=== PATIENT | female | born 1940 | race Caucasian/White ===

== ENCOUNTER → 2017-06-02 | Outpatient (CLI) | payer MEDICARE, OTHER ==
--- NOTE | 2017-06-02 16:00 | WOMENS IMAGING REPORT ---
EXAM DESCRIPTION: BILAT SCREENING MAMMO W/CAD COMPLETED DATE/TIME: 06/02/2017 9:03 am REASON FOR STUDY: SCREENING MAMMO Z12.31 ENCNTR SCREEN MAMMOGRAM FOR MALIGNANT NEOPLASM OF [place] COMPARISON: 2011 to 2015 TECHNIQUE: Standard craniocaudal and mediolateral oblique views of each breast recorded using digita l acquisition. LIMITATIONS: None. FINDINGS: No masses, calcifications or architectural distortion. No areas of suspicion. Read with the assistance of CAD. .[facility] - R2 Cenova Version 1.3 .[facility] - R2 Cenova Version 1.3 .[facility] - R2 Cenova Version 2.4 .[facility] - R2 Cenova Version 2.4 .[facility] - R2 Pile Driver Operator Version 9.2 IMPRESSION: NORMAL MAMMOGRAM. BIRADS 1. BREAST DENSITY: b. There are scattered areas of fibroglandular density. BIRAD: 1 NEGATIVE RECOMMENDATION: ROUTINE SCREENING COMMENT: The patient has been notified of the results by letter per MQSA requirements. Additional no tification policies are in place for contacting patient with suspicious or incomplete findings. Quality ID #[id number]: The [employer] recommends an annual screening mammogram for women aged 40 years or over. This facility utilizes a reminder system to ensure that all patients receive reminder letters, and/or direct phone calls for appointments. This includes reminders for routine scr eening mammograms, diagnostic mammograms, or other Breast Imaging Interventions when appropriate. Th is patient will be placed in the appropriate reminder system. The [employer] (ACR) has developed recommendations for screening MRI of the breast s in certain patient populations, to be used in conjunction with mammography. Breast MRI surveillanc e may be appropriate for women with more than 20% lifetime risk of developing breast cancer as deter mined by genetic testing, significant family history of the disease, or history of mantle radiation f or Hodgkins Disease. ACR Practice Guidelines 2008. TECHNICAL DOCUMENTATION: FINDING NUMBER: (1) ASSESSMENT: (1) JOB ID: [id number] [employer]- All Rights Reserved Reading location - IP/workstation name: [email or web address]
== END ==
LOC: WI 08:29
PROVIDERS: ATTEND Physician Assistant Medical
DX: Z12.31 Encounter for screening mammogram for malignant neoplasm of breast (principal)
CPT/HCPCS: 77067

== ENCOUNTER 2018-02-02 14:43 | Inpatient (IN) | payer MEDICARE ==
--- NOTE | 2018-02-02 15:34 | ER Document Report ---
ED General - General Chief Complaint: Shortness Of Breath Stated Complaint: DIFFICULTY BREATHING Time Seen by Provider: 02/02/18 15:23 Mode of Arrival: Ambulatory Information source: Patient Notes: 77-year-old female with a history of atrial fibrillation and diabetes presents emergency department with complaints of pneumonia that has been present for the last 4 days. Patient states that she was seen at [facility] on Wednesday and diagnosed with double pneumonia. She started on 2 antibiotics which she does not know the names of. She states that she followed up on Wednesday and again to. A repeat chest x-ray was done and it was found that the pneumonia is worsening. Patient was sent to the emergency department for further evaluation and workup. Patient states that today she did feel febrile. She has been having a productive cough with brown sputum. Patient denies any chest pain, difficulty breathing, abdominal pain. Patient does not smoke. She is not on home oxygen. She does use a nebulizer. TRAVEL OUTSIDE OF THE [place] IN LAST 30 DAYS: No - HPI Onset: Last week Onset/Duration: Gradual Quality of pain: No pain Severity: None Pain Level: Denies Associated symptoms: Productive cough, Fever Exacerbated by: Denies Relieved by: Denies Similar symptoms previously: Yes Recently seen / treated by doctor: Yes - Related Data Allergies/Adverse Reactions: levofloxacin [From Levaquin] Allergy (Mild, Verified 02/02/18 14:46) N&V Past Medical History - General Information source: Patient - Social History Smoking Status: Former Smoker Family History: Reviewed & Not Pertinent - Past Medical History Cardiac Medical History: Denies: Hx Heart Attack, Hx Hypertension Pulmonary Medical History: Denies: Hx Asthma Neurological Medical History: Denies: Hx Cerebrovascular Accident, Hx Seizures GI Medical History: Reports: Hx Hiatal Hernia. Denies: Hx Hepatitis, Hx Ulcer Infectious Medical History: Denies: Hx Hepatitis Past Surgical History: Denies: Hx Mastectomy, Hx Open Heart Surgery, Hx Pacemaker - Immunizations Hx Pneumococcal Vaccination: 02/15/07 Review of Systems - Review of Systems Constitutional: Fever EENT: No symptoms reported Cardiovascular: No symptoms reported Respiratory: Cough, Sputum Gastrointestinal: No symptoms reported Genitourinary: No symptoms reported Female Genitourinary: No symptoms reported Musculoskeletal: No symptoms reported Skin: No symptoms reported Hematologic/Lymphatic: No symptoms reported Neurological/Psychological: No symptoms reported -: Yes All other systems reviewed and negative Physical Exam - Vital signs Vitals: Resp Pulse Ox 19 90 L 02/02/18 15:10 02/02/18 15:10 - Notes Notes: PHYSICAL EXAMINATION: GENERAL: Well-appearing, well-nourished and in no acute distress. HEAD: Atraumatic, normocephalic. EYES: Pupils equal round and reactive to light, extraocular movements intact, conjunctiva are normal. ENT: Nares patent, oropharynx clear without exudates. Moist mucous membranes. NECK: Normal range of motion, supple without lymphadenopathy LUNGS: Breath sounds clear to auscultation bilaterally and equal. No wheezes rales or rhonchi. HEART: Irregularly irregular pulse. S1S2 ABDOMEN: Soft, nontender, nondistended abdomen. No guarding, no rebound. No masses appreciated. Female : deferred Musculoskeletal: Normal range of motion, no pitting or edema. No cyanosis. NEUROLOGICAL: Cranial nerves grossly intact. Normal speech, normal gait. Normal sensory, motor exams PSYCH: Normal mood, normal affect. SKIN: Warm, Dry, normal turgor, no rashes or lesions noted. Course - Re-evaluation Re-evalutation: 02/02/18 15:48 EKG: Ventricular rate 92, QRS duration 124, QTc 500, atrial fibrillation, right bundle branch block. 02/02/18 17:49 Labs and imaging obtained. White blood cell count is within normal limits. Chest x-ray shows bilateral pulmonary edema and pneumonia. As the patient has been on 2 antibiotics outpatient I will admit her to the hospitalist for further management. I discussed the plan of care with the patient. She is agreeable with admission. Patient states that she has not seen Dr. Campuzano in the last 3 years. She states that she does not want to see him. She is comfortable with seeing the hospitalist. Dr. Belcher accepts admission of the patient. Patient currently stable. - Vital Signs Vital signs: Temp Pulse Resp BP Pulse Ox 99.1 F 28 H 132/82 H 92 02/02/18 17:09 02/02/18 17:01 02/02/18 17:01 02/02/18 17:01 - Laboratory Result Diagrams: 02/02/18 16:28 02/02/18 16:28 Laboratory results interpreted by me: 12/19/18 12/19/18 16:28 16:28 RDW 16.0 H Plt Count 496 H Seg Neutrophils % 80.1 H Lymphocytes % 11.4 L Sodium 136.4 L Creatinine 0.50 L Glucose 65 L AST 45 H Discharge - Discharge Clinical Impression: Pneumonia Qualifiers: Pneumonia type: due to unspecified organism Laterality: bilateral Lung location: unspecified part of lung Qualified Code(s): J18.9 - Pneumonia, unspecified organism Condition: Stable Disposition: ADMITTED OBSERVATION Admitting Provider: Hospitalist Unit Admitted: Medical Floor Referrals: HEALTH,SCREENING DOC [Primary Care Provider] - Follow up as needed
--- NOTE | 2018-02-02 16:38 | RADIOLOGY REPORT (SQ) ---
EXAM DESCRIPTION: CHEST 2 VIEWS COMPLETED DATE/TIME: 02/02/2018 4:13 pm REASON FOR STUDY: pneumonia COMPARISON: 10/12/2012 EXAM PARAMETERS: NUMBER OF VIEWS: two views TECHNIQUE: Digital Frontal and Lateral radiographic views of the chest acquired. RADIATION DOSE: NA LIMITATIONS: none FINDINGS: LUNGS AND PLEURA: Diffuse patchy abnormal air space density is noted bilaterally with diff erential including pulmonary edema and pneumonia. Probable minimal right effusion. No left effusion . MEDIASTINUM AND HILAR STRUCTURES: No masses or contour abnormalities. HEART AND VASCULAR STRUCTURES: Cardiac silhouette is enlarged and there is mild vascular congestion. BONES: No acute findings. HARDWARE: None in the chest. OTHER: No other significant finding. IMPRESSION: Diffuse patchy abnormal air space density is noted bilaterally with differential includi ng pulmonary edema and pneumonia. TECHNICAL DOCUMENTATION: JOB ID: [id number] [employer]- All Rights Reserved Reading location - IP/workstation name: [email or web address]
[2018-02-02 16:43] LABS: ABSOLUTE EOSINOPHILS # (AUTO) 0.1 10^3/uL (0.0-0.6); ABSOLUTE MONOCYTES (AUTO) 0.6 10^3/uL (0.1-1.4); ABSOLUTE NEUT (AUTO) 7.1 10^3/uL (1.7-8.2); BASOPHILS % (AUTO) 0.3 % (0-2); EOSINOPHILS % (AUTO) 0.9 % (0-6); HEMATOCRIT 37.8 % (36.0-47.0); HEMOGLOBIN 12.7 g/dL (12.0-15.5); LYMPHOCYTES % (AUTO) 11.4 % (13-45); MEAN CORPUSCULAR HEMOGLOBIN 28.2 pg (27.0-33.4); MEAN CORPUSCULAR HGB CONC 33.6 g/dL (32.0-36.0); MEAN CORPUSCULAR VOLUME 84 fl (80-97); MONOCYTES % (AUTO) 7.3 % (3-13); PLATELET COUNT 496 10^3/uL (150-450); SEGMENTED NEUTROPHILS % (AUTO) 80.1 % (42-78); TOTAL CELLS COUNTED % (AUTO) 100 %; WHITE BLOOD COUNT 8.8 10^3/uL (4.0-10.5)
[2018-02-02 16:55] LABS: ALANINE AMINOTRANSFERASE 22 U/L (9-52); ALBUMIN 3.6 g/dL (3.5-5.0); ALKALINE PHOSPHATASE 95 U/L (38-126); ANION GAP 10 (5-19); ASPARTATE AMINO TRANSFERASE 45 U/L (14-36); BILIRUBIN,DIRECT 0.3 mg/dL (0.0-0.4); BILIRUBIN,TOTAL 0.3 mg/dL (0.2-1.3); BLOOD UREA NITROGEN 12 mg/dL (7-20); CALCIUM 8.9 mg/dL (8.4-10.2); CARBON DIOXIDE 25 mmol/L (22-30); CHLORIDE 101 mmol/L (98-107); GLUCOSE 65 mg/dL (75-110); POTASSIUM 4.2 mmol/L (3.6-5.0); SODIUM 136.4 mmol/L (137-145)
[2018-02-02] MEDS ORDERED: CEFTRIAXONE INJ 1000 MG VIAL IV ONE (17:41)
[2018-02-02] MEDS ORDERED: DOXYCYCLINE HYCLATE INJ 100 MG VIAL IV ONE (17:43)
[2018-02-02] MEDS ORDERED: DEXTROSE 50%-WATER 25 GM/50 ML DISP.SYRIN IV PRN ×2 (18:06)
[2018-02-02] MEDS ORDERED: DEXTROSE 40% GEL 15 GM TUBE PO PRN ×2 (18:06)
[2018-02-02] MEDS ORDERED: GLUCAGON,HUMAN RECOMB 1 MG INJ IM PRN (18:06)
--- NOTE | 2018-02-02 18:15 | PDOC H&P ---
History of Present Illness Admission Date/PCP: [facility] Patient complains of: cough, SOB, fever History of Present Illness: CHENTE CHILDS is a 77 year old female with a past medical history of axa-[id number]-rvivoomky diabetes mellitus, paroxysmal atrial fibrillation on Eliquis, GERD and history of dermatomyositis who presented with cough, fever and shortness of breath. Patient says that her grandson had some URTI symptoms weeks ago. She started pike ving some nasal congestion and nonproductive cough more than a week ago. She says that on last week, she developed gradually progressive shortness of breath. Her cough also started getting more productive with dark brownish sputum. She was seen in an outpatient clinic on Wednesday and was diagnosed with pneumonia and was prescribed with Augmentin and doxycycline. She said that she started taking the antibiotics on Wednesday but had persistence of symptoms. She had worsening shortness of breath. She says that earlier today, she had subjective fever with no chills. In the ER, her O2 sat was 90% on room air. She is not on home oxygen. Chest x-ray shows bilateral pneumonia. She denies chest pain, palpitations or dizziness. Past Medical History Cardiac Medical History: Reports: Atrial Fibrillation Denies: Myocardial Infarction, Hypertension Pulmonary Medical History: Denies: Asthma Neurological Medical History: Denies: Seizures Endocrine Medical History: Reports: Diabetes Mellitus Type 2 GI Medical History: Reports: Hiatal Hernia Denies: Hepatitis Hematology: Denies: Anemia, Sickle Cell Disease Past Surgical History Past Surgical History: Reports: Tonsillectomy Denies: Amputation, Mastectomy, Pacemaker Social History Smoking Status: Former Smoker Frequency of Alcohol Use: Rare Hx Recreational Drug Use: No Hx Prescription Drug Abuse: No Family History Family History: Reviewed & Not Pertinent Parental Family History Reviewed: Yes - No premature CAD Children Family History Reviewed: No Sibling(s) Family History Reviewed.: No Medication/Allergy Home Medications: Albuterol Sulfate [Proair HFA Inhalation Aerosol 8.5 gm MDI] 2 puff IH Q4HP PRN 02/02/18 Apixaban [Eliquis 5 mg Tablet] 5 mg PO Q12 02/02/18 Canagliflozin [Invokana] 100 mg PO DAILY 02/02/18 Diltiazem HCl [Diltiazem 24Hr ER] 240 mg PO Q12 02/02/18 Ezetimibe [Zetia 10 mg Tablet] 10 mg PO DAILY 02/02/18 Glimepiride [Amaryl 4 mg Tablet] 2 mg PO BID 02/02/18 Ipratropium/Albuterol Sulfate [Duoneb 3 ml Ampul] 3 ml NEB Q8HP PRN 02/02/18 Metformin HCl [Glucophage] 1,000 mg PO BIDBS 02/02/18 Omeprazole 20 mg PO DAILY 02/02/18 Pioglitazone HCl [Actos] 45 mg PO DAILY 02/02/18 Pravastatin Sodium [Pravachol] 20 mg PO DAILY 02/02/18 Allergies/Adverse Reactions: levofloxacin [From Levaquin] Allergy (Mild, Verified 02/02/18 14:46) N&V Review of Systems All systems: reviewed and no additional remarkable complaints except as stated - As mentioned in HPI Physical Exam Vital Signs: Temp Pulse Resp BP Pulse Ox 99.1 F 21 H 139/71 H 93 02/02/18 17:09 02/02/18 18:01 02/02/18 18:01 02/02/18 18:01 Intake & Output 02/01/18 02/02/18 02/03/18 06:59 06:59 06:59 Weight 151 lb 14.376 oz General appearance: PRESENT: no acute distress, well-developed, well-nourished Head exam: PRESENT: atraumatic, normocephalic Eye exam: PRESENT: conjunctiva pink, EOMI, PERRLA. ABSENT: scleral icterus Ear exam: PRESENT: normal external ear exam Mouth exam: PRESENT: moist, tongue midline Neck exam: ABSENT: carotid bruit, JVD, lymphadenopathy, thyromegaly Respiratory exam: PRESENT: crackles - Significant crackles mid to base bilaterally, rhonchi. ABSENT: wheezes Pulses: PRESENT: normal dorsalis pedis pul GI/Abdominal exam: PRESENT: normal bowel sounds, soft. ABSENT: distended, guarding, mass, organolmegaly, rebound, tenderness Rectal exam: PRESENT: deferred Results Laboratory Results: 02/02/18 16:28 02/02/18 16:28 02/02/18 02/02/18 16:28 16:28 WBC 8.8 RBC 4.50 Hgb 12.7 Hct 37.8 MCV 84 MCH 28.2 MCHC 33.6 RDW 16.0 H Plt Count 496 H Seg Neutrophils % 80.1 H Lymphocytes % 11.4 L Monocytes % 7.3 Eosinophils % 0.9 Basophils % 0.3 Absolute Neutrophils 7.1 Absolute Lymphocytes 1.0 Absolute Monocytes 0.6 Absolute Eosinophils 0.1 Absolute Basophils 0.0 Sodium 136.4 L Potassium 4.2 Chloride 101 Carbon Dioxide 25 Anion Gap 10 BUN 12 Creatinine 0.50 L Est GFR ( Amer) > 60 Est GFR (Non-Af Amer) > 60 Glucose 65 L Calcium 8.9 Total Bilirubin 0.3 AST 45 H ALT 22 Alkaline Phosphatase 95 Total Protein 7.0 Albumin 3.6 02/02/18 16:28 Troponin I < 0.012 Impressions: Chest X-Ray 02/02/18 15:31 IMPRESSION: Diffuse patchy abnormal air space density is noted bilaterally with differential including pulmonary edema and pneumonia. Assessment & Plan - Diagnosis (1) Acute respiratory failure with hypoxemia Is this a current diagnosis for this admission?: Yes Plan: Secondary to pneumonia. Patient saturations improved to 94% on 3 L of nasal cannula. (2) Pneumonia Qualifiers: Pneumonia type: due to unspecified organism Laterality: bilateral Lung location: unspecified part of lung Qualified Code(s): J18.9 - Pneumonia, unspecified organism Is this a current diagnosis for this admission?: Yes Plan: Patient denies recent hospitalization. She does have a recent sick contact. Patient has failed outpatient antibiotics particularly Augmentin and doxycycline. Will broaden IV antibiotic coverage for now. Will order a sputum culture. Will also do flu testing. (3) Paroxysmal atrial fibrillation Is this a current diagnosis for this admission?: Yes Plan: Currently in sinus rhythm. Continue Eliqupadmini and p.o. Janym. - Time Time Spent: 30 to 50 Minutes
--- NOTE | 2018-02-02 18:41 | EKG REPORT ---
SEVERITY:- ABNORMAL ECG - ATRIAL FIBRILLATION, V-RATE 64-109 RIGHT BUNDLE BRANCH BLOCK : Confirmed by: Allan Myers MD 02-Feb-2018 18:40:32
[2018-02-02] MEDS ORDERED: VANCOMYCIN HCL 0 MG in DEXTROSE 5%-WATER 250 ML IV NR (21:30)
[2018-02-02] MEDS ORDERED: HEPARIN SOD (PORCINE) 5,000 UNIT/ML 1 ML SYRINGE SUBCUT SCH (22:00)
[2018-02-02] MEDS ORDERED: AZITHROMYCIN 500 MG in DEXTROSE 5%-WATER 250 ML IV SCH (22:00)
[2018-02-02] MEDS ORDERED: VANCOMYCIN HCL 1,000 MG in DEXTROSE 5%-WATER 250 ML IV SCH (22:00)
[2018-02-02] MEDS: ACETYLCYSTEINE 10% NEB 400 MG/4 ML VIAL NEB SCH (22:57)
[2018-02-02] MEDS: ALBUTEROL SULFATE 0.083% NEB 2.5 MG/3 ML AMPUL NEB SCH (22:57)
[2018-02-02] MEDS ORDERED: AZITHROMYCIN INJ 500 MG VIAL IV PRN (23:06)
[2018-02-02] MEDS ORDERED: VANCOMYCIN HCL INJ 1000 MG VIAL IV PRN (23:08)
[2018-02-02] MEDS: PIPERACILLIN SODIUM/TAZOBACTAM 3.375 GM in NORMAL SALINE 100 ML IV SCH (23:14)
[2018-02-02] MEDS: DILTIAZEM HCL 240 MG CAPSULE.CR PO SCH (23:15)
[2018-02-02 23:58] LABS: A TYPE INFLUENZA AG NEGATIVE (NEGATIVE); B INFLUENZA AG NEGATIVE (NEGATIVE)
[2018-02-03] MEDS ORDERED: AZITHROMYCIN 500 MG in DEXTROSE 5%-WATER 250 ML IV ONE ×2
[2018-02-03] MEDS ORDERED: VANCOMYCIN HCL 1,000 MG in DEXTROSE 5%-WATER 250 ML IV ONE (01:00)
[2018-02-03] MEDS: ALBUTEROL SULFATE 0.083% NEB 2.5 MG/3 ML AMPUL NEB SCH ×4 (01:59→20:50)
[2018-02-03] MEDS: ACETYLCYSTEINE 10% NEB 400 MG/4 ML VIAL NEB SCH ×4 (02:00→20:50)
[2018-02-03] MEDS: PIPERACILLIN SODIUM/TAZOBACTAM 3.375 GM in NORMAL SALINE 100 ML IV SCH ×4 (04:17→21:43)
[2018-02-03] MEDS ORDERED: LANSOPRAZOLE 15 MG TAB.RAP.DR ONE (04:59)
[2018-02-03] MEDS: LANSOPRAZOLE 15 MG TAB.RAP.DR PO SCH (05:00)
[2018-02-03] MEDS: DILTIAZEM HCL 240 MG CAPSULE.CR PO SCH ×2 (09:05→21:44)
[2018-02-03] MEDS: MAGNESIUM OXIDE 400 MG TABLET PO SCH (09:05)
[2018-02-03] MEDS: APIXABAN 5 MG TABLET PO SCH ×2 (09:06→17:34)
[2018-02-03] MEDS: ACETAMINOPHEN 325 MG TABLET PO PRN ×2 (09:36→21:51)
[2018-02-03] MEDS ORDERED: AZITHROMYCIN INJ 500 MG VIAL IV SCH (10:00)
[2018-02-03] MEDS ORDERED: APIXABAN 2.5 MG TABLET PO SCH (10:00)
[2018-02-03] MEDS ORDERED: DILTIAZEM HCL 240 MG PO SCH (10:00)
[2018-02-03] MEDS: VANCOMYCIN HCL 1,000 MG in DEXTROSE 5%-WATER 250 ML IV SCH (17:38)
--- NOTE | 2018-02-03 19:20 | PDOC PROGRESS REPORT ---
Subjective Progress Note for:: 02/03/18 Subjective:: CHENTE CHILDS is a 77 year old female with a past medical history of dbi-ftopwpo-ylzauwegg diabetes mellitus, paroxysmal atrial fibrillation on Eliquis, GERD and history of dermatomyositis who presented with cough, fever and shortness of breath who was admitted with bilateral pneumonia failing two outpatient antibiotics. No acute event overnight. Upon encounter this morning, patient appeared more comfortable. She says that she still feels short of breath but this has improved compared to yesterday. She says she is now starting to cough out more brownish sputum. No chest pain no fever chills. Reason For Visit: ACUTE HYPOXIC RESPIRATORY FAILURE,PNEUMONIA Physical Exam Vital Signs: Temp Pulse Resp BP Pulse Ox 98.1 F 74 14 116/68 92 02/03/18 11:48 02/03/18 13:55 02/03/18 13:50 02/03/18 11:48 02/03/18 13:50 Intake & Output 02/02/18 02/03/18 02/04/18 06:59 06:59 06:59 Intake Total 700 1224 Balance 700 1224 Weight 151 lb 14.376 oz General appearance: PRESENT: no acute distress, well-developed, well-nourished Head exam: PRESENT: atraumatic, normocephalic Eye exam: PRESENT: conjunctiva pink, EOMI, PERRLA. ABSENT: scleral icterus Ear exam: PRESENT: normal external ear exam Mouth exam: PRESENT: moist, tongue midline Neck exam: ABSENT: carotid bruit, JVD, lymphadenopathy, thyromegaly Respiratory exam: PRESENT: crackles - Crackles in the bases improved from yesterday. ABSENT: rales, rhonchi, wheezes Cardiovascular exam: PRESENT: RRR. ABSENT: diastolic murmur, rubs, systolic murmur Pulses: PRESENT: normal dorsalis pedis pul GI/Abdominal exam: PRESENT: normal bowel sounds, soft. ABSENT: distended, guarding, mass, organolmegaly, rebound, tenderness Rectal exam: PRESENT: deferred Neurological exam: PRESENT: alert, awake, oriented to person, oriented to place, oriented to time, oriented to situation, CN II-XII grossly intact. ABSENT: motor sensory deficit Results Laboratory Results: 02/02/18 16:28 02/02/18 16:28 02/02/18 16:28 Troponin I < 0.012 Impressions: Chest X-Ray 02/02/18 15:31 IMPRESSION: Diffuse patchy abnormal air space density is noted bilaterally with differential including pulmonary edema and pneumonia. Assessment & Plan - Diagnosis (1) Acute respiratory failure with hypoxemia Is this a current diagnosis for this admission?: Yes Plan: Saturating on 2 L nasal cannula. Secondary to pneumonia. (2) Pneumonia Qualifiers: Pneumonia type: due to unspecified organism Laterality: bilateral Lung location: unspecified part of lung Qualified Code(s): J18.9 - Pneumonia, u nspecified organism Is this a current diagnosis for this admission?: Yes Plan: Patient denies recent hospitalization. She does have a recent sick contact. Patient has failed outpatient antibiotics particularly Augmentin and doxycycline. Continue broad IV antibiotic coverage for now. Sputum culture pending. Flu testing negative. (3) Paroxysmal atrial fibrillation Is this a current diagnosis for this admission?: Yes Plan: Currently in sinus rhythm. Continue Eliquis and p.o. Cardizem. - Time Time Spent with patient: 15-24 minutes
[2018-02-03] MEDS: AZITHROMYCIN 500 MG in DEXTROSE 5%-WATER 250 ML IV SCH (22:42)
[2018-02-04] MEDS: ALBUTEROL SULFATE 0.083% NEB 2.5 MG/3 ML AMPUL NEB SCH ×4 (01:54→20:30)
[2018-02-04] MEDS: PIPERACILLIN SODIUM/TAZOBACTAM 3.375 GM in NORMAL SALINE 100 ML IV SCH ×4 (03:20→21:14)
[2018-02-04] MEDS: ACETYLCYSTEINE 10% NEB 400 MG/4 ML VIAL NEB SCH ×4 (03:43→20:30)
[2018-02-04] MEDS: LANSOPRAZOLE 15 MG TAB.RAP.DR PO SCH (05:24)
[2018-02-04] MEDS: VANCOMYCIN HCL 1,000 MG in DEXTROSE 5%-WATER 250 ML IV SCH ×2 (05:24→17:22)
[2018-02-04] MEDS: MAGNESIUM OXIDE 400 MG TABLET PO SCH (09:06)
[2018-02-04] MEDS: APIXABAN 5 MG TABLET PO SCH ×2 (09:06→17:23)
[2018-02-04] MEDS: DILTIAZEM HCL 240 MG CAPSULE.CR PO SCH ×2 (09:47→21:09)
--- NOTE | 2018-02-04 16:09 | PDOC PROGRESS REPORT ---
Subjective Progress Note for:: 02/04/18 Subjective:: CHENTE CHILDS is a 77 year old female with a past medical history of mpj-opbsrmh-zpxzpattd diabetes mellitus, paroxysmal atrial fibrillation on Eliquis, GERD and history of dermatomyositis who presented with cough, fever and shortness of breath who was admitted with bilateral pneumonia failing two outpatient antibiotics. No acute event overnight. Upon encounter this morning, patient appeared comfortable. She says that her shortness of breath continued to improve she says she is not at her baseline yet.. She is saturating well on 2 L of nasal cannula. Patient ambulated in the hallway and had shortness of breath after a few steps. No chest pain, no fever chills. Reason For Visit: ACUTE HYPOXIC RESPIRATORY FAILURE,PNEUMONIA Physical Exam Vital Signs: Temp Pulse Resp BP Pulse Ox 98.8 F 85 16 133/72 H 94 02/04/18 11:50 02/04/18 14:01 02/04/18 14:01 02/04/18 11:50 02/04/18 14:01 Intake & Output 02/03/18 02/04/18 02/05/18 06:59 06:59 06:59 Intake Total 700 3106 200 Balance 700 3106 200 Weight 151 lb 14.376 oz 151 lb 10.848 oz General appearance: PRESENT: no acute distress, well-developed, well-nourished Head exam: PRESENT: atraumatic, normocephalic Eye exam: PRESENT: conjunctiva pink, EOMI, PERRLA. ABSENT: scleral icterus Ear exam: PRESENT: normal external ear exam Mouth exam: PRESENT: moist, tongue midline Neck exam: ABSENT: carotid bruit, JVD, lymphadenopathy, thyromegaly Respiratory exam: PRESENT: crackles - Occasional crackles on the bases, significantly improved from yesterday. ABSENT: rales, rhonchi, wheezes Cardiovascular exam: PRESENT: RRR. ABSENT: diastolic murmur, rubs, systolic murmur Pulses: PRESENT: normal dorsalis pedis pul GI/Abdominal exam: PRESENT: normal bowel sounds, soft. ABSENT: distended, guarding, mass, organolmegaly, rebound, tenderness Rectal exam: PRESENT: deferred Neurological exam: PRESENT: alert, awake, oriented to person, oriented to place, oriented to time, oriented to situation, CN II-XII grossly intact. ABSENT: motor sensory deficit Results Laboratory Results: 02/02/18 16:28 02/02/18 16:28 02/02/18 16:28 Troponin I < 0.012 Impressions: Chest X-Ray 02/02/18 15:31 IMPRESSION: Diffuse patchy abnormal air space density is noted bilaterally with differential including pulmonary edema and pneumonia. Assessment & Plan - Diagnosis (1) Acute respiratory failure with hypoxemia Is this a current diagnosis for this admission?: Yes Plan: Improving. Saturating on 2 L nasal cannula. Secondary to pneumonia. (2) Pneumonia Qualifiers: Pneumonia type: due to unspecified organism Laterality: bilateral Lung location: unspecified part of lung Qualified Code(s): J18.9 - Pneumonia, unspecified organism Is this a current diagnosis for this admission?: Yes Plan: Patient denies recent hospitalization. She does have a recent sick contact. Patient has failed outpatient antibiotics particularly Augmentin and doxycycline. Continue broad IV antibiotic coverage for now. Sputum culture pending. Flu testing negative. (3) Paroxysmal atrial fibrillation Is this a current diagnosis for this admission?: Yes Plan: Currently in sinus rhythm. Continue Eliquis and p.o. Cardizem. - Time Time Spent with patient: 15-24 minutes
[2018-02-04] MEDS: INSULIN LISPRO 100 UNIT/ML 3 ML VIAL SUBCUT PRN (17:23)
[2018-02-04] MEDS: ACETAMINOPHEN 325 MG TABLET PO PRN (21:13)
[2018-02-04] MEDS: AZITHROMYCIN 500 MG in DEXTROSE 5%-WATER 250 ML IV SCH (22:06)
[2018-02-05] MEDS: ACETYLCYSTEINE 10% NEB 400 MG/4 ML VIAL NEB SCH ×4 (01:53→19:21)
[2018-02-05] MEDS: ALBUTEROL SULFATE 0.083% NEB 2.5 MG/3 ML AMPUL NEB SCH ×4 (01:53→19:21)
[2018-02-05] MEDS: PIPERACILLIN SODIUM/TAZOBACTAM 3.375 GM in NORMAL SALINE 100 ML IV SCH ×4 (02:32→21:09)
[2018-02-05] MEDS: LANSOPRAZOLE 15 MG TAB.RAP.DR PO SCH (05:26)
[2018-02-05] MEDS: VANCOMYCIN HCL 1,000 MG in DEXTROSE 5%-WATER 250 ML IV SCH ×3 (05:34→22:58)
[2018-02-05 05:47] LABS: VANCOMYCIN,TROUGH 7.2 ug/mL (5.0-20.0)
[2018-02-05] MEDS: ACETAMINOPHEN 325 MG TABLET PO PRN (08:39)
[2018-02-05] MEDS: MAGNESIUM OXIDE 400 MG TABLET PO SCH (09:29)
[2018-02-05] MEDS: APIXABAN 5 MG TABLET PO SCH ×2 (09:29→17:19)
[2018-02-05] MEDS: DILTIAZEM HCL 240 MG CAPSULE.CR PO SCH ×2 (09:29→21:06)
--- NOTE | 2018-02-05 09:43 | RADIOLOGY REPORT (SQ) ---
EXAM DESCRIPTION: CHEST SINGLE VIEW COMPLETED DATE/TIME: 02/05/2018 9:30 am REASON FOR STUDY: Pneumonia, decreased O2 sat COMPARISON: 2012, 02/02/2018 EXAM PARAMETERS: NUMBER OF VIEWS: One view. TECHNIQUE: Single frontal radiographic view of the chest acquired. RADIATION DOSE: NA LIMITATIONS: None. FINDINGS: LUNGS AND PLEURA: Extensive alveolar and interstitial opacities more prominent peripheral. Slightly more opacity at the lung bases and seen previously. MEDIASTINUM AND HILAR STRUCTURES: No masses. Contour normal. HEART AND VASCULAR STRUCTURES: Heart enlarged. Vascular congestion. BONES: No acute findings. HARDWARE: None in the chest. OTHER: No other significant finding. IMPRESSION: Congestive heart failure with possible alveolar pulmonary edema versus basilar pneumonia . Interstitial changes worrisome for underlying pulmonary fibrosis. TECHNICAL DOCUMENTATION: JOB ID: [id number] [employer]- All Rights Reserved Reading location - IP/workstation name: [email or web address]
[2018-02-05] MEDS ORDERED: FUROSEMIDE INJ/PF 20 MG/2 ML SDV IV ONE (17:30)
--- NOTE | 2018-02-05 17:35 | PDOC PROGRESS REPORT ---
Subjective Progress Note for:: 02/05/18 Subjective:: CHENTE CHILDS is a 77 year old female with a past medical history of epv-pgqhnrk-rxwmjnrhy diabetes mellitus, paroxysmal atrial fibrillation on Eliquis, GERD and history of dermatomyositis who presented with cough, fever and shortness of breath who was admitted with bilateral pneumonia failing two outpatient antibiotics. No acute event overnight. Upon encounter this morning, patient appeared comfortable. She says that her shortness of breath continues to improve but does not feel she is at her baseline yet. She is saturating well on 2 L of nasal cannula at rest. Patient ambulated in the hallway again this morning and desaturated to 85%. No chest pain, no fever chills. Reason For Visit: ACUTE HYPOXIC RESPIRATORY FAILURE,PNEUMONIA Physical Exam Vital Signs: Temp Pulse Resp BP Pulse Ox 98.8 F 73 17 124/52 L 91 L 02/05/18 15:38 02/05/18 15:38 02/05/18 15:38 02/05/18 15:38 02/05/18 15:38 Intake & Output 02/04/18 02/05/18 02/06/18 06:59 06:59 06:59 Intake Total 3106 2215 700 Balance 3106 2215 700 Weight 151 lb 10.848 oz 151 lb 10.848 oz General appearance: PRESENT: no acute distress, well-developed, well-nourished Head exam: PRESENT: atraumatic, normocephalic Eye exam: PRESENT: conjunctiva pink, EOMI, PERRLA. ABSENT: scleral icterus Ear exam: PRESENT: normal external ear exam Mouth exam: PRESENT: moist, tongue midline Neck exam: ABSENT: carotid bruit, JVD, lymphadenopathy, thyromegaly Respiratory exam: PRESENT: crackles - on the bases. ABSENT: rales, rhonchi, wheezes Cardiovascular exam: PRESENT: RRR. ABSENT: diastolic murmur, rubs, systolic murmur Pulses: PRESENT: normal dorsalis pedis pul GI/Abdominal exam: PRESENT: normal bowel sounds, soft. ABSENT: distended, guarding, mass, organolmegaly, rebound, tenderness Rectal exam: PRESENT: deferred Neurological exam: PRESENT: alert, awake, oriented to person, oriented to place, oriented to time, oriented to situation, CN II-XII grossly intact. ABSENT: motor sensory deficit Results Laboratory Results: 02/02/18 16:28 02/02/18 16:28 02/02/18 16:28 Troponin I < 0.012 Impressions: Chest X-Ray 02/05/18 00:00 IMPRESSION: Congestive heart failure with possible alveolar pulmonary edema versus basilar pneumonia. Interstitial changes worrisome for underlying pulmonary fibrosis. Assessment & Plan - Diagnosis (1) Acute respiratory failure with hypoxemia Is this a current diagnosis for this admission?: Yes Plan: Improving. Secondary to pneumonia. She is saturating well on 2 L of nasal cannula at rest. Patient ambulated in the hallway again this morning and jovan aturated to 85%. (2) Pneumonia Qualifiers: Pneumonia type: due to unspecified organism Laterality: bilateral Lung location: unspecified part of lung Qualified Code(s): J18.9 - Pneumonia, unspecified organism Is this a current diagnosis for this admission?: Yes Plan: Patient denies recent hospitalization. She does have a recent sick contact. Patient has failed outpatient antibiotics particularly Augmentin and doxy cycline. Continue broad IV antibiotic coverage for now. Flu testing negative. (3) Paroxysmal atrial fibrillation Is this a current diagnosis for this admission?: Yes Plan: Currently in sinus rhythm. Continue Eliquis and p.o. Cardizem. - Time Time Spent with patient: 15-24 minutes
--- NOTE | 2018-02-05 18:11 | RADIOLOGY REPORT (SQ) ---
EXAM DESCRIPTION: CT CHEST WITHOUT COMPLETED DATE/TIME: 02/05/2018 5:56 pm REASON FOR STUDY: pna vs pulm edema, ?pulm fibrosis COMPARISON: Chest radiograph, 02/05/2018, CT chest, 10/13/2012 TECHNIQUE: CT scan performed of the chest without intravenous contrast. Images reviewed with lung, soft tissue and bone windows. Reconstructed coronal and sagittal MPR images reviewed. All images st ored on PACS. All CT scanners at this facility use dose modulation, iterative reconstruction, and/or weight based d osing when appropriate to reduce radiation dose to as low as reasonably achievable (ALARA). [facility]: Dose Right [facility]: CareDose [facility]: Dose Right [facility]: Teradose 4D [facility]: Smart [employer] RADIATION DOSE: CT Rad equipment meets quality standard of care and radiation dose reduction techniq ues were employed. CTDIvol: 10.1 mGy. DLP: 356 mGy-cm. mGy. LIMITATIONS: No technical limitations. FINDINGS: LUNGS AND PLEURA: There is pulmonary fibrosis in a pattern without clear apical to basal g radient, featuring peripheral interstitial and ground-glass pulmonary opacity and mild tubular bronch iectasis. No significant bronchiolectasis or honeycombing. HILAR AND MEDIASTINAL STRUCTURES: No identified masses or abnormal nodes. No obvious aneurysm. HEART AND VASCULAR STRUCTURES: Cardiomegaly with 3 vessel coronary artery calcifications. UPPER ABDOMEN: No significant findings. Limited exam. THYROID AND OTHER SOFT TISSUES: No masses. No adenopathy. BONES: No significant finding. HARDWARE: None in the chest. OTHER: No other significant findings. IMPRESSION: 1. There is pulmonary fibrosis in a pattern without clear apical to basal gradient, fea turing peripheral interstitial and ground-glass pulmonary opacity and mild tubular bronchiectasis. N o significant bronchiolectasis or honeycombing. Findings are in an "inconsistent with UIP" pattern b y ATS pulmonary fibrosis criteria. Primary differential consideration is NSIP. 2. Cardiomegaly and coronary artery disease. TECHNICAL DOCUMENTATION: JOB ID: [id number] Quality ID # [id number]: Final reports with documentation of one or more dose reduction techniques (e.g., Au tomated exposure control, adjustment of the mA and/or kV according to patient size, use of iterative reconstruction technique) 2010 [employer]- All Rights Reserved Reading location - IP/workstation name: [email or web address]
[2018-02-05] MEDS: AZITHROMYCIN 500 MG in DEXTROSE 5%-WATER 250 ML IV SCH (21:47)
[2018-02-06] MEDS: ALBUTEROL SULFATE 0.083% NEB 2.5 MG/3 ML AMPUL NEB SCH ×4 (01:24→20:11)
[2018-02-06] MEDS: ACETYLCYSTEINE 10% NEB 400 MG/4 ML VIAL NEB SCH ×4 (01:24→20:11)
[2018-02-06] MEDS: PIPERACILLIN SODIUM/TAZOBACTAM 3.375 GM in NORMAL SALINE 100 ML IV SCH ×4 (03:01→21:49)
[2018-02-06] MEDS: LANSOPRAZOLE 15 MG TAB.RAP.DR PO SCH (05:14)
[2018-02-06] MEDS: VANCOMYCIN HCL 1,000 MG in DEXTROSE 5%-WATER 250 ML IV SCH ×2 (05:14→13:14)
[2018-02-06] MEDS: ACETAMINOPHEN 325 MG TABLET PO PRN ×3 (05:15→18:29)
[2018-02-06 05:33] LABS: ABSOLUTE BASOPHILS # (AUTO) 0.1 10^3/uL (0.0-0.2); ABSOLUTE EOSINOPHILS # (AUTO) 0.1 10^3/uL (0.0-0.6); ABSOLUTE LYMPHOCYTES (AUTO) 0.8 10^3/uL (0.5-4.7); ABSOLUTE MONOCYTES (AUTO) 0.6 10^3/uL (0.1-1.4); BASOPHILS % (AUTO) 0.7 % (0-2); EOSINOPHILS % (AUTO) 1.5 % (0-6); HEMATOCRIT 37.5 % (36.0-47.0); HEMOGLOBIN 12.7 g/dL (12.0-15.5); LYMPHOCYTES % (AUTO) 9.5 % (13-45); MEAN CORPUSCULAR HEMOGLOBIN 28.1 pg (27.0-33.4); MEAN CORPUSCULAR HGB CONC 33.9 g/dL (32.0-36.0); MEAN CORPUSCULAR VOLUME 83 fl (80-97); MONOCYTES % (AUTO) 7.1 % (3-13); PLATELET COUNT 460 10^3/uL (150-450); RED BLOOD COUNT 4.52 10^6/uL (3.72-5.28); SEGMENTED NEUTROPHILS % (AUTO) 81.2 % (42-78); TOTAL CELLS COUNTED % (AUTO) 100 %; WHITE BLOOD COUNT 8.7 10^3/uL (4.0-10.5)
[2018-02-06 05:59] LABS: ANION GAP 8 (5-19); BLOOD UREA NITROGEN 8 mg/dL (7-20); CALCIUM 8.5 mg/dL (8.4-10.2); CARBON DIOXIDE 30 mmol/L (22-30); CHLORIDE 102 mmol/L (98-107); GLUCOSE 130 mg/dL (75-110); SODIUM 139.6 mmol/L (137-145)
[2018-02-06 06:08] LABS: POTASSIUM 2.9 mmol/L (3.6-5.0)
[2018-02-06] MEDS ORDERED: POTASSIUM CHLORIDE 10 MEQ CAPSULE.ER PO ONE (07:00)
[2018-02-06] MEDS: POTASSIUM CHLORIDE 20 MEQ/50 ML RTU IV SCH ×2 (07:03→09:47)
[2018-02-06] MEDS: APIXABAN 5 MG TABLET PO SCH ×2 (09:43→17:17)
[2018-02-06] MEDS: DILTIAZEM HCL 240 MG CAPSULE.CR PO SCH ×2 (09:43→21:49)
[2018-02-06] MEDS: MAGNESIUM OXIDE 400 MG TABLET PO SCH (09:43)
--- NOTE | 2018-02-06 13:27 | PDOC PROGRESS REPORT ---
Subjective Progress Note for:: 02/06/18 Subjective:: CHENTE CHILDS is a 77 year old female with a past medical history of ace-xtmfeyc-ntxtahymj diabetes mellitus, paroxysmal atrial fibrillation on Eliquis, GERD and history of dermatomyositis who presented with cough, fever and shortness of breath who was admitted with bilateral pneumonia failing two outpatient antibiotics. No acute event overnight. She says that her shortness of breath continues to improve and is about the same from yesterday. She is saturating well on 2 L of nasal cannula at rest. She ambulated in the hallway yesterday morning 02/05/18 and desaturated to 85%. She is not onh ome O2. No chest pain, no fever chills. Reason For Visit: ACUTE HYPOXIC RESPIRATORY FAILURE,PNEUMONIA Physical Exam Vital Signs: Temp Pulse Resp BP Pulse Ox 98.7 F 100 16 131/59 H 94 02/06/18 11:26 02/06/18 11:26 02/06/18 11:26 02/06/18 11:26 02/06/18 11:26 Intake & Output 02/05/18 02/06/18 02/07/18 06:59 06:59 06:59 Intake Total 2215 2480 283 Balance 2215 2480 283 Weight 151 lb 10.848 oz 154 lb 1.65 oz General appearance: PRESENT: no acute distress, well-developed, well-nourished Head exam: PRESENT: atraumatic, normocephalic Eye exam: PRESENT: conjunctiva pink, EOMI, PERRLA. ABSENT: scleral icterus Ear exam: PRESENT: normal external ear exam Mouth exam: PRESENT: moist, tongue midline Neck exam: ABSENT: carotid bruit, JVD, lymphadenopathy, thyromegaly Respiratory exam: PRESENT: rales - rales on the bases. ABSENT: rhonchi, wheezes Cardiovascular exam: PRESENT: RRR. ABSENT: diastolic murmur, rubs, systolic murmur Pulses: PRESENT: normal dorsalis pedis pul GI/Abdominal exam: PRESENT: normal bowel sounds, soft. ABSENT: distended, guarding, mass, organolmegaly, rebound, tenderness Rectal exam: PRESENT: deferred Neurological exam: PRESENT: alert, awake, oriented to person, oriented to place, oriented to time, oriented to situation, CN II-XII grossly intact. ABSENT: motor sensory deficit Results Laboratory Results: 02/06/18 04:45 02/06/18 04:45 02/06/18 02/06/18 02/06/18 04:45 04:45 04:45 WBC 8.7 RBC 4.52 Hgb 12.7 Hct 37.5 MCV 83 MCH 28.1 MCHC 33.9 RDW 16.0 H Plt Count 460 H Seg Neutrophils % 81.2 H Lymphocytes % 9.5 L Monocytes % 7.1 Eosinophils % 1.5 Basophils % 0.7 Absolute Neutrophils 7.0 Absolute Lymphocytes 0.8 Absolute Monocytes 0.6 Absolute Eosinophils 0.1 Absolute Basophils 0.1 Sodium 139.6 Potassium 2.9 L* Chloride 102 Carbon Dioxide 30 Anion Gap 8 BUN 8 Creatinine 0.45 L Est GFR ( Amer) > 60 Est GFR (Non-Af Amer) > 60 Glucose 130 H Calcium 8.5 Magnesium 1.7 02/02/18 23:20 Sputum Gram Stain - Final 02/02/18 23:20 Sputum Sputum Culture - Final C.albicans/C.dubliniensis 02/02/18 16:28 Troponin I < 0.012 Impressions: Chest X-Ray 02/05/18 00:00 IMPRESSION: Congestive heart failure with possible alveolar pulmonary edema versus basilar pneumonia. Interstitial changes worrisome for underlying pulmonary fibrosis. Chest CT 02/05/18 17:30 IMPRESSION: 1. There is pulmonary fibrosis in a pattern without clear apical to basal gradient, featuring peripheral interstitial and ground-glass pulmonary opacity and mild tubular bronchiectasis. No significant bronchiolectasis or honeycombing. Findings are in an "inconsistent with UIP" pattern by ATS pulmonary fibrosis criteria. Primary differential consideration is NSIP. 2. Cardiomegaly and coronary artery disease. Assessment & Plan - Diagnosis (1) Acute respiratory failure with hypoxemia Is this a current diagnosis for this admission?: Yes Plan: Improving. Secondary to pneumonia. She is saturating well on 2 L of nasal cannula at rest. Patient ambulated in the hallway on 02/05 and desaturated to 85%. Will check ambulatory O2 again today. Chest CT ordered and shows pulmonary fibrosis and tubular bronchiectases. Patient and family denies previous diagnoses of both. Will consult pulmonology for further recommendations. (2) Pulmonary fibrosis Is this a current diagnosis for this admission?: Yes Plan: Pulm consult as mentioned in #1. Note patient also has history of ?dermatomyositis. (3) Pneumonia Qualifiers: Pneumonia type: due to unspecified organism Laterality: bilateral Lung location: unspecified part of lung Qualified Code(s): J18.9 - Pneumonia, unspecified organism Is this a current diagnosis for this admission?: Yes Plan: Patient denies recent hospitalization. She does have a recent sick contact. Patient has failed outpatient antibiotics particularly Augmentin and doxycycline. Continue broad IV antibiotic coverage for now. Flu testing negative. (4) Paroxysmal atrial fibrillation Is this a current diagnosis for this admission?: Yes Plan: Currently in sinus rhythm. Continue Eliquis and p.o. Cardizem. - Time Time Spent with patient: 25-34 minutes
[2018-02-06 18:51] LABS: ANION GAP 9 (5-19); BLOOD UREA NITROGEN 14 mg/dL (7-20); CALCIUM 8.5 mg/dL (8.4-10.2); CARBON DIOXIDE 27 mmol/L (22-30); CHLORIDE 102 mmol/L (98-107); GLUCOSE 224 mg/dL (75-110); SODIUM 138.3 mmol/L (137-145)
[2018-02-06 19:01] LABS: POTASSIUM 4.1 mmol/L (3.6-5.0)
[2018-02-06 22:03] LABS: VANCOMYCIN,TROUGH 20.5 ug/mL (5.0-20.0)
[2018-02-06] MEDS: AZITHROMYCIN 500 MG in DEXTROSE 5%-WATER 250 ML IV SCH (22:54)
[2018-02-07] MEDS: VANCOMYCIN HCL 1,000 MG in DEXTROSE 5%-WATER 250 ML IV SCH ×2 (00:42→05:25)
[2018-02-07] MEDS: ACETAMINOPHEN 325 MG TABLET PO PRN ×2 (00:58→13:34)
[2018-02-07] MEDS: ALBUTEROL SULFATE 0.083% NEB 2.5 MG/3 ML AMPUL NEB SCH ×4 (02:35→20:07)
[2018-02-07] MEDS: ACETYLCYSTEINE 10% NEB 400 MG/4 ML VIAL NEB SCH ×4 (02:35→20:07)
[2018-02-07] MEDS: PIPERACILLIN SODIUM/TAZOBACTAM 3.375 GM in NORMAL SALINE 100 ML IV SCH ×4 (03:02→21:26)
[2018-02-07 05:22] LABS: ABSOLUTE EOSINOPHILS # (AUTO) 0.1 10^3/uL (0.0-0.6); ABSOLUTE LYMPHOCYTES (AUTO) 0.7 10^3/uL (0.5-4.7); ABSOLUTE MONOCYTES (AUTO) 0.8 10^3/uL (0.1-1.4); ABSOLUTE NEUT (AUTO) 7.7 10^3/uL (1.7-8.2); BASOPHILS % (AUTO) 0.4 % (0-2); EOSINOPHILS % (AUTO) 0.9 % (0-6); HEMATOCRIT 37.9 % (36.0-47.0); HEMOGLOBIN 12.5 g/dL (12.0-15.5); LYMPHOCYTES % (AUTO) 7.5 % (13-45); MEAN CORPUSCULAR HEMOGLOBIN 27.7 pg (27.0-33.4); MEAN CORPUSCULAR VOLUME 84 fl (80-97); MONOCYTES % (AUTO) 8.3 % (3-13); PLATELET COUNT 463 10^3/uL (150-450); RED BLOOD COUNT 4.52 10^6/uL (3.72-5.28); RED CELL DISTRIBUTION WIDTH 15.8 % (11.5-14.0); SEGMENTED NEUTROPHILS % (AUTO) 82.9 % (42-78); TOTAL CELLS COUNTED % (AUTO) 100 %; WHITE BLOOD COUNT 9.2 10^3/uL (4.0-10.5)
[2018-02-07] MEDS: LANSOPRAZOLE 15 MG TAB.RAP.DR PO SCH (05:25)
[2018-02-07 05:38] LABS: ANION GAP 7 (5-19); BLOOD UREA NITROGEN 14 mg/dL (7-20); CALCIUM 8.8 mg/dL (8.4-10.2); CARBON DIOXIDE 27 mmol/L (22-30); CHLORIDE 106 mmol/L (98-107); GLUCOSE 181 mg/dL (75-110); POTASSIUM 3.9 mmol/L (3.6-5.0); SODIUM 139.8 mmol/L (137-145)
[2018-02-07] MEDS: ASPIRIN 81 MG TABLET, CHEWABLE PO SCH (09:35)
[2018-02-07] MEDS: DILTIAZEM HCL 240 MG CAPSULE.CR PO SCH ×2 (09:35→21:26)
[2018-02-07] MEDS: APIXABAN 5 MG TABLET PO SCH ×2 (09:35→17:48)
[2018-02-07] MEDS: MAGNESIUM OXIDE 400 MG TABLET PO SCH (09:35)
[2018-02-07] MEDS: INSULIN LISPRO 100 UNIT/ML 3 ML VIAL SUBCUT PRN ×2 (12:06→21:33)
--- NOTE | 2018-02-07 12:13 | PDOC PROGRESS REPORT ---
Subjective Progress Note for:: 02/07/18 Subjective:: CHENTE CHILDS is a 77 year old female with a past medical history of zru-zzmsize-uvpprkudj diabetes mellitus, paroxysmal atrial fibrillation on Eliquis, GERD and history of dermatomyositis who presented with cough, fever and shortness of breath who was admitted with bilateral pneumonia failing two outpatient antibiotics. No acute event overnight. She says that her shortness of breath has remain the same for the past 2 days. She is saturating well on 2 L of nasal cannula at rest. She ambulated again yesterday afternoon and desaturated to 86%. She is not on home O2. No chest pain, no fever chills. Reason For Visit: ACUTE HYPOXIC RESPIRATORY FAILURE,PNEUMONIA Physical Exam Vital Signs: Temp Pulse Resp BP Pulse Ox 98.5 F 87 16 117/79 93 02/07/18 11:15 02/07/18 11:15 02/07/18 11:15 02/07/18 11:15 02/07/18 11:15 Intake & Output 02/06/18 02/07/18 02/08/18 06:59 06:59 06:59 Intake Total 2480 2593 100 Balance 2480 2593 100 Weight 154 lb 1.65 oz 155 lb 6.814 oz General appearance: PRESENT: no acute distress, well-developed, well-nourished Head exam: PRESENT: atraumatic, normocephalic Eye exam: PRESENT: conjunctiva pink, EOMI, PERRLA. ABSENT: scleral icterus Ear exam: PRESENT: normal external ear exam Mouth exam: PRESENT: moist, tongue midline Neck exam: ABSENT: carotid bruit, JVD, lymphadenopathy, thyromegaly Respiratory exam: PRESENT: crackles - fine crackles on mid to base bilaterally. ABSENT: rales, rhonchi, wheezes Cardiovascular exam: PRESENT: RRR. ABSENT: diastolic murmur, rubs, systolic murmur Pulses: PRESENT: normal dorsalis pedis pul GI/Abdominal exam: PRESENT: normal bowel sounds, soft. ABSENT: distended, guarding, mass, organolmegaly, rebound, tenderness Rectal exam: PRESENT: deferred Neurological exam: PRESENT: alert, awake, oriented to person, oriented to place, oriented to time, oriented to situation, CN II-XII grossly intact. ABSENT: motor sensory deficit Results Laboratory Results: 02/07/18 05:07 12/24/18 05:07 02/06/18 02/06/18 02/07/18 18:25 21:33 05:07 WBC 9.2 RBC 4.52 Hgb 12.5 Hct 37.9 MCV 84 MCH 27.7 MCHC 33.0 RDW 15.8 H Plt Count 463 H Seg Neutrophils % 82.9 H Lymphocytes % 7.5 L Monocytes % 8.3 Eosinophils % 0.9 Basophils % 0.4 Absolute Neutrophils 7.7 Absolute Lymphocytes 0.7 Absolute Monocytes 0.8 Absolute Eosinophils 0.1 Absolute Basophils 0.0 Sodium 138.3 Potassium 4.1 D Chloride 102 Carbon Dioxide 27 Anion Gap 9 BUN 14 Creatinine 0.96 1.12 Est GFR ( Amer) > 60 57 L Est GFR (Non-Af Amer) 57 L 47 L Glucose 224 H Calcium 8.5 Magnesium 02/07/18 05:07 WBC RBC Hgb Hct MCV MCH MCHC RDW Plt Count Seg Neutrophils % Lymphocytes % Monocytes % Eosinophils % Basophils % Absolute Neutrophils Absolute Lymphocytes Absolute Monocytes Absolute Eosinophils Absolute Basophils Sodium 139.8 Potassium 3.9 Chloride 106 Carbon Dioxide 27 Anion Gap 7 BUN 14 Creatinine 1.19 Est GFR ( Amer) 53 L Est GFR (Non-Af Amer) 44 L Glucose 181 H Calcium 8.8 Magnesium 1.9 02/02/18 16:28 Troponin I < 0.012 Impressions: Chest X-Ray 02/05/18 00:00 IMPRESSION: Congestive heart failure with possible alveolar pulmonary edema versus basilar pneumonia. Interstitial changes worrisome for underlying pulmonary fibrosis. Chest CT 02/05/18 17:30 IMPRESSION: 1. There is pulmonary fibrosis in a pattern without clear apical to basal gradient, featuring peripheral interstitial and ground-glass pulmonary opacity and mild tubular bronchiectasis. No significant bronchiolectasis or honeycombing. Findings are in an "inconsistent with UIP" pattern by ATS pulmonary fibrosis criteria. Primary differential consideration is NSIP. 2. Cardiomegaly and coronary artery disease. Assessment & Plan - Diagnosis (1) Acute respiratory failure with hypoxemia Is this a current diagnosis for this admission?: Yes Plan: Improving. Secondary to pneumonia. She is saturating well on 2 L of nasal cannula at rest. Patient has desaturation to the 80s on ambulation. She will need home O2. Chest CT done on 02/05 and showed pulmonary fibrosis and tubular bronchiectases (new diagnoses). Patient and family denies previous diagnoses of both. Will consult pulmonology for further recommendations. Discussed with Dr. Rahman over phone who will see and follow patient. CPT also ordered. (2) Pulmonary fibrosis Is this a current diagnosis for this admission?: Yes Plan: Pulm consult as mentioned in #1. Note patient also has history of ?dermatomyositis. Echo also ordered. Report pending. (3) Pneumonia Qualifiers: Pneumonia type: due to unspecified organism Laterality: bilateral Lung location: unspecified part of lung Qualified Code(s): J18.9 - Pneumonia, unspecified organism Is this a current diagnosis for this admission?: Yes Plan: Patient denies recent hospitalization. She does have a recent sick contact. Patient has failed outpatient antibiotics particularly Augmentin and doxycycline. Continue broad IV antibiotic coverage for now. Flu testing negative. Discussed with Dr. Rahman over phone who will see and follow patient. CPT also ordered. Continue breathing treatments and mucomyst. (4) Paroxysmal atrial fibrillation Is this a current diagnosis for this admission?: Yes Plan: Currently in sinus rhythm. Continue Eliquis and p.o. Cardizem. - Time Time Spent with patient: 25-34 minutes
--- NOTE | 2018-02-07 13:41 | XCELERA REPORT ---
[address] [address] Transthoracic Echocardiogram Report Name: CHENTE CHILDS Age: 77 yrs Gender: Female : 1940 Patient Status: Inpatient Patient Location: [address] [place] [address] Study Date: 02/06/2018 08:50 AM Height: 63 in Weight: 154 lb BSA: 1.7 m2 Procedure: A complete two-dimensional transthoracic echocardiogram was performed (2D, M-mode, spectral and color flow Doppler). The study was technically difficult with many images being suboptimal in quality. Reason For Study: SOB,exertional dyspnea,new dx of pulm fibrosis Ordering Physician: JASS SHABAZZ Performed By: Ifeanyi Hillman Interpretation Summary Left ventricular systolic function is low normal. There is mild concentric left ventricular hypertrophy. The left ventricle is grossly normal size. Doppler measurements suggest pseudonormalized left ventricular relaxation, which is associated with grade II/IV or mild to moderate diastolic dysfunction Not all wall segments were well visualized. Wall motion cannot be accurately commented on, but no definite regional wall motion abnormalities noted. The right ventricle is mildly dilated. The right ventricular systolic function is borderline reduced. The right atrium is moderately dilated. The left atrium is moderately dilated. There is no mitral valve stenosis. There is a mild to moderate amount of mitral regurgitation There is a trace amount of aortic regurgitation There is no aortic valve stenosis There is a mild to moderate amount of tricuspid regurgitation There is mild pulmonary hypertension by echo Right ventricular systolic pressure is estimated to be elevated at 30-40mmHg. The aortic root is not well visualized but is probably normal size. The inferior vena cava was not well visualized There is no pericardial effusion. MMode/2D Measurements & Calculations RVDd: 3.7 cm LVIDd: 4.6 cm FS: 44.7 % Ao root diam: 3.0 cm IVSd: 1.5 cm LVIDs: 2.5 cm EDV(Teich): 97.5 ml Ao root area: LVPWd: 1.4 cm ESV(Teich): 23.3 ml 6.9 cm2 EF(Teich): 76.0 % LA dimension: 4.6 cm LVOT diam: 1.9 cmLVLd ap4: 7.7 cm SV(MOD-sp4): LVOT area: EDV(MOD-sp4): 90.0 ml 142.0 ml 2.9 cm2 LVLs ap4: 6.0 cm ESV(MOD-sp4): 52.0 ml EF(MOD-sp4): 63.4 % Doppler Measurements & Calculations MV E max barbara: MV P1/2t max barbara: Ao V2 max: LV V1 max P.5 cm/sec 168.0 cm/sec 155.2 cm/sec 3.9 mmHg MV P1/2t: 75.5 msec Ao max PG: LV V1 mean PG: MVA(P1/2t): 2.9 cm2 10.2 mmHg 1.5 mmHg MV dec slope: Ao V2 mean: LV V1 max: 139.3 cm/sec 97.6 cm/sec 651.7 cm/sec2 Ao mean PG: LV V1 mean: 9.2 mmHg 56.2 cm/sec Ao V2 VTI: 41.7 cm LV V1 VTI: 16.3 cm KAMINI(I,D): 1.1 cm2 KAMINI(V,D): 1.8 cm2 MR max barbara: SV(LVOT): 47.2 ml PA V2 max: TR max barbara: 366.8 cm/sec 80.7 cm/sec 285.0 cm/sec MR max PG: PA max PG: TR max P.0 mmHg 2.6 mmHg 32.5 mmHg RVSP(TR): 42.5 mmHg RAP systole: MV P1/2t-pr_phl: 10.0 mmHg 75.5 msec Left Ventricle The left ventricle is grossly normal size. There is mild concentric left ventricular hypertrophy. Left ventricular systolic function is low normal. Doppler measurements suggest pseudonormalized left ventricular relaxation, which is associated with grade II/IV or mild to moderate diastolic dysfunction. Not all wall segments were well visualized. Wall motion cannot be accurately commented on, but no definite regional wall motion abnormalities noted. Right Ventricle The right ventricle is mildly dilated. The right ventricle appears to be hypertrophied. The right ventricular systolic function is borderline reduced. Atria The right atrium is moderately dilated. The left atrium is moderately dilated. Interarterial septum not well visualized and not well dopplered. Cannot comment on ASD/PFO presence. Mitral Valve There is mild mitral leaflet calcification. There is no mitral valve stenosis. There is a mild to moderate amount of mitral regurgitation. Aortic Valve The aortic valve is mildly calcified. There is no aortic valve stenosis. There is a trace amount of aortic regurgitation. Tricuspid Valve The tricuspid valve is not well visualized, but is grossly normal. There is no tricuspid stenosis. There is a mild to moderate amount of tricuspid regurgitation. There is mild pulmonary hypertension by echo. Right ventricular systolic pressure is estimated to be elevated at 30-40mmHg. Pulmonic Valve The pulmonic valve is not well visualized. Great Vessels The aortic root is not well visualized but is probably normal size. The inferior vena cava was not well visualized. Effusions There is no pericardial effusion. : JASS SHABAZZ > Baldo Cohn
[2018-02-07] MEDS: AZITHROMYCIN 500 MG in DEXTROSE 5%-WATER 250 ML IV SCH (22:34)
[2018-02-08] MEDS: ACETYLCYSTEINE 10% NEB 400 MG/4 ML VIAL NEB SCH ×4 (02:42→19:32)
[2018-02-08] MEDS: ALBUTEROL SULFATE 0.083% NEB 2.5 MG/3 ML AMPUL NEB SCH ×4 (02:42→19:32)
[2018-02-08] MEDS: PIPERACILLIN SODIUM/TAZOBACTAM 3.375 GM in NORMAL SALINE 100 ML IV SCH ×4 (02:50→21:12)
[2018-02-08] MEDS: ACETAMINOPHEN 325 MG TABLET PO PRN ×4 (02:50→21:10)
[2018-02-08] MEDS: LANSOPRAZOLE 15 MG TAB.RAP.DR PO SCH (05:01)
[2018-02-08 05:41] LABS: ANION GAP 8 (5-19); BLOOD UREA NITROGEN 16 mg/dL (7-20); CALCIUM 8.5 mg/dL (8.4-10.2); CARBON DIOXIDE 25 mmol/L (22-30); CHLORIDE 105 mmol/L (98-107); GLUCOSE 168 mg/dL (75-110); POTASSIUM 3.8 mmol/L (3.6-5.0); SODIUM 137.9 mmol/L (137-145)
[2018-02-08] MEDS: DILTIAZEM HCL 240 MG CAPSULE.CR PO SCH ×2 (10:44→21:10)
[2018-02-08] MEDS: MAGNESIUM OXIDE 400 MG TABLET PO SCH (10:44)
[2018-02-08] MEDS: APIXABAN 5 MG TABLET PO SCH ×3 (10:44→21:11)
[2018-02-08] MEDS: ASPIRIN 81 MG TABLET, CHEWABLE PO SCH (10:44)
[2018-02-08] MEDS: INSULIN LISPRO 100 UNIT/ML 3 ML VIAL SUBCUT PRN (11:32)
[2018-02-08] MEDS ORDERED: IPRATROPIUM/ALBUTEROL 0.5-2.5 MG/3 ML AMPUL NEB PRN (14:02)
[2018-02-08] MEDS ORDERED: ALBUTEROL SULFATE HFA (90 MCG/PUFF) 200 PUFF/8.5 GM MDI IH PRN (14:02)
--- NOTE | 2018-02-08 14:56 | PDOC PROGRESS REPORT ---
Subjective Progress Note for:: 02/08/18 Subjective:: 77 year old female with a past medical history of hfv-xhtianj-lonbjbvji diabetes mellitus, paroxysmal atrial fibrillation on Eliquis, GERD and history of dermatomyositis who presented with cough, fever and shortness of breath who was admitted with bilateral pneumonia failing two outpatient antibiotics. No acute event overnight. She says that her shortness of breath has remain the same for the past 2 days. She is saturating well on 2 L of nasal cannula at rest. She ambulated again yesterday afternoon and desaturated to 86%. She is not on home O2. No chest pain, no fever chills. 02/08/2018 no acute events overnight. Patient is comfortably in the chair on 2 L oxygen via nasal cannula. Pulse ox is 95-96 on 2 L. Reason For Visit: ACUTE HYPOXIC RESPIRATORY FAILURE,PNEUMONIA Physical Exam Vital Signs: Temp Pulse Resp BP Pulse Ox 98.6 F 82 16 142/96 H 93 02/08/18 11:01 02/08/18 14:00 02/08/18 13:39 02/08/18 11:01 02/08/18 13:39 Intake & Output 02/07/18 02/08/18 02/09/18 06:59 06:59 06:59 Intake Total 2593 1824 100 Balance 2593 1824 100 Weight 70.5 kg 70.5 kg General appearance: PRESENT: no acute distress Head exam: PRESENT: atraumatic Eye exam: PRESENT: PERRLA Mouth exam: PRESENT: moist Neck exam: ABSENT: carotid bruit, JVD, lymphadenopathy, thyromegaly Respiratory exam: PRESENT: decreased breath sounds Cardiovascular exam: PRESENT: RRR. ABSENT: diastolic murmur, rubs, systolic murmur GI/Abdominal exam: PRESENT: normal bowel sounds, soft. ABSENT: distended, guarding, mass, organolmegaly, rebound, tenderness Neurological exam: PRESENT: alert, awake, oriented to person, oriented to place, oriented to time, oriented to situation, CN II-XII grossly intact. ABSENT: motor sensory deficit Psychiatric exam: PRESENT: appropriate affect, normal mood. ABSENT: homicidal ideation, suicidal ideation Results Laboratory Results: 02/07/18 05:07 02/08/18 04:06 02/08/18 04:06 Sodium 137.9 Potassium 3.8 Chloride 105 Carbon Dioxide 25 Anion Gap 8 BUN 16 Creatinine 1.55 H Est GFR ( Amer) 39 L Est GFR (Non-Af Amer) 33 L Glucose 168 H Calcium 8.5 02/02/18 17:30 Blood Blood Culture - Final NO GROWTH IN 5 DAYS 02/02/18 16:28 Blood Blood Culture - Final NO GROWTH IN 5 DAYS 02/02/18 16:28 Troponin I < 0.012 Impressions: Chest X-Ray 02/05/18 00:00 IMPRESSION: Congestive heart failure with possible alveolar pulmonary edema versus basilar pneumonia. Interstitial changes worrisome for underlying pulmonary fibrosis. Chest CT 02/05/18 17:30 IMPRESSION: 1. There is pulmonary fibrosis in a pattern without clear apical to basal gradient, featuring peripheral interstitial and ground-glass pulmonary opacity and mild tubular bronchiectasis. No significant bronchiolectasis or honeycombing. Findings are in an "inconsistent with UIP" pattern by ATS pulmonary fibrosis criteria. Primary differential consideration is NSIP. 2. Cardiomegaly and coronary artery disease. Assessment & Plan - Diagnosis (1) Acute respiratory failure with hypoxemia Is this a current diagnosis for this admission?: Yes Plan: Improving. Secondary to pneumonia. She is saturating well on 2 L of nasal cannula at rest. Patient has desaturation to the 80s on ambulation. She will need home O2. Chest CT done on 02/05 and showed pulmonary fibrosis and tubular bronchiectases (new diagnoses). Patient and family denies previous diagnoses of both. Will consult pulmonology for further recommendations. Discussed with Dr. Rahman over phone who will see and follow patient. CPT also ordered. 02/08/2018-patient is admitted with acute respiratory failure with hypoxia improving pulse ox is 96% on 2 L. A consult was requested because CT scan shows pulmonary fibrosis and tubular bronchiectasis. (2) Pulmonary fibrosis Is this a current diagnosis for this admission?: Yes Plan: Pulm consult as mentioned in #1. Note patient also has history of ?dermatomyos itis. Echo also ordered. Report pending. 02/08/2018. CT scan shows pulmonary fibrosis and patient also history of dermatomyositis. Echocardiogram shows mild left ventricular systolic dysfunction. Stage II-IV mild to moderate diastolic dysfunction. (3) Pneumonia Qualifiers: Pneumonia type: due to unspecified organism Laterality: bilateral Lung location: unspecified part of lung Qualified Code(s): J18.9 - Pneumonia, unspecified organism Is this a current diagnosis for this admission?: Yes Plan: Patient denies recent hospitalization. She does have a recent sick contact. Patient has failed outpatient antibiotics particularly Augmentin and doxycycline. Continue broad IV antibiotic coverage for now. Flu testing negative. Discussed with Dr. Rahman over phone who will see and follow patient. CPT also ordered. Continue breathing treatments and mucomyst. 02/08/2018-she failed outpatient antibiotics particularly Augmentin doxycycline. Now she is on azithromycin and Zosyn. Vancomycin was discontinued. Cultures are negative so far. - Time Time Spent with patient: 15-24 minutes Smoking Cessation Education: 3 to 10 minutes Medications reviewed and adjusted accordingly: Yes Anticipated discharge: Home
[2018-02-08] MEDS: GLIMEPIRIDE 4 MG TABLET PO SCH (16:03)
[2018-02-08] MEDS ORDERED: (PENDING PHARMACY ID) (Diltiazem Hcl [Diltiazem 24hr Er] 240 MG) PO SCH (22:00)
[2018-02-08] MEDS: AZITHROMYCIN 500 MG in DEXTROSE 5%-WATER 250 ML IV SCH (22:06)
[2018-02-09] MEDS: ALBUTEROL SULFATE 0.083% NEB 2.5 MG/3 ML AMPUL NEB SCH ×4 (01:39→19:46)
[2018-02-09] MEDS: ACETYLCYSTEINE 10% NEB 400 MG/4 ML VIAL NEB SCH ×4 (01:39→19:46)
[2018-02-09] MEDS: PIPERACILLIN SODIUM/TAZOBACTAM 3.375 GM in NORMAL SALINE 100 ML IV SCH ×3 (03:07→15:48)
[2018-02-09] MEDS: LANSOPRAZOLE 15 MG TAB.RAP.DR PO SCH (05:07)
[2018-02-09 06:01] LABS: ABSOLUTE EOSINOPHILS # (AUTO) 0.1 10^3/uL (0.0-0.6); ABSOLUTE LYMPHOCYTES (AUTO) 0.6 10^3/uL (0.5-4.7); ABSOLUTE MONOCYTES (AUTO) 0.6 10^3/uL (0.1-1.4); ABSOLUTE NEUT (AUTO) 7.9 10^3/uL (1.7-8.2); BASOPHILS % (AUTO) 0.4 % (0-2); EOSINOPHILS % (AUTO) 0.8 % (0-6); HEMATOCRIT 37.2 % (36.0-47.0); HEMOGLOBIN 12.2 g/dL (12.0-15.5); MEAN CORPUSCULAR HEMOGLOBIN 27.7 pg (27.0-33.4); MEAN CORPUSCULAR HGB CONC 32.9 g/dL (32.0-36.0); MEAN CORPUSCULAR VOLUME 84 fl (80-97); MONOCYTES % (AUTO) 6.6 % (3-13); PLATELET COUNT 447 10^3/uL (150-450); RED BLOOD COUNT 4.43 10^6/uL (3.72-5.28); RED CELL DISTRIBUTION WIDTH 15.8 % (11.5-14.0); SEGMENTED NEUTROPHILS % (AUTO) 86.2 % (42-78); TOTAL CELLS COUNTED % (AUTO) 100 %; WHITE BLOOD COUNT 9.2 10^3/uL (4.0-10.5)
[2018-02-09 06:32] LABS: ALANINE AMINOTRANSFERASE 17 U/L (9-52); ALBUMIN 3.1 g/dL (3.5-5.0); ALKALINE PHOSPHATASE 90 U/L (38-126); ANION GAP 10 (5-19); ASPARTATE AMINO TRANSFERASE 38 U/L (14-36); BILIRUBIN,DIRECT 0.3 mg/dL (0.0-0.4); BILIRUBIN,TOTAL 0.6 mg/dL (0.2-1.3); BLOOD UREA NITROGEN 16 mg/dL (7-20); CALCIUM 8.8 mg/dL (8.4-10.2); CARBON DIOXIDE 28 mmol/L (22-30); CHLORIDE 104 mmol/L (98-107); GLUCOSE 87 mg/dL (75-110); SODIUM 142.2 mmol/L (137-145); TOTAL PROTEIN 6.7 g/dL (6.3-8.2)
[2018-02-09] MEDS: ACETAMINOPHEN 325 MG TABLET PO PRN ×3 (06:35→23:26)
[2018-02-09] MEDS: GLIMEPIRIDE 4 MG TABLET PO SCH ×2 (07:25→17:39)
[2018-02-09] MEDS: EZETIMIBE 10 MG TABLET PO SCH (09:45)
[2018-02-09] MEDS: APIXABAN 5 MG TABLET PO SCH ×3 (09:45→21:11)
[2018-02-09] MEDS: ASPIRIN 81 MG TABLET, CHEWABLE PO SCH (09:45)
[2018-02-09] MEDS: MAGNESIUM OXIDE 400 MG TABLET PO SCH (09:45)
[2018-02-09] MEDS: DILTIAZEM HCL 240 MG CAPSULE.CR PO SCH ×2 (09:45→21:11)
[2018-02-09] MEDS ORDERED: (PENDING PHARMACY ID) (Pioglitazone Hcl [Actos] 45 MG) PO SCH (10:00)
[2018-02-09] MEDS ORDERED: (PENDING PHARMACY ID) (Canagliflozin [Invokana] 100 MG) PO SCH (10:00)
[2018-02-09] MEDS ORDERED: PIOGLITAZONE HCL 30 MG TABLET PO SCH (10:00)
[2018-02-09] MEDS: INSULIN LISPRO 100 UNIT/ML 3 ML VIAL SUBCUT PRN (12:45)
--- NOTE | 2018-02-09 13:22 | PDOC PROGRESS REPORT ---
Subjective Progress Note for:: 02/09/18 Subjective:: 77 year old female with a past medical history of dpd-yuracml-bdlckelqa diabetes mellitus, paroxysmal atrial fibrillation on Eliquis, GERD and history of dermatomyositis who presented with cough, fever and shortness of breath who was admitted with bilateral pneumonia failing two outpatient antibiotics. No acute event overnight. She says that her shortness of breath has remain the same for the past 2 days. She is saturating well on 2 L of nasal cannula at rest. She ambulated again yesterday afternoon and desaturated to 86%. She is not on home O2. No chest pain, no fever chills. 02/08/2018 no acute events overnight. Patient is comfortably in the chair on 2 L oxygen via nasal cannula. Pulse ox is 95-96 on 2 L. 02/09/2018-no acute events in the last 24 hours. Patient is comfortably in the chair on 2 L oxygen. Pulse ox is 95-96% on [address] scan shows that she has pulmonary fibrosis. Waiting for the pulmonary evaluation. She is also on antibiotic therapy for bilateral pneumonia. Reason For Visit: ACUTE HYPOXIC RESPIRATORY FAILURE,PNEUMONIA Physical Exam Vital Signs: Temp Pulse Resp BP Pulse Ox 99.0 F 68 22 H 122/56 L 91 L 02/09/18 11:11 02/09/18 11:11 02/09/18 11:11 02/09/18 11:11 02/09/18 11:11 Intake & Output 02/08/18 02/09/18 02/10/18 06:59 06:59 06:59 Intake Total 1824 2833 100 Balance 1824 2833 100 Weight 70.5 kg 71.3 kg General appearance: PRESENT: no acute distress Head exam: PRESENT: atraumatic Eye exam: PRESENT: PERRLA Mouth exam: PRESENT: moist Neck exam: ABSENT: carotid bruit, JVD, lymphadenopathy, thyromegaly Respiratory exam: PRESENT: decreased breath sounds, wheezes Cardiovascular exam: PRESENT: tachycardia GI/Abdominal exam: PRESENT: normal bowel sounds, soft. ABSENT: distended, guarding, mass, organolmegaly, rebound, tenderness Neurological exam: PRESENT: alert, awake, oriented to person, oriented to place, oriented to time, oriented to situation, CN II-XII grossly intact. ABSENT: motor sensory deficit Psychiatric exam: PRESENT: appropriate affect, normal mood. ABSENT: homicidal ideation, suicidal ideation Results Laboratory Results: 02/09/18 05:40 02/09/18 05:40 02/09/18 02/09/18 05:40 05:40 WBC 9.2 RBC 4.43 Hgb 12.2 Hct 37.2 MCV 84 MCH 27.7 MCHC 32.9 RDW 15.8 H Plt Count 447 Seg Neutrophils % 86.2 H Lymphocytes % 6.0 L Monocytes % 6.6 Eosinophils % 0.8 Basophils % 0.4 Absolute Neutrophils 7.9 Absolute Lymphocytes 0.6 Absolute Monocytes 0.6 Absolute Eosinophils 0.1 Absolute Basophils 0.0 Sodium 142.2 Potassium 4.0 Chloride 104 Carbon Dioxide 28 Anion Gap 10 BUN 16 Creatinine 1.58 H Est GFR ( Amer) 38 L Est GFR (Non-Af Amer) 32 L Glucose 87 Calcium 8.8 Magnesium 1.9 Total Bilirubin 0.6 AST 38 H ALT 17 Alkaline Phosphatase 90 Total Protein 6.7 Albumin 3.1 L 02/02/18 16:28 Troponin I < 0.012 Impressions: Chest X-Ray 02/05/18 00:00 IMPRESSION: Congestive heart failure with possible alveolar pulmonary edema versus basilar pneumonia. Interstitial changes worrisome for underlying pulmonary fibrosis. Chest CT 02/05/18 17:30 IMPRESSION: 1. There is pulmonary fibrosis in a pattern without clear apical to basal gradient, featuring peripheral interstitial and ground-glass pulmonary opacity and mild tubular bronchiectasis. No significant bronchiolectasis or honeycombing. Findings are in an "inconsistent with UIP" pattern by ATS pulmonary fibrosis criteria. Primary differential consideration is NSIP. 2. Cardiomegaly and coronary artery disease. Assessment & Plan - Diagnosis (1) Acute respiratory failure with hypoxemia Is this a current diagnosis for this admission?: Yes Plan: Improving. Secondary to pneumonia. She is saturating well on 2 L of nasal cannula at rest. Patient has desaturation to the 80s on ambulation. She will need home O2. Chest CT done on 02/05 and showed pulmonary fibrosis and tubular bronchiectases (new diagnoses). Patient and family denies previous diagnoses of both. Will consult pulmonology for further recommendations. Discussed with Dr. Rahman over phone who will see and follow patient. CPT also ordered. 02/08/2018-patient is admitted with acute respiratory failure with hypoxia improving pulse ox is 96% on 2 L. pulmonary consult was requested because CT scan shows pulmonary fibrosis and tubular bronchiectasis. 02/09/2018-acute respiratory failure is high with hypoxia is resolving pulse ox on 2 L is 96%. The plan is to continue to use the BiPAP as needed basis and continued antibiotic therapy for at least another day. (2) Pulmonary fibrosis Is this a current diagnosis for this admission?: Yes Plan: Pulm consult as mentioned in #1. Note patient also has history of ?dermatomyositis. Echo also ordered. Report pending. 02/08/2018. CT scan shows pulmonary fibrosis and patient also history of dermatomyositis. Echocardiogram shows mild left ventricular systolic dysfunction. Stage II-IV mild to moderate diastolic dysfunction. 02/08/2018 patient has recently diagnosed pulmonary fibrosis on CT scan of the chest. Echocardiogram was done on the part of the study. Echocardiogram shows mild left ventricular systolic dysfunction on stage II-IV mild to moderate diastolic dysfunction. (3) Pneumonia Qualifiers: Pneumonia type: due to unspecified organism Laterality: bilateral Lung location: unspecified part of lung Qualified Code(s): J18.9 - Pneumonia, unspecified organism Is this a current diagnosis for this admission?: Yes Plan: Patient denies recent hospitalization. She does have a recent sick contact. Patient has failed outpatient antibiotics particularly Augmentin and doxycycline. Continue broad IV antibiotic coverage for now. Flu testing negative. Discussed with Dr. Rahman over phone who will see and follow patient. CPT also ordered. Continue breathing treatments and mucomyst. 02/08/2018-she failed outpatient antibiotics particularly Augmentin doxycycline. Now she is on azithromycin and Zosyn. Vancomycin was discontinued. Cultures are negative so far. 02/09/2018-patient was treated for community-acquired pneumonia as an outpatient with Augmentin and doxycycline she failed to respond to the therapy here she is getting azithromycin and Zosyn the cultures are negative so far. - Time Time Spent with patient: 15-24 minutes Medications reviewed and adjusted accordingly: Yes Anticipated discharge: Home
[2018-02-09] MEDS: PIOGLITAZONE HCL 30 MG TABLET PO SCH (21:10)
[2018-02-09] MEDS: AZITHROMYCIN 500 MG in DEXTROSE 5%-WATER 250 ML IV SCH (21:12)
[2018-02-10] MEDS: ALBUTEROL SULFATE 0.083% NEB 2.5 MG/3 ML AMPUL NEB SCH ×4 (01:45→19:45)
[2018-02-10] MEDS: ACETYLCYSTEINE 10% NEB 400 MG/4 ML VIAL NEB SCH ×4 (01:45→19:45)
[2018-02-10 04:23] LABS: ABSOLUTE BASOPHILS # (AUTO) 0.1 10^3/uL (0.0-0.2); ABSOLUTE EOSINOPHILS # (AUTO) 0.1 10^3/uL (0.0-0.6); ABSOLUTE LYMPHOCYTES (AUTO) 0.7 10^3/uL (0.5-4.7); ABSOLUTE MONOCYTES (AUTO) 0.7 10^3/uL (0.1-1.4); ABSOLUTE NEUT (AUTO) 7.7 10^3/uL (1.7-8.2); BASOPHILS % (AUTO) 0.7 % (0-2); HEMATOCRIT 35.6 % (36.0-47.0); HEMOGLOBIN 11.6 g/dL (12.0-15.5); LYMPHOCYTES % (AUTO) 7.9 % (13-45); MEAN CORPUSCULAR HEMOGLOBIN 27.1 pg (27.0-33.4); MEAN CORPUSCULAR HGB CONC 32.7 g/dL (32.0-36.0); MEAN CORPUSCULAR VOLUME 83 fl (80-97); MONOCYTES % (AUTO) 7.1 % (3-13); PLATELET COUNT 389 10^3/uL (150-450); RED BLOOD COUNT 4.29 10^6/uL (3.72-5.28); RED CELL DISTRIBUTION WIDTH 15.7 % (11.5-14.0); SEGMENTED NEUTROPHILS % (AUTO) 83.3 % (42-78); TOTAL CELLS COUNTED % (AUTO) 100 %; WHITE BLOOD COUNT 9.2 10^3/uL (4.0-10.5)
[2018-02-10 04:43] LABS: ALANINE AMINOTRANSFERASE 17 U/L (9-52); ALKALINE PHOSPHATASE 91 U/L (38-126); ANION GAP 10 (5-19); ASPARTATE AMINO TRANSFERASE 38 U/L (14-36); BILIRUBIN,DIRECT 0.3 mg/dL (0.0-0.4); BILIRUBIN,TOTAL 0.5 mg/dL (0.2-1.3); BLOOD UREA NITROGEN 17 mg/dL (7-20); CALCIUM 8.5 mg/dL (8.4-10.2); CARBON DIOXIDE 26 mmol/L (22-30); CHLORIDE 103 mmol/L (98-107); GLUCOSE 94 mg/dL (75-110); POTASSIUM 4.1 mmol/L (3.6-5.0); SODIUM 138.5 mmol/L (137-145); TOTAL PROTEIN 6.5 g/dL (6.3-8.2)
[2018-02-10] MEDS: LANSOPRAZOLE 15 MG TAB.RAP.DR PO SCH (05:12)
[2018-02-10] MEDS: ACETAMINOPHEN 325 MG TABLET PO PRN ×4 (08:17→23:25)
[2018-02-10] MEDS: ASPIRIN 81 MG TABLET, CHEWABLE PO SCH (10:04)
[2018-02-10] MEDS: MAGNESIUM OXIDE 400 MG TABLET PO SCH (10:06)
[2018-02-10] MEDS: DILTIAZEM HCL 240 MG CAPSULE.CR PO SCH ×2 (10:06→21:50)
[2018-02-10] MEDS: EZETIMIBE 10 MG TABLET PO SCH (10:07)
[2018-02-10] MEDS: APIXABAN 5 MG TABLET PO SCH ×2 (10:07→21:50)
[2018-02-10] MEDS: GLIMEPIRIDE 4 MG TABLET PO SCH ×2 (10:08→17:25)
[2018-02-10] MEDS: INSULIN LISPRO 100 UNIT/ML 3 ML VIAL SUBCUT PRN (12:41)
--- NOTE | 2018-02-10 12:56 | PDOC PROGRESS REPORT ---
Subjective Progress Note for:: 02/10/18 Subjective:: 77 year old female with a past medical history of ubz-ostqfoh-kvlrdpvbe diabetes mellitus, paroxysmal atrial fibrillation on Eliquis, GERD and history of dermatomyositis who presented with cough, fever and shortness of breath who was admitted with bilateral pneumonia failing two outpatient antibiotics. No acute event overnight. She says that her shortness of breath has remain the same for the past 2 days. She is saturating well on 2 L of nasal cannula at rest. She ambulated again yesterday afternoon and desaturated to 86%. She is not on home O2. No chest pain, no fever chills. 02/08/2018 no acute events overnight. Patient is comfortably in the chair on 2 L oxygen via nasal cannula. Pulse ox is 95-96 on 2 L. 02/09/2018-no acute events in the last 24 hours. Patient is comfortably in the chair on 2 L oxygen. Pulse ox is 95-96% on [address] scan shows that she has pulmonary fibrosis. Waiting for the pulmonary evaluation. She is also on antibiotic therapy for bilateral pneumonia. 02/10/2018-patient is tachycardic today heart rate is 107 be rechecked heart rate again it was 94. Also has a low-grade fever of 99.7. Is on azithromycin 500 mg p.o. daily. She denies any complaints. Reason For Visit: ACUTE HYPOXIC RESPIRATORY FAILURE,PNEUMONIA Physical Exam Vital Signs: Temp Pulse Resp BP Pulse Ox 98.8 F 94 22 H 142/64 H 91 L 02/10/18 12:00 02/10/18 12:00 02/10/18 12:00 02/10/18 12:00 02/10/18 12:00 Intake & Output 02/09/18 02/10/18 02/11/18 06:59 06:59 06:59 Intake Total 2833 2923 Balance 2833 2923 Weight 71.3 kg 71.7 kg General appearance: PRESENT: no acute distress Head exam: PRESENT: atraumatic Eye exam: PRESENT: PERRLA Mouth exam: PRESENT: moist Neck exam: ABSENT: carotid bruit, JVD, lymphadenopathy, thyromegaly Respiratory exam: PRESENT: decreased breath sounds Cardiovascular exam: PRESENT: tachycardia GI/Abdominal exam: PRESENT: normal bowel sounds, soft. ABSENT: distended, gu arding, mass, organolmegaly, rebound, tenderness Neurological exam: PRESENT: alert, awake, oriented to person, oriented to place, oriented to time, oriented to situation, CN II-XII grossly intact. ABSENT: motor sensory deficit Psychiatric exam: PRESENT: appropriate affect, normal mood. ABSENT: homicidal ideation, suicidal ideation Results Laboratory Results: 02/10/18 03:53 02/10/18 03:53 02/10/18 02/10/18 03:53 03:53 WBC 9.2 RBC 4.29 Hgb 11.6 L Hct 35.6 L MCV 83 MCH 27.1 MCHC 32.7 RDW 15.7 H Plt Count 389 Seg Neutrophils % 83.3 H Lymphocytes % 7.9 L Monocytes % 7.1 Eosinophils % 1.0 Basophils % 0.7 Absolute Neutrophils 7.7 Absolute Lymphocytes 0.7 Absolute Monocytes 0.7 Absolute Eosinophils 0.1 Absolute Basophils 0.1 Sodium 138.5 Potassium 4.1 Chloride 103 Carbon Dioxide 26 Anion Gap 10 BUN 17 Creatinine 1.45 H Est GFR ( Amer) 42 L Est GFR (Non-Af Amer) 35 L Glucose 94 Calcium 8.5 Magnesium 1.9 Total Bilirubin 0.5 AST 38 H ALT 17 Alkaline Phosphatase 91 Total Protein 6.5 Albumin 3.0 L 02/02/18 23:20 Sputum Gram Stain - Final 02/02/18 23:20 Sputum Sputum Culture - Final C.albicans/C.dubliniensis Normal Katherine 02/02/18 16:28 Troponin I < 0.012 Impressions: Chest X-Ray 02/05/18 00:00 IMPRESSION: Congestive heart failure with possible alveolar pulmonary edema versus basilar pneumonia. Interstitial changes worrisome for underlying pulmonary fibrosis. Chest CT 02/05/18 17:30 IMPRESSION: 1. There is pulmonary fibrosis in a pattern without clear apical to basal gradient, featuring peripheral interstitial and ground-glass pulmonary opacity and mild tubular bronchiectasis. No significant bronchiolectasis or honeycombing. Findings are in an "inconsistent with UIP" pattern by ATS pulmonary fibrosis criteria. Primary differential consideration is NSIP. 2. Cardiomegaly and coronary artery disease. Assessment & Plan - Diagnosis (1) Acute respiratory failure with hypoxemia Is this a current diagnosis for this admission?: Yes Plan: Improving. Secondary to pneumonia. She is saturating well on 2 L of nasal cannula at rest. Patient has desaturation to the 80s on ambulation. She will need home O2. Chest CT done on 02/05 and showed pulmonary fibrosis and tubular bronchiectases (new diagnoses). Patient and family denies previous diagnoses of both. Will consult pulmonology for further recommendations. Discussed with Dr. Rahman over phone who will see and follow patient. CPT also ordered. 02/08/2018-patient is admitted with acute respiratory failure with hypoxia improving pulse ox is 96% on 2 L. pulmonary consult was requested because CT scan shows pulmonary fibrosis and tubular bronchiectasis. 02/09/2018-acute respiratory failure is high with hypoxia is resolving pulse ox on 2 L is 96%. The plan is to continue to use the BiPAP as needed basis and continued antibiotic therapy for at least another day. 02/10/2018-patient's pulse ox is 94% on 2 L. Using BiPAP as needed basis. Patient is on azithromycin as mentioned above I am going to continue azithromycin for a few days and added Rocephin 1 g IV daily. I placed Order for chest x-ray, Because she has had a low-grade fever of 99.7 and she is tachycardic. (2) Pulmonary fibrosis Is this a current diagnosis for this admission?: Yes Plan: Pulm consult as mentioned in #1. Note patient also has history of ?dermatomyositis. Echo also ordered. Report pending. 02/08/2018. CT scan shows pulmonary fibrosis and patient also history of dermatomyositis. Echocardiogram shows mild left ventricular systolic dysfunction. Stage II-IV mild to moderate diastolic dysfunction. 02/09/2018 patient has recently diagnosed pulmonary fibrosis on CT scan of the chest. Echocardiogram was done on the part of the study. Echocardiogram shows mild left ventricular systolic dysfunction on stage II-IV mild to moderate diastolic dysfunction. 02/10/2018-CT chest shows pulmonary fibrosis. Echocardiogram shows mild left ventricular systolic dysfunction with stage IV/stage II mild to moderate diastolic dysfunction. Waiting for the pulmonary input. (3) Pneumonia Qualifiers: Pneumonia type: due to unspecified organism Laterality: bilateral Lung location: unspecified part of lung Qualified Code(s): J18.9 - Pneumonia, unspecified organism Is this a current diagnosis for this admission?: Yes Plan: Patient denies recent hospitalization. She does have a recent sick contact. Patient has failed outpatient antibiotics particularly Augmentin and doxycycline. Continue broad IV antibiotic coverage for now. Flu testing negative. Discussed with Dr. Rahman over phone who will see and follow patient. CPT also ordered. Continue breathing treatments and mucomyst. 02/08/2018-she failed outpatient antibiotics particularly Augmentin doxycycline. Now she is on azithromycin and Zosyn. Vancomycin was discontinued. Cultures are negative so far. 02/09/2018-patient was treated for community-acquired pneumonia as an outpatient with Augmentin and doxycycline she failed to respond to the therapy here she is getting azithromycin the cultures are negative so far. 02/10/2018 patient was treated for community-acquired pneumonia as an outpatient and she was admitted after failed therapy. Cultures are negative so far. Sp utum culture shows Taisha albicans. I am going to put her on her Diflucan p.o. medication. - Time Time Spent with patient: 15-24 minutes Medications reviewed and adjusted accordingly: Yes
--- NOTE | 2018-02-10 15:31 | RADIOLOGY REPORT (SQ) ---
EXAM DESCRIPTION: CHEST 2 VIEWS COMPLETED DATE/TIME: 02/10/2018 3:14 pm REASON FOR STUDY: fever COMPARISON: 02/05/2018 EXAM PARAMETERS: NUMBER OF VIEWS: two views TECHNIQUE: Digital Frontal and Lateral radiographic views of the chest acquired. RADIATION DOSE: NA LIMITATIONS: none FINDINGS: LUNGS AND PLEURA: Diffuse parenchymal opacities throughout the lungs slightly worse than p revious. MEDIASTINUM AND HILAR STRUCTURES: No masses or contour abnormalities. HEART AND VASCULAR STRUCTURES: Heart enlarged. Vascular congestion. BONES: No acute findings. HARDWARE: None in the chest. OTHER: No other significant finding. IMPRESSION: Congestive heart failure with pulmonary edema plus-minus pneumonia. TECHNICAL DOCUMENTATION: JOB ID: [id number] [employer]- All Rights Reserved Reading location - IP/workstation name: [email or web address]
[2018-02-10] MEDS: FUROSEMIDE 20 MG TABLET PO SCH (17:25)
[2018-02-10] MEDS: CEFTRIAXONE SODIUM 1,000 MG in DEXTROSE 5%-WATER 50 ML IV SCH (17:25)
[2018-02-10] MEDS: FLUCONAZOLE 100 MG TABLET PO SCH (17:58)
[2018-02-10] MEDS: PIOGLITAZONE HCL 30 MG TABLET PO SCH (21:52)
[2018-02-10] MEDS: AZITHROMYCIN 500 MG in DEXTROSE 5%-WATER 250 ML IV SCH (21:54)
[2018-02-11] MEDS: ACETYLCYSTEINE 10% NEB 400 MG/4 ML VIAL NEB SCH ×4 (01:51→20:36)
[2018-02-11] MEDS: ALBUTEROL SULFATE 0.083% NEB 2.5 MG/3 ML AMPUL NEB SCH ×4 (01:51→20:36)
[2018-02-11] MEDS: LANSOPRAZOLE 15 MG TAB.RAP.DR PO SCH (05:29)
[2018-02-11 06:06] LABS: ABSOLUTE EOSINOPHILS # (AUTO) 0.1 10^3/uL (0.0-0.6); ABSOLUTE LYMPHOCYTES (AUTO) 0.7 10^3/uL (0.5-4.7); ABSOLUTE MONOCYTES (AUTO) 0.5 10^3/uL (0.1-1.4); ABSOLUTE NEUT (AUTO) 7.8 10^3/uL (1.7-8.2); BASOPHILS % (AUTO) 0.5 % (0-2); EOSINOPHILS % (AUTO) 1.2 % (0-6); HEMATOCRIT 35.3 % (36.0-47.0); HEMOGLOBIN 11.6 g/dL (12.0-15.5); LYMPHOCYTES % (AUTO) 7.4 % (13-45); MEAN CORPUSCULAR HEMOGLOBIN 27.4 pg (27.0-33.4); MEAN CORPUSCULAR VOLUME 83 fl (80-97); MONOCYTES % (AUTO) 5.9 % (3-13); PLATELET COUNT 470 10^3/uL (150-450); RED BLOOD COUNT 4.25 10^6/uL (3.72-5.28); RED CELL DISTRIBUTION WIDTH 15.8 % (11.5-14.0); TOTAL CELLS COUNTED % (AUTO) 100 %; WHITE BLOOD COUNT 9.2 10^3/uL (4.0-10.5)
[2018-02-11 06:41] LABS: ERYTHROCYTE SEDIMENTATION RATE 67 mm/hr (0-30)
[2018-02-11] MEDS: ACETAMINOPHEN 325 MG TABLET PO PRN ×3 (06:57→21:44)
[2018-02-11 06:58] LABS: ALANINE AMINOTRANSFERASE 12 U/L (9-52); ALBUMIN 2.8 g/dL (3.5-5.0); ALKALINE PHOSPHATASE 96 U/L (38-126); ANION GAP 8 (5-19); ASPARTATE AMINO TRANSFERASE 38 U/L (14-36); BILIRUBIN,DIRECT 0.3 mg/dL (0.0-0.4); BILIRUBIN,TOTAL 0.4 mg/dL (0.2-1.3); BLOOD UREA NITROGEN 17 mg/dL (7-20); C-REACTIVE PROTEIN 68.3 mg/L (<10.0); CALCIUM 8.4 mg/dL (8.4-10.2); CARBON DIOXIDE 28 mmol/L (22-30); CHLORIDE 102 mmol/L (98-107); GLUCOSE 75 mg/dL (75-110); POTASSIUM 3.9 mmol/L (3.6-5.0); SODIUM 137.8 mmol/L (137-145); TOTAL PROTEIN 6.4 g/dL (6.3-8.2)
[2018-02-11] MEDS: GLIMEPIRIDE 4 MG TABLET PO SCH ×2 (08:09→16:01)
--- NOTE | 2018-02-11 08:42 | CONSULTATION REPORT E ---
Consultation Report NAME: CHENTE CHILDS : 1940 AGE: 77Y DATE: 02/10/2018 ROOM: 527 A TO: TOMY ARELLANO M.D. FROM: JASS SHABAZZ M.D. Requesting Physician HISTORY OF PRESENT ILLNESS: The patient is a 77-year-old female who came in with increased shortness of breath, admitted and treated for upper respiratory infection, presented with nasal congestion and nonproductive cough. There was no documented fever since the admission and no documented leukocytosis since admission. The patient claimed that she was coughing brownish sputum occasionally. 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 Basically in the chart she has atrial fibrillation and on Eliquis. No nausea, vomiting, or chest pain. No abdominal pain. The rapid influenza A and B were negative on this admission. PAST MEDICAL HISTORY: History of atrial fibrillation. Denies bronchial asthma. No history of seizures. Has history of diabetes mellitus type 2 and hiatal hernia. PAST SURGICAL HISTORY: Tonsillectomy. Denies any pacemaker or mastectomy or amputation. SOCIAL HISTORY: Smokes about 1 to 2 packs per day for about 25 years and quit more than 20 years ago. Denies any alcohol abuse or recreational drugs use. FAMILY HISTORY: Not remarkable. MEDICATIONS: Home medications include albuterol inhaler, Eliquis, Invokana, Cardizem, Zetia, Amaryl, DuoNeb nebulizer treatment, metformin, omeprazole, Actos, and Pravachol. ALLERGIES: LEVAQUIN. REVIEW OF SYSTEMS: CONSTITUTIONAL: No fever or chills. EYES: No jaundice or pallor. EARS, NOSE, AND THROAT: Positive nasal congestion present this admission. No sore throat. No headache. RESPIRATORY: Complains of increasing shortness of breath over the last 3 to 4 months. Denies any hemoptysis or purulent production. No chest pain. CARDIAC: No history of angina. Has history of atrial fibrillation and on Eliquis. GASTROINTESTINAL: No nausea, vomiting, or diarrhea. GENITOURINARY: No dysuria or hematuria. EXTREMITIES: No bipedal edema. PHYSICAL EXAMINATION: GENERAL: The patient is awake, alert, coherent, oriented x3. VITAL SIGNS: Temperature is 98.9 with a T-max of 98.9, and there is no fever spike since admission. Pulse rate is 82, blood pressure is now 137/81, and respirations are 22. O2 saturation is 94% on 3 L nasal cannula. EYES: No jaundice or pallor. EARS, NOSE, AND THROAT: No ear drainage noted. No nasal discharge. CHEST/LUNGS: No wheezing, no rhonchi, no coarse crackles. CARDIOVASCULAR: S1, S2 distinct. Normal rate, regular rhythm. ABDOMEN: Flabby. Positive bowel sounds. Soft, nondistended, nontender. EXTREMITIES: No joint swelling. No cellulitis. DIAGNOSTICS: CBC done today showed a white count of 9.2, the hemoglobin is 11.6, hematocrit is 35.6, and platelet count is 389; no bandemia noted. Chemistry was not done today. Last chemistry from 02/02/2018 showed sodium is 136, potassium is 4.2, chloride 101, CO2 is 25, BUN is 12, creatinine is 0.5, glucose 65, SGOT is 45, SGPT is 22, alkaline phosphatase 95, total protein 7, albumin is 3.6. Chest CT scan done on 02/05/2018 showed opacities bilaterally peripherally with no obvious evidence of bronchiectasis or honeycombing with findings suggestive of nonspecific interstitial pneumonitis. Pulmonary edema could not be completely excluded from this chest CT scan finding on 02/05/2018. ASSESSMENT: 1. Interstitial lung disease plus/minus pulmonary congestion/pulmonary edema. 2. History of dermatomyositis. No known labs establishing the dermatomyositis diagnosis. 3. History of atrial fibrillation, managed and followed by Cardiology. 4. Bronchial asthma possible. 5. History of smoking. PLAN/RECOMMENDATIONS: 1. We will perform spirometry pre and post bronchodilator tomorrow morning. 2. We will send CBC, chemistry, ESR, CRP, and NT-BNP. We will send for rheumatoid factor determination, antinuclear antibody determination, and other connective tissue workup. 3. Pulmonary Clinic followup in 2 weeks following hospital discharge if discharged tomorrow. 4. Recommend to optimize CHF therapy. DICTATING PHYSICIAN: TOMY ARELLANO MD,DESI,MPH [id number] PHY#: [id number] ID: [id number] JOB#: [id number] ACCT: [id number] cc:TOMY ARELLANO M.D. > [facility]
[2018-02-11] MEDS: APIXABAN 5 MG TABLET PO SCH ×2 (09:43→21:44)
[2018-02-11] MEDS: DILTIAZEM HCL 240 MG CAPSULE.CR PO SCH ×2 (09:44→21:44)
[2018-02-11] MEDS: FUROSEMIDE 20 MG TABLET PO SCH (09:44)
[2018-02-11] MEDS: MAGNESIUM OXIDE 400 MG TABLET PO SCH (09:44)
[2018-02-11] MEDS: ASPIRIN 81 MG TABLET, CHEWABLE PO SCH (09:44)
[2018-02-11] MEDS: EZETIMIBE 10 MG TABLET PO SCH (09:44)
[2018-02-11] MEDS ORDERED: CEFTRIAXONE 1 GM/D5W RTU 1 GM/50 ML RTUPB IV SCH (10:00)
[2018-02-11] MEDS ORDERED: AZITHROMYCIN INJ 500 MG VIAL IV SCH (10:00)
[2018-02-11] MEDS ORDERED: ALBUTEROL SULFATE 0.042% NEB (1.25 MG/3 ML) AMPUL NEB ONE (10:15)
[2018-02-11] MEDS: INSULIN LISPRO 100 UNIT/ML 3 ML VIAL SUBCUT PRN (11:52)
--- NOTE | 2018-02-11 14:56 | PDOC PROGRESS REPORT ---
Subjective Progress Note for:: 02/11/18 Subjective:: 77 year old female with a past medical history of bzi-orvsyyi-yozmejcee diabetes mellitus, paroxysmal atrial fibrillation on Eliquis, GERD and history of dermatomyositis who presented with cough, fever and shortness of breath who was admitted with bilateral pneumonia failing two outpatient antibiotics. No acute event overnight. She says that her shortness of breath has remain the same for the past 2 days. She is saturating well on 2 L of nasal cannula at rest. She ambulated again yesterday afternoon and desaturated to 86%. She is not on home O2. No chest pain, no fever chills. 02/08/2018 no acute events overnight. Patient is comfortably in the chair on 2 L oxygen via nasal cannula. Pulse ox is 95-96 on 2 L. 02/09/2018-no acute events in the last 24 hours. Patient is comfortably in the chair on 2 L oxygen. Pulse ox is 95-96% on [address] scan shows that she has pulmonary fibrosis. Waiting for the pulmonary evaluation. She is also on antibiotic therapy for bilateral pneumonia. 02/10/2018-patient is tachycardic today heart rate is 107 be rechecked heart rate again it was 94. Also has a low-grade fever of 99.7. Is on azithromycin 500 mg p.o. daily. She denies any complaints. 02/11/2018-patient is afebrile temperature is 98.6 today but patient still tachycardic and shortness of breath. Reason For Visit: ACUTE HYPOXIC RESPIRATORY FAILURE,PNEUMONIA Physical Exam Vital Signs: Temp Pulse Resp BP Pulse Ox 98.6 F 90 20 123/63 91 L 02/11/18 11:21 02/11/18 13:59 02/11/18 13:59 02/11/18 11:21 02/11/18 13:59 Intake & Output 02/10/18 02/11/18 02/12/18 06:59 06:59 06:59 Intake Total 2923 1590 Balance 2923 1590 Weight 71.7 kg 71 kg General appearance: PRESENT: mild distress Head exam: PRESENT: atraumatic Eye exam: PRESENT: PERRLA Mouth exam: PRESENT: moist Neck exam: PRESENT: JVD Respiratory exam: PRESENT: crackles, decreased breath sounds, wheezes Cardiovascular exam: PRESENT: tachycardia GI/Abdominal exam: PRESENT: normal bowel sounds, soft. ABSENT: distended, guarding, mass, organolmegaly, rebound, tenderness Neurological exam: PRESENT: alert, awake, oriented to person, oriented to place, oriented to time, oriented to situation, CN II-XII grossly intact. ABSENT: motor sensory deficit Psychiatric exam: PRESENT: appropriate affect, normal mood. ABSENT: homicidal ideation, suicidal ideation Results Laboratory Results: 02/11/18 05:10 02/11/18 05:10 02/11/18 02/11/18 05:10 05:10 WBC 9.2 RBC 4.25 Hgb 11.6 L Hct 35.3 L MCV 83 MCH 27.4 MCHC 33.0 RDW 15.8 H Plt Count 470 H Seg Neutrophils % 85.0 H Lymphocytes % 7.4 L Monocytes % 5.9 Eosinophils % 1.2 Basophils % 0.5 Absolute Neutrophils 7.8 Absolute Lymphocytes 0.7 Absolute Monocytes 0.5 Absolute Eosinophils 0.1 Absolute Basophils 0.0 Sodium 137.8 Potassium 3.9 Chloride 102 Carbon Dioxide 28 Anion Gap 8 BUN 17 Creatinine 1.24 Est GFR ( Amer) 51 L Est GFR (Non-Af Amer) 42 L Glucose 75 Calcium 8.4 Magnesium 1.8 Total Bilirubin 0.4 AST 38 H ALT 12 Alkaline Phosphatase 96 C-Reactive Protein 68.3 H Total Protein 6.4 Albumin 2.8 L 02/02/18 02/11/18 16:28 05:10 Troponin I < 0.012 NT-Pro-B Natriuret Pep 3470 H Impressions: Chest CT 02/05/18 17:30 IMPRESSION: 1. There is pulmonary fibrosis in a pattern without clear apical to basal gradient, featuring peripheral interstitial and ground-glass pulmonary opacity and mild tubular bronchiectasis. No significant bronchiolectasis or honeycombing. Findings are in an "inconsistent with UIP" pattern by ATS pulmonary fibrosis criteria. Primary differential consideration is NSIP. 2. Cardiomegaly and coronary artery disease. Chest X-Ray 02/10/18 00:00 IMPRESSION: Congestive heart failure with pulmonary edema plus-minus pneumonia. Assessment & Plan - Diagnosis (1) Acute respiratory failure with hypoxemia Is this a current diagnosis for this admission?: Yes Plan: Improving. Secondary to pneumonia. She is saturating well on 2 L of nasal cannula at rest. Patient has desaturation to the 80s on ambulation. She will need home O2. Chest CT done on 02/05 and showed pulmonary fibrosis and tubular bronchiectases (new diagnoses). Patient and family denies previous diagnoses of both. Will consult pulmonology for further recommendations. Discussed with Dr. Rahman over phone who will see and follow patient. CPT also ordered. 02/08/2018-patient is admitted with acute respiratory failure with hypoxia improving pulse ox is 96% on 2 L. pulmonary consult was requested because CT scan shows pulmonary fibrosis and tubular bronchiectasis. 02/09/2018-acute respiratory failure is high with hypoxia is resolving pulse ox on 2 L is 96%. The plan is to continue to use the BiPAP as needed basis and continued antibiotic therapy for at least another day. 02/10/2018-patient's pulse ox is 94% on 2 L. Using BiPAP as needed basis. Patient is on azithromycin as mentioned above I am going to continue azithromycin for a few days and added Rocephin 1 g IV daily. I placed Order for chest x-ray, Because she has had a low-grade fever of 99.7 and she is tachycardic. 02/11/2018-patient's pulse ox is 90% on 4 L oxygen. Using BiPAP on as needed basis. Patient is on IV Rocephin 1 g daily Zithromax 500 mg IV daily she is also on Diflucan for Taisha. (2) Pulmonary fibrosis Is this a current diagnosis for this admission?: Yes Plan: Pulm consult as mentioned in #1. Note patient also has history of ?dermatomyositis. Echo also ordered. Report pending. 02/08/2018. CT scan shows pulmonary fibrosis and patient also history of dermatomyositis. Echocardiogram shows mild left ventricular systolic dysfunction. Stage II-IV mild to moderate diastolic dysfunction. 02/09/2018 patient has recently diagnosed pulmonary fibrosis on CT scan of the chest. Echocardiogram was done on the part of the study. Echocardiogram shows mild left ventricular systolic dysfunction on stage II-IV mild to moderate diastolic dysfunction. 02/10/2018-CT chest shows pulmonary fibrosis. Echocardiogram shows mild left ventricular systolic dysfunction with stage IV/stage II mild to moderate diastolic dysfunction. Waiting for the pulmonary input. The neurologist is planning to arrange for spirometry pre-and postbronchodilator therapy tomorrow. (3) Pneumonia Qualifiers: Pneumonia type: due to unspecified organism Laterality: bilateral Lung location: unspecified part of lung Qualified Code(s): J18.9 - Pneumonia, unspecified organism Is this a current diagnosis for this admission?: Yes Plan: Patient denies recent hospitalization. She does have a recent sick contact. Patient has failed outpatient antibiotics particularly Augmentin and doxycycline. Continue broad IV antibiotic coverage for now. Flu testing negative. Discussed with Dr. Rahman over phone who will see and follow patient. CPT also ordered. Continue breathing treatments and mucomyst. 02/08/2018-she failed outpatient antibiotics particularly Augmentin doxycycline. Now she is on azithromycin and Zosyn. Vancomycin was discontinued. Cultures are negative so far. 02/09/2018-patient was treated for community-acquired pneumonia as an outpatient with Augmentin and doxycycline she failed to respond to the therapy here she is getting azithromycin the cultures are negative so far. 02/10/2018 patient was treated for community-acquired pneumonia as an outpatient and she was admitted after failed therapy. Cultures are negative so far. Sputum culture shows Taisha albicans. I am going to put her on her Diflucan p.o. medication. 02/11/2018-patient is on IV Rocephin 1 g daily Zithromax 500 mg IV daily and she started on Diflucan yesterday. (4) CHF (congestive heart failure) Qualifiers: Heart failure chronicity: chronic Is this a current diagnosis for this admission?: Yes Plan: 02/11/2018-recent echocardiogram shows low normal left ventricular ejection fraction. Grade 2/grade 4 mild to moderatediastolic dysfunction. Chest x-ray done on 02/10/2018 shows pulmonary edema. Patient is on Lasix 20 mg p.o. twice daily I increased it to 40 twice a day. - Time Time Spent with patient: 15-24 minutes Medications reviewed and adjusted accordingly: Yes Anticipated discharge: Home
[2018-02-11] MEDS ORDERED: FUROSEMIDE INJ/PF 40 MG/4 ML SDV ONE (15:54)
[2018-02-11] MEDS ORDERED: FUROSEMIDE INJ/PF 40 MG/4 ML SDV IV ONE (16:00)
--- NOTE | 2018-02-11 16:05 | Progress Note ---
Provider Note Provider Note: ID Consult Note Asked to review patient's chart by Pharmacy. Pt not seen or examined. Reviewed patient's chart including imaging reports, CT scan images, provider reports, labs, VS. Pt is a 77 year old woman with PMH/PSH including GERD, dermatomyositis, AF and DM who presented to ED on 02/02/18 with c/o productive cough, subjective fever, and SOB. She reported having some URI sx (nasal congestion, dry cough) >1 week prior to admission. Her cough then became productive. She was seen as an outpatient, diagnosed with pneumonia, and prescribed Augmentin and doxycycline, which she started taking about 4-5 days [employer], but she had persistent sx. On presentation she had tachypnea and hypoxia requiring supplemental O2 3L via NC, no fever, irregularly irregular HR in the ED, and on admission crackles from base to midlung ross b/l with some rhonchi, no wheezes. WBC wnl. CXR was read as showing diffusely patchy abnormal air space density b/l with ddx of pulmonary edema vs pneumonia. BCx negative. Sputum cx on 02/02 grew normal dee and C albicans. Rapid influenza test was negative. WBC count was normal. CT chest was performed on 02/05/18 that was read as showing pulmonary fibrosis. TTE on 02/06 was read as showing mild concentric LVH and mild-moderate diastolic dysfunction. She has been empirically treated for bacterial pneumonia with broad spectrum antibiotic therapy aimed at atypicals as well as common causes of community acquired pneumonia and also more resistant nosocomial pathogens. Antimicrobials: azithromycin 500 mg from 02/03-present 02/11 Rocephin 1 dose 02/02, 02/10-present 02/11 Doxycycline 1 dose 02/02 Zosyn 02/02-02/09 vancomycin 02/03-02/07 Fluconazole 100 mg daily 02/10 to present 02/11 Pt has remained afebrile with normal WBC count but hypoxic, still requiring supplemental oxygen. Impression/Recommendations Pt has completed empiric course of broad spectrum antimicrobial therapy for community acquired pneumonia / hospital acquired pneumonia, including activity against more resistant GNRs and MRSA until sputum culture was finalized, which only reflected normal respiratory dee and Taisha albicans/dublinensis. The CT scan of the patient's lungs did not reveal an a pattern of involvement typical for bacterial pneumonia. Pt also has normal WBC count, no fever, and no bacteremia. There is not likely to be any additional benefit derived from continuing fluconazole, Rocephin and azithromycin. Taisha in sputum culture in this patient is a contaminant/colonizer that does not require Diflucan. Taisha is frequently isolated from the respiratory tract and usually reflects airway colonization. Taisha is quite rare as a cause of pneumonia, usually as a result of hematogenous dissemination in the setting of profoundly immunosuppressed states. Recommend discontinuing azithromycin, Rocephin and Diflucan. Cecilio Pop MD [facility] Infectious Diseases pager [phone]
[2018-02-11] MEDS ORDERED: FUROSEMIDE 40 MG TABLET PO SCH (18:00)
[2018-02-11] MEDS: FLUCONAZOLE 100 MG TABLET PO SCH (18:35)
[2018-02-11] MEDS: CEFTRIAXONE SODIUM 1,000 MG in DEXTROSE 5%-WATER 50 ML IV SCH (18:35)
[2018-02-11] MEDS: GLYCERIN/WITCH HAZEL LEAF 1 EACH MED..PAD TP PRN (21:43)
[2018-02-11] MEDS: AZITHROMYCIN 500 MG in DEXTROSE 5%-WATER 250 ML IV SCH (21:45)
[2018-02-11] MEDS: PIOGLITAZONE HCL 30 MG TABLET PO SCH (21:46)
[2018-02-11] MEDS: FUROSEMIDE 40 MG TABLET PO SCH (21:47)
[2018-02-11] MEDS: FLUTICASONE/SALMETEROL DISKUS 250-50 MCG/DOSE IH SCH (21:54)
[2018-02-12] MEDS: ACETYLCYSTEINE 10% NEB 400 MG/4 ML VIAL NEB SCH ×4 (02:24→19:30)
[2018-02-12] MEDS: ALBUTEROL SULFATE 0.083% NEB 2.5 MG/3 ML AMPUL NEB SCH ×4 (02:24→19:30)
[2018-02-12] MEDS: ACETAMINOPHEN 325 MG TABLET PO PRN ×3 (05:27→20:03)
[2018-02-12] MEDS: LANSOPRAZOLE 15 MG TAB.RAP.DR PO SCH (05:28)
[2018-02-12] MEDS: GLIMEPIRIDE 4 MG TABLET PO SCH ×2 (08:05→17:20)
[2018-02-12] MEDS: MAGNESIUM OXIDE 400 MG TABLET PO SCH (10:24)
[2018-02-12] MEDS: FUROSEMIDE 40 MG TABLET PO SCH ×2 (10:25→17:19)
[2018-02-12] MEDS: APIXABAN 5 MG TABLET PO SCH ×2 (10:25→21:12)
[2018-02-12] MEDS: DILTIAZEM HCL 240 MG CAPSULE.CR PO SCH ×2 (10:25→21:12)
[2018-02-12] MEDS: EZETIMIBE 10 MG TABLET PO SCH (10:25)
[2018-02-12] MEDS: ASPIRIN 81 MG TABLET, CHEWABLE PO SCH (10:25)
[2018-02-12] MEDS: FLUTICASONE/SALMETEROL DISKUS 250-50 MCG/DOSE IH SCH ×2 (10:26→21:12)
[2018-02-12] MEDS: GLYCERIN/WITCH HAZEL LEAF 1 EACH MED..PAD TP PRN (11:06)
--- NOTE | 2018-02-12 13:40 | PDOC PROGRESS REPORT ---
Subjective Progress Note for:: 02/12/18 Subjective:: 77 year old female with a past medical history of mqy-luwtpfq-mxbopiwas diabetes mellitus, paroxysmal atrial fibrillation on Eliquis, GERD and history of dermatomyositis who presented with cough, fever and shortness of breath who was admitted with bilateral pneumonia failing two outpatient antibiotics. No acute event overnight. She says that her shortness of breath has remain the same for the past 2 days. She is saturating well on 2 L of nasal cannula at rest. She ambulated again yesterday afternoon and desaturated to 86%. She is not on home O2. No chest pain, no fever chills. 02/08/2018 no acute events overnight. Patient is comfortably in the chair on 2 L oxygen via nasal cannula. Pulse ox is 95-96 on 2 L. 02/09/2018-no acute events in the last 24 hours. Patient is comfortably in the chair on 2 L oxygen. Pulse ox is 95-96% on [address] scan shows that she has pulmonary fibrosis. Waiting for the pulmonary evaluation. She is also on antibiotic therapy for bilateral pneumonia. 02/10/2018-patient is tachycardic today heart rate is 107 be rechecked heart rate again it was 94. Also has a low-grade fever of 99.7. Is on azithromycin 500 mg p.o. daily. She denies any complaints. 02/11/2018-patient is afebrile temperature is 98.6 today but patient still tachycardic and shortness of breath. 02/12/2018-no acute events in the last 24 hours. Patient's T-max is 99.2. The recommendations from the infectious disease specialist Dr. Pop is to stop the antibiotics. I am going to implement her recommendations. Patient denies any complaints. Reason For Visit: ACUTE HYPOXIC RESPIRATORY FAILURE,PNEUMONIA Physical Exam Vital Signs: Temp Pulse Resp BP Pulse Ox 99.2 F 85 24 H 117/69 90 L 02/12/18 11:53 02/12/18 11:53 02/12/18 11:53 02/12/18 11:53 02/12/18 11:53 Intake & Output 02/11/18 02/12/18 02/13/18 06:59 06:59 06:59 Intake Total 1590 1650 Balance 1590 1650 Weight 71 kg 70.9 kg General appearance: PRESENT: no acute distress Eye exam: PRESENT: PERRLA Mouth exam: PRESENT: moist Neck exam: ABSENT: carotid bruit, JVD, lymphadenopathy, thyromegaly Respiratory exam: PRESENT: crackles, decreased breath sounds Cardiovascular exam: PRESENT: tachycardia GI/Abdominal exam: PRESENT: normal bowel sounds, soft. ABSENT: distended, guarding, mass, organolmegaly, rebound, tenderness Neurological exam: PRESENT: alert, awake, oriented to person, oriented to place, oriented to time, oriented to situation, CN II-XII grossly intact. ABSENT: motor sensory deficit Psychiatric exam: PRESENT: appropriate affect, normal mood. ABSENT: homicidal ideation, suicidal ideation Results Laboratory Results: 02/11/18 05:10 02/11/18 05:10 02/02/18 02/11/18 16:28 05:10 Troponin I < 0.012 NT-Pro-B Natriuret Pep 3470 H Impressions: Chest CT 02/05/18 17:30 IMPRESSION: 1. There is pulmonary fibrosis in a pattern without clear apical to basal gradient, featuring peripheral interstitial and ground-glass pulmonary opacity and mild tubular bronchiectasis. No significant bronchiolectasis or honeycombing. Findings are in an "inconsistent with UIP" pattern by ATS pulmonary fibrosis criteria. Primary differential consideration is NSIP. 2. Cardiomegaly and coronary artery disease. Chest X-Ray 02/10/18 00:00 IMPRESSION: Congestive heart failure with pulmonary edema plus-minus pneumonia. Assessment & Plan - Diagnosis (1) Acute respiratory failure with hypoxemia Is this a current diagnosis for this admission?: Yes Plan: Improving. Secondary to pneumonia. She is saturating well on 2 L of nasal cannula at rest. Patient has desaturation to the 80s on ambulation. She will need home O2. Chest CT done on 02/05 and showed pulmonary fibrosis and tubular bronchiectases (new diagnoses). Patient and family denies previous diagnoses of both. Will consult pulmonology for further recommendations. Discussed with Dr. Rahman over phone who will see and follow patient. CPT also ordered. 02/08/2018-patient is admitted with acute respiratory failure with hypoxia improving pulse ox is 96% on 2 L. pulmonary consult was requested because CT scan shows pulmonary fibrosis and tubular bronchiectasis. 02/09/2018-acute respiratory failure is high with hypoxia is resolving pulse ox on 2 L is 96%. The plan is to continue to use the BiPAP as needed basis and continued antibiotic therapy for at least another day. 02/10/2018-patient's pulse ox is 94% on 2 L. Using BiPAP as needed basis. Patient is on azithromycin as mentioned above I am going to continue azithromycin for a few days and added Rocephin 1 g IV daily. I placed Order for chest x-ray, Because she has had a low-grade fever of 99.7 and she is tachycardic. 02/11/2018-patient's pulse ox is 90% on 4 L oxygen. Using BiPAP on as needed basis. Patient is on IV Rocephin 1 g daily Zithromax 500 mg IV daily she is also on Diflucan for Taisha. 02/12/2018-pulse ox on 6 L is 90%. Patient is using BiPAP on a as needed basis. We are stopping the antibiotics as per the recommendations by ID. We will continue the nebulizations. (2) Pulmonary fibrosis Is this a current diagnosis for this admission?: Yes Plan: Pulm consult as mentioned in #1. Note patient also has history of ?dermatomyositis. Echo also ordered. Report pending. 02/08/2018. CT scan shows pulmonary fibrosis and patient also history of derm atomyositis. Echocardiogram shows mild left ventricular systolic dysfunction. Stage II-IV mild to moderate diastolic dysfunction. 02/09/2018 patient has recently diagnosed pulmonary fibrosis on CT scan of the chest. Echocardiogram was done on the part of the study. Echocardiogram shows mild left ventricular systolic dysfunction on stage II-IV mild to moderate diastolic dysfunction. 02/10/2018-CT chest shows pulmonary fibrosis. Echocardiogram shows mild left ventricular systolic dysfunction with stage IV/stage II mild to moderate diastolic dysfunction. Waiting for the pulmonary input. The neurologist is planning to arrange for spirometry pre-and postbronchodilator therapy tomorrow. 02/12/2018-seen by the needle punch operator Dr. Rogers he is going to see the patient as an outpatient. (3) Pneumonia Qualifiers: Pneumonia type: due to unspecified organism Laterality: bilateral Lung location: unspecified part of lung Qualified Code(s): J18.9 - Pneumonia, unspecified organism Is this a current diagnosis for this admission?: Yes Plan: Patient denies recent hospitalization. She does have a recent sick contact. Patient has failed outpatient antibiotics particularly Augmentin and doxycycline. Continue broad IV antibiotic coverage for now. Flu testing negative. Discussed with Dr. Rahman over phone who will see and follow patient. CPT also ordered. Continue breathing treatments and mucomyst. 02/08/2018-she failed outpatient antibiotics particularly Augmentin doxycycline. Now she is on azithromycin and Zosyn. Vancomycin was discontinued. Cultures are negative so far. 02/09/2018-patient was treated for community-acquired pneumonia as an outpatient with Augmentin and doxycycline she failed to respond to the therapy here she is getting azithromycin the cultures are negative so far. 02/10/2018 patient was treated for community-acquired pneumonia as an outpatient and she was admitted after failed therapy. Cultures are negative so far. Sputum culture shows Taisha albicans. I am going to put her on her Diflucan p.o. medication. 02/11/2018-patient is on IV Rocephin 1 g daily Zithromax 500 mg IV daily and she started on Diflucan yesterday. 02/12/2018-patient was treated with community-acquired pneumonia she was received multiple antibiotics in the last few weeks. As per the ID recommendations I am going to discontinue the antibiotics and also Diflucan. (4) CHF (congestive heart failure) Qualifiers: Heart failure chronicity: chronic Is this a current diagnosis for this admission?: Yes Plan: 02/11/2018-recent echocardiogram shows low normal left ventricular ejection fraction. Grade 2/grade 4 mild to moderatediastolic dysfunction. Chest x-ray done on 02/10/2018 shows pulmonary edema. Patient is on Lasix 20 mg p.o. twice daily I increased it to 40 twice a day. 02/12/2018-patient's chest x-ray shows pulmonary edema started on Lasix 20 twice daily and which was increased to 40 mg p.o. twice daily. On examination of the chest still crackles at the both lung bases. BNP is 3470. As per the echocardiogram left ventricular ejection fraction is normal patient had a grade 2/grade 4 mild to moderate diastolic dysfunction. - Time Time Spent with patient: 15-24 minutes Medications reviewed and adjusted accordingly: Yes Anticipated discharge: Home
--- NOTE | 2018-02-12 16:43 | PROGRESS NOTE E ---
Progress Note NAME: CHENTE CHILDS : 1940 AGE: 77Y DATE: 02/12/2018 ROOM: 527 SUBJECTIVE: The patient is a 77-year-old female who came in with severe respiratory distress and pulmonary infiltrates bilaterally and diffusely. Currently treated for pulmonary edema and interstitial lung disease, COPD/bronchial asthma. Patient currently feeling better. Received several doses of Lasix 40 mg b.i.d. for the last 2-3 days. Coughed up yellow-green, blood thin sputum last night. No fever, no nausea or vomiting. No chest pain. Started on Spiriva inhaler yesterday and tolerated it well. OBJECTIVE: GENERAL: The patient is awake, alert, oriented x3. VITAL SIGNS: Temperature 99.1 with a T-max 98.9 with a heart rate of 87, blood pressure 118/77, respiratory of 19, saturations 92% on 6 liters nasal cannula oxygen. HEENT: Eyes: No conjunctival pallor. Ears/nose/throat: No ear drainage or nasal discharge. CHEST/LUNGS: No wheezing. No rhonchi noted. Fine rales bibasilarly. CARDIAC: S1, S2 distant. Regular rate. Regular rhythm. ABDOMEN: Flabby. Positive bowel sounds. Soft, nondistended, nontender. EXTREMITIES: No joint swelling or cellulitis. No edema. LABORATORY: No new CBC or chemistry done today. Sputum culture was sent out yesterday. ASSESSMENT: 1. INTERSTITIAL LUNG DISEASE, POSSIBLE PULMONARY EDEMA. 2. COPD/BRONCHIAL ASTHMA. CURRENTLY STABLE. NOT IN ACUTE EXACERBATION. 3. ACUTE RESPIRATORY FAILURE. PLAN: 1. Optimize CHF therapy. 2. Continue advair 250 mcg diskhaler one puff BID daily. 3. Titrate oxygen therapy to keep saturation 91-94%. May send patient home on home oxygen therapy after home oxygen therapy evaluation by respiratory therapy at rest and during exercise. 4. Recommend pulmonary followup in 2-3 weeks upon hospital discharge. DICTATING PHYSICIAN: TOMY ARELLANO MD,DESI,MPH 3M [id number] PHY#: [id number] ID: [id number] JOB#: [id number] ACCT: [id number] cc: > MTDD
[2018-02-12] MEDS: PIOGLITAZONE HCL 30 MG TABLET PO SCH (21:08)
[2018-02-13] MEDS: ALBUTEROL SULFATE 0.083% NEB 2.5 MG/3 ML AMPUL NEB SCH ×4 (02:13→19:47)
[2018-02-13] MEDS: ACETYLCYSTEINE 10% NEB 400 MG/4 ML VIAL NEB SCH ×2 (02:14→08:19)
[2018-02-13] MEDS: LANSOPRAZOLE 15 MG TAB.RAP.DR PO SCH (05:25)
[2018-02-13] MEDS: ACETAMINOPHEN 325 MG TABLET PO PRN ×2 (05:45→20:31)
[2018-02-13 06:11] LABS: ANTINUCLEAR ANTIBODIES Negative (Negative)
[2018-02-13] MEDS: DILTIAZEM HCL 240 MG CAPSULE.CR PO SCH ×2 (09:07→21:59)
[2018-02-13] MEDS: FUROSEMIDE 40 MG TABLET PO SCH ×2 (09:07→18:15)
[2018-02-13] MEDS: EZETIMIBE 10 MG TABLET PO SCH (09:07)
[2018-02-13] MEDS: ASPIRIN 81 MG TABLET, CHEWABLE PO SCH (09:07)
[2018-02-13] MEDS: MAGNESIUM OXIDE 400 MG TABLET PO SCH (09:07)
[2018-02-13] MEDS: APIXABAN 5 MG TABLET PO SCH ×2 (09:08→21:58)
[2018-02-13] MEDS: GLIMEPIRIDE 4 MG TABLET PO SCH ×2 (09:08→16:42)
[2018-02-13] MEDS: FLUTICASONE/SALMETEROL DISKUS 250-50 MCG/DOSE IH SCH ×2 (09:08→23:41)
[2018-02-13] MEDS ORDERED: ACETYLCYSTEINE 20% SOLN 800 MG/4 ML VIAL.NEB NEB SCH (10:00)
--- NOTE | 2018-02-13 13:47 | PDOC PROGRESS REPORT ---
Subjective Progress Note for:: 02/13/18 Subjective:: 77 year old female with a past medical history of iyb-dvnlrsp-iiynisowt diabetes mellitus, paroxysmal atrial fibrillation on Eliquis, GERD and history of dermatomyositis who presented with cough, fever and shortness of breath who was admitted with bilateral pneumonia failing two outpatient antibiotics. No acute event overnight. She says that her shortness of breath has remain the same for the past 2 days. She is saturating well on 2 L of nasal cannula at rest. She ambulated again yesterday afternoon and desaturated to 86%. She is not on home O2. No chest pain, no fever chills. 02/08/2018 no acute events overnight. Patient is comfortably in the chair on 2 L oxygen via nasal cannula. Pulse ox is 95-96 on 2 L. 02/09/2018-no acute events in the last 24 hours. Patient is comfortably in the chair on 2 L oxygen. Pulse ox is 95-96% on [address] scan shows that she has pulmonary fibrosis. Waiting for the pulmonary evaluation. She is also on antibiotic therapy for bilateral pneumonia. 02/10/2018-patient is tachycardic today heart rate is 107 be rechecked heart rate again it was 94. Also has a low-grade fever of 99.7. Is on azithromycin 500 mg p.o. daily. She denies any complaints. 02/11/2018-patient is afebrile temperature is 98.6 today but patient still tachycardic and shortness of breath. 02/12/2018-no acute events in the last 24 hours. Patient's T-max is 99.2. The recommendations from the infectious disease specialist Dr. Pop is to stop the antibiotics. I am going to implement her recommendations. Patient denies any complaints. 02/13/2018-patient's pulse ox's are 88% on 6 L nasal cannula. She was placed on BiPAP. With 8 L of oxygen on nonrebreather patient is saturating around 91%. Patient condition is little bit concerning to me on examination chest bilateral entry was decreased crackles and crepitations are present it may be secondary to pulmonary fibrosis versus pulmonary congestion secondary to congestive heart failure I discussed the care with the patient and his daughter and explained to them I need to transfer the patient to [facility] for closer watch and I discussed about her CODE STATUS at this present patient want everything to be done that means she is a full code. We are going to get in touch with the pulmonology Dr. Marks again for further recommendations. I am going to request for a stat ABG. Reason For Visit: ACUTE HYPOXIC RESPIRATORY FAILURE,PNEUMONIA Physical Exam Vital Signs: Temp Pulse Resp BP Pulse Ox 98.4 F 82 20 123/53 L 96 02/13/18 12:00 02/13/18 12:00 02/13/18 12:00 02/13/18 12:00 02/13/18 12:00 Intake & Output 02/12/18 02/13/18 02/14/18 06:59 06:59 06:59 Intake Total 1650 1650 Balance 1650 1650 Weight 70.9 kg 71.2 kg General appearance: PRESENT: other - Patient is in ybpw-ul-elakruzm distress Head exam: PRESENT: atraumatic Eye exam: PRESENT: PERRLA Mouth exam: PRESENT: moist Neck exam: PRESENT: JVD. ABSENT: carotid bruit, lymphadenopathy, thyromegaly Respiratory exam: PRESENT: crackles, decreased breath sounds, rhonchi, wheezes Cardiovascular exam: PRESENT: systolic murmur, tachycardia GI/Abdominal exam: PRESENT: normal bowel sounds, soft. ABSENT: distended, guarding, mass, organolmegaly, rebound, tenderness Neurological exam: PRESENT: alert, awake, oriented to person, oriented to place, oriented to time, oriented to situation, CN II-XII grossly intact. ABSENT: motor sensory deficit Psychiatric exam: PRESENT: anxious Results Laboratory Results: 02/02/18 02/11/18 16:28 05:10 Troponin I < 0.012 NT-Pro-B Natriuret Pep 3470 H Impressions: Chest CT 02/05/18 17:30 IMPRESSION: 1. There is pulmonary fibrosis in a pattern without clear apical to basal gradient, featuring peripheral interstitial and ground-glass pulmonary opacity and mild tubular bronchiectasis. No significant bronchiolectasis or honeycombing. Findings are in an "inconsistent with UIP" pattern by ATS pulmonary fibrosis criteria. Primary differential consideration is NSIP. 2. Cardiomegaly and coronary artery disease. Chest X-Ray 02/10/18 00:00 IMPRESSION: Congestive heart failure with pulmonary edema plus-minus pneumonia. Assessment & Plan - Diagnosis (1) Acute respiratory failure with hypoxemia Is this a current diagnosis for this admission?: Yes Plan: Improving. Secondary to pneumonia. She is saturating well on 2 L of nasal cannula at rest. Patient has desaturation to the 80s on ambulation. She will need home O2. Chest CT done on 02/05 and showed pulmonary fibrosis and tubular bronchiectases (new diagnoses). Patient and family denies previous diagnoses of both. Will consult pulmonology for further recommendations. Discussed with Dr. Rahman over phone who will see and follow patient. CPT also ordered. 02/08/2018-patient is admitted with acute respiratory failure with hypoxia improving pulse ox is 96% on 2 L. pulmonary consult was requested because CT scan shows pulmonary fibrosis and tubular bronchiectasis. 02/09/2018-acute respiratory failure is high with hypoxia is resolving pulse ox on 2 L is 96%. The plan is to continue to use the BiPAP as needed basis and continued antibiotic therapy for at least another day. 02/10/2018-patient's pulse ox is 94% on 2 L. Using BiPAP as needed basis. Patient is on azithromycin as mentioned above I am going to continue azithromycin for a few days and added Rocephin 1 g IV daily. I placed Order for chest x-ray, Because she has had a low-grade fever of 99.7 and she is tachycardic. 02/11/2018-patient's pulse ox is 90% on 4 L oxygen. Using BiPAP on as needed basis. Patient is on IV Rocephin 1 g daily Zithromax 500 mg IV daily she is also on Diflucan for Taisha. 02/12/2018-pulse ox on 6 L is 90%. Patient is using BiPAP on a as needed basis. We are stopping the antibiotics as per the recommendations by ID. We will continue the nebulizations. 02/13/2018-patient's on 8 L of oxygen via nonrebreather pulse ox is 91%. Patient is not improving from pulmonary point of view. I am going to transfer her to [facility] for further management. I am going to get a further recommendations from the blood or blood bank technician Dr. Amato. Meantime going to do the ABG, and continue the scheduled nebulizations and put her on 6 L of nasal cannula. (2) Pulmonary fibrosis Is this a current diagnosis for this admission?: Yes Plan: Pulm consult as mentioned in #1. Note patient also has history of ?dermatomyositis. Echo also ordered. Report pending. 02/08/2018. CT scan shows pulmonary fibrosis and patient also history of dermatomyositis. Echocardiogram shows mild left ventricular systolic dysfunction. Stage II-IV mild to moderate diastolic dysfunction. 02/09/2018 patient has recently diagnosed pulmonary fibrosis on CT scan of the chest. Echocardiogram was done on the part of the study. Echocardiogram shows mild left ventricular systolic dysfunction on stage II-IV mild to moderate diastolic dysfunction. 02/10/2018-CT chest shows pulmonary fibrosis. Echocardiogram shows mild left ventricular systolic dysfunction with stage IV/stage II mild to moderate diastolic dysfunction. Waiting for the pulmonary input. The neurologist is planning to arrange for spirometry pre-and postbronchodilator therapy tomorrow. 02/12/2018-seen by the blood or blood bank technician Dr. Rogers he is going to see the patient as an outpatient. 02/13/2018-CT scan shows pulmonary fibrosis associated with left ventricular systolic dysfunction, stage II/stage IV mild to moderate diastolic dysfunction. To put her on IV Solu-Medrol 40 mg every 8 hours. (3) Pneumonia Qualifiers: Pneumonia type: due to unspecified organism Laterality: bilateral Lung location: unspecified part of lung Qualified Code(s): J18.9 - Pneumonia, unspecified organism Is this a current diagnosis for this admission?: Yes Plan: Patient denies recent hospitalization. She does have a recent sick contact. Patient has failed outpatient antibiotics particularly Augmentin and doxycycline. Continue broad IV antibiotic coverage for now. Flu testing negative. Discussed with Dr. Rahman over phone who will see and follow patient. CPT also ordered. Continue breathing treatments and mucomyst. 02/08/2018-she failed outpatient antibiotics particularly Augmentin doxycycline. Now she is on azithromycin and Zosyn. Vancomycin was discontinued. Cultures are negative so far. 02/09/2018-patient was treated for community-acquired pneumonia as an outpatient with Augmentin and doxycycline she failed to respond to the therapy here she is getting azithromycin the cultures are negative so far. 02/10/2018 patient was treated for community-acquired pneumonia as an outpatient and she was admitted after failed therapy. Cultures are negative so far. Sputum culture shows Taisha albicans. I am going to put her on her Diflucan p.o. medication. 02/11/2018-patient is on IV Rocephin 1 g daily Zithromax 500 mg IV daily and she started on Diflucan yesterday. 02/12/2018-patient was treated with community-acquired pneumonia she was receive d multiple antibiotics in the last few weeks. As per the ID recommendations I am going to discontinue the antibiotics and also Diflucan. 02/13/2018-patient was treated recently with multiple antibiotics for community- acquired pneumonia. As per the ID recommended ID recommendations we stopped antibiotics and also Diflucan. (4) CHF (congestive heart failure) Qualifiers: Heart failure chronicity: chronic Is this a current diagnosis for this admission?: Yes Plan: 02/11/2018-recent echocardiogram shows low normal left ventricular ejection fraction. Grade 2/grade 4 mild to moderatediastolic dysfunction. Chest x-ray done on 02/10/2018 shows pulmonary edema. Patient is on Lasix 20 mg p.o. twice daily I increased it to 40 twice a day. 02/12/2018-patient's chest x-ray shows pulmonary edema started on Lasix 20 twice daily and which was increased to 40 mg p.o. twice daily. On examination of the chest still crackles at the both lung bases. BNP is 3470. As per the echocardiogram left ventricular ejection fraction is normal patient had a grade 2/grade 4 mild to moderate diastolic dysfunction. All 32,018-patient is on Lasix 40 mg p.o. twice daily because of the respiratory distress I give extra dose of 40 mg of Lasix now and echocardiogram shows mild to moderate diastolic dysfunction. To repeat the chest x-ray today.
[2018-02-13 13:52] LABS: ABSOLUTE EOSINOPHILS # (AUTO) 0.1 10^3/uL (0.0-0.6); ABSOLUTE LYMPHOCYTES (AUTO) 0.5 10^3/uL (0.5-4.7); ABSOLUTE MONOCYTES (AUTO) 0.5 10^3/uL (0.1-1.4); BASOPHILS % (AUTO) 0.4 % (0-2); EOSINOPHILS % (AUTO) 1.3 % (0-6); HEMATOCRIT 34.6 % (36.0-47.0); HEMOGLOBIN 11.8 g/dL (12.0-15.5); LYMPHOCYTES % (AUTO) 5.1 % (13-45); MEAN CORPUSCULAR HGB CONC 34.1 g/dL (32.0-36.0); MEAN CORPUSCULAR VOLUME 82 fl (80-97); PLATELET COUNT 528 10^3/uL (150-450); RED BLOOD COUNT 4.22 10^6/uL (3.72-5.28); RED CELL DISTRIBUTION WIDTH 15.8 % (11.5-14.0); SEGMENTED NEUTROPHILS % (AUTO) 88.2 % (42-78); TOTAL CELLS COUNTED % (AUTO) 100 %; WHITE BLOOD COUNT 10.2 10^3/uL (4.0-10.5)
[2018-02-13 13:58] LABS: ALANINE AMINOTRANSFERASE 17 U/L (9-52); ALBUMIN 3.3 g/dL (3.5-5.0); ALKALINE PHOSPHATASE 109 U/L (38-126); ANION GAP 11 (5-19); ASPARTATE AMINO TRANSFERASE 49 U/L (14-36); BILIRUBIN,DIRECT 0.3 mg/dL (0.0-0.4); BILIRUBIN,TOTAL 0.4 mg/dL (0.2-1.3); BLOOD UREA NITROGEN 22 mg/dL (7-20); CALCIUM 8.6 mg/dL (8.4-10.2); CARBON DIOXIDE 32 mmol/L (22-30); CHLORIDE 93 mmol/L (98-107); GLUCOSE 98 mg/dL (75-110); SODIUM 135.9 mmol/L (137-145); TOTAL PROTEIN 7.1 g/dL (6.3-8.2)
[2018-02-13] MEDS ORDERED: FUROSEMIDE INJ/PF 20 MG/2 ML SDV IV ONE (14:30)
[2018-02-13 14:40] LABS: ARTERIAL BLOOD H2CO3 1.15 mmol/L (1.05-1.35); ARTERIAL BLOOD HCO3 29.4 mmol/L (20-24); ARTERIAL BLOOD O2 SATURATION 91.4 % (94-98); ARTERIAL BLOOD PCO2 38.1 mmHg (35-45); ARTERIAL BLOOD PH 7.51 (7.35-7.45); ARTERIAL BLOOD PO2 55.2 mmHg (80-100); ARTERIAL BLOOD TOTAL CO2 30.6 mmol/L (21-25)
[2018-02-13 14:44] LABS: ARTERIAL BLOOD FIO2 6L
--- NOTE | 2018-02-13 15:09 | RADIOLOGY REPORT (SQ) ---
EXAM DESCRIPTION: CT CHEST WITHOUT COMPLETED DATE/TIME: 02/13/2018 2:45 pm REASON FOR STUDY: shortness of breath COMPARISON: 02/07/2018. TECHNIQUE: CT scan performed of the chest without intravenous contrast. Images reviewed with lung, soft tissue and bone windows. Reconstructed coronal and sagittal MPR images reviewed. All images st ored on PACS. All CT scanners at this facility use dose modulation, iterative reconstruction, and/or weight based d osing when appropriate to reduce radiation dose to as low as reasonably achievable (ALARA). [facility]: Dose Right [facility]: CareDose [facility]: Dose Right [facility]: Teradose 4D [facility]: Mirifice RADIATION DOSE: CT Rad equipment meets quality standard of care and radiation dose reduction techniq ues were employed. CTDIvol: 9.0 mGy. DLP: 329 mGy-cm. mGy. LIMITATIONS: No technical limitations. FINDINGS: LUNGS AND PLEURA: Similar largely peripheral subpleural opacities without honeycombing. N o significant pleural effusion, however there are slightly more pronounced ground-glass opacities whe n compared to the prior from 1 week ago. HILAR AND MEDIASTINAL STRUCTURES: Mild chronic adenopathy. HEART AND VASCULAR STRUCTURES: Pronounced cardiomegaly. No pericardial effusion. No aortic aneurysm . UPPER ABDOMEN: No significant findings. Limited exam. THYROID AND OTHER SOFT TISSUES: No masses. No adenopathy. BONES: No significant finding. HARDWARE: None in the chest. OTHER: No other significant findings. IMPRESSION: 1. Slight progression in ground-glass densities when compared to prior. Superimposed o n pre-existing interstitial changes which otherwise looks similar compared to study from a week ago. This may represent mild progressive congestive failure. Of note, no significant pleural fluid howev er. TECHNICAL DOCUMENTATION: JOB ID: [id number] Quality ID # [id number]: Final reports with documentation of one or more dose reduction techniques (e.g., Au tomated exposure control, adjustment of the mA and/or kV according to patient size, use of iterative reconstruction technique) 2010 [employer]- All Rights Reserved Reading location - IP/workstation name: [email or web address]
[2018-02-13] MEDS: METHYLPREDNISOLONE INJ 40 MG/1 ML SDV IV SCH ×2 (16:42→23:50)
--- NOTE | 2018-02-13 20:08 | PROGRESS NOTE E ---
Progress Note NAME: CHENTE CHILDS : 1940 AGE: 77Y DATE: 02/13/2018 ROOM: 314 SUBJECTIVE: The patient is a 77-year-old female who came in with increased shortness of breath, treated for pneumonia, congestive heart failure, and bronchial asthma and possible interstitial lung disease. The patient has been diuresed for the last 2 to 3 days aggressively. This morning, the patient gets very short of breath with desaturations into the 80s. The patient was started on high flow nasal cannula and transferred to the ICU. Apparently doing well. The patient says she is breathing a lot better, using the high flow nasal cannula. The patient denies any fever, chills, increasing cough. No appreciable sputum production. Occasionally has had some hemoptysis. The patient has been on Eliquis over the last 8 years for exacerbation. OBJECTIVE: GENERAL: Awake, alert, oriented. Not in acute respiratory distress. VITAL SIGNS: Afebrile. Temperature 98.4, heart rate 82-108. Blood pressure 153/53, respirations 20, O2 saturation 96% on high flow nasal cannula. HEENT: Eyes: No jaundice or pallor. ENT: No ear drainage or nasal discharge. NECK: Supple. No neck tenderness. CHEST: No mass. No wheezing, no rhonchi. No coarse crackles. Fine rales bibasilar. CARDIAC: S1 distinct. Regular rate. No murmur. ABDOMEN: Flabby. Positive bowel sounds. Soft, nontender. EXTREMITIES: No swelling, no edema. No joint swelling. LABORATORY: CBC done today showed white count 10.2, hemoglobin 11.8, hematocrit 34.6, platelets 128. Chemistry done today shows sodium 135, potassium 4, chloride 93, CO2 of 32, BUN 72, creatinine 1.34, glucose 98, calcium 8.6. SGOT 49, SGPT 17. Alkaline phosphatase 109. NT-BNP is 2390, down from [address] two [address] scan done today showed absence of pulmonary embolism, but increased ground-glass opacities from both lungs, worse than 2 days ago. ASSESSMENT: 1. INTERSTITIAL LUNG DISEASE possible. Pulmonary edema cannot be excluded. Atypical infection or atypical mycobacteria infection also cannot be completely excluded. 2. BRONCHIAL ASTHMA. Currently stable. Not in acute bronchospasm. Pneumonia possible, cannot be completely excluded. PLAN: 1. Will plan to do a flexible bronchoscopy in the next few days. We need to take off Eliquis and aspirin for at least 3 to 4 days prior to flexible bronchoscopy. We may need to do some bronchial washings, bronchoalveolar lavage, and possible transbronchial lung biopsy to determine etiology of the increasing pulmonary infiltrates bilaterally. 2. Need Cardiology consult to clear the patient for flexible bronchoscopy and possible lung biopsy. Chest CT scan finding may be pulmonary edema rather interstital lung disease. Will hold off on blood thinners for the lung biopsy. DICTATING PHYSICIAN: TOMY ARELLANO MD,DESI,MPH [id number] PHY#: [id number] ID: [id number] JOB#: [id number] ACCT: [id number] cc: > MTDD
--- NOTE | 2018-02-13 20:29 | RADIOLOGY REPORT (SQ) ---
EXAM DESCRIPTION: CHEST SINGLE VIEW COMPLETED DATE/TIME: 02/13/2018 8:06 pm REASON FOR STUDY: worsening dyspnea COMPARISON: 02/10/2018 NUMBER OF VIEWS: One view. TECHNIQUE: Single frontal radiographic image of the chest acquired. LIMITATIONS: None. FINDINGS: LUNGS AND PLEURA: Diffuse interstitial pattern with unchanged ground-glass attenuation. N o large effusions. MEDIASTINUM AND HEART: Stable heart size and mediastinal structures. BONY STRUCTURES: No acute findings. HARDWARE: None. OTHER: No other significant finding. IMPRESSION: Pulmonary fibrosis. Superimposed pulmonary edema. No significant change TECHNICAL DOCUMENTATION: JOB ID: [id number] Reading location - IP/workstation name: [email or web address]
[2018-02-13] MEDS: PIOGLITAZONE HCL 30 MG TABLET PO SCH (21:58)
[2018-02-13] MEDS: INSULIN LISPRO 100 UNIT/ML 3 ML VIAL SUBCUT PRN (22:22)
[2018-02-13] MEDS ORDERED: FLUTICASONE/SALMETEROL DISKUS 250-50 MCG/DOSE IH ONE (23:32)
[2018-02-14] MEDS: ALBUTEROL SULFATE 0.083% NEB 2.5 MG/3 ML AMPUL NEB SCH ×4 (02:11→20:15)
[2018-02-14] MEDS: LANSOPRAZOLE 15 MG TAB.RAP.DR PO SCH (05:49)
--- NOTE | 2018-02-14 07:44 | PROGRESS NOTE E ---
Progress Note NAME: CHENTE CHILDS : 1940 AGE: 77Y DATE: 02/11/2018 ROOM: 314 SUBJECTIVE: The patient is a 77-year-old female who came in for increased shortness of breath, worsening for the last few months. Treated for pneumonia and pulmonary edema, and interstitial lung disease. Chest x-ray done yesterday showed worsening diffuse bilateral pulmonary infiltrates. CT scan done on 02/05/2018 showed hazy opacities in both lungs, suggestive for possible interstitial lung disease of nonspecific interstitial pneumonitis type versus pulmonary edema. There is no bronchiectasis or honeycombing signs to suggest pulmonary fibrosis. NT-BNP done yesterday showed elevated levels of 3470. Spirometry done today showed moderate to severe ventilatory lung defect. Bronchial asthma cannot be completely excluded. There was no significant bronchodilator response. Tonight, the patient was coughing severely. The patient was showing sputum to be purulent yellow-green phlegm and blood-tinged. Denies any fever, nausea, vomiting, and diarrhea. No chest pain. No acutely worsening dyspnea. Claims that her breathing is a little bit better. Her Lasix was increased this morning to 40 mg twice a day. The patient was seen by Infectious Disease, who recommended discontinuation of IV antibiotics. However, the increased purulent sputum production is concerning for an infectious process. Will send a sputum culture tonight for bacteria, fungus, and AFB. We recommend continuing the medications until the new sputum cultures come in. OBJECTIVE: GENERAL: The patient is awake, alert, oriented x3. Not in apparent respiratory distress. VITAL SIGNS: Afebrile. Temperature 98.6, T-max 99.7. Heart rate 60, blood pressure 137/65, respirations 16, saturations 90% on 4 liters nasal cannula. HEENT: Eyes: No conjunctival pallor. Ears/nose/throat: No ear drainage or nasal discharge. CHEST/LUNGS: Fine rales bilaterally. CARDIAC: S1, S2 distant. Regular rate. ABDOMEN: Flabby. Positive bowel sounds. Soft, nondistended, nontender. EXTREMITIES: No joint swelling or cellulitis. ASSESSMENT: 1. INTERSTITIAL LUNG DISEASE, POSSIBLY CONCOMITANT PNEUMONIA PLUS PULMONARY EDEMA CANNOT BE COMPLETELY EXCLUDED. 2. BRONCHIAL ASTHMA. EMPIRICALLY TREATED WITH ADVAIR. 3. HISTORY OF ATRIAL FIBRILLATION AND CONGESTIVE HEART FAILURE. PLAN: 1. Will send sputum culture tonight. 2. Continue antibiotics. 3. Culture for bacteria, fungus, and AFB. 4. Will start the patient on Advair 250 inhaler 1 puff twice daily. 5. Recommend to optimize CHF therapy. DICTATING PHYSICIAN: TOMY ARELLANO MD,DESI,MPH [id number] [id number] PHY#: [id number] ID: [id number] JOB#: [id number] ACCT: [id number] cc: > MTDD
[2018-02-14] MEDS: GLIMEPIRIDE 4 MG TABLET PO SCH ×2 (07:54→17:08)
[2018-02-14] MEDS: METHYLPREDNISOLONE INJ 40 MG/1 ML SDV IV SCH ×3 (07:54→23:19)
[2018-02-14] MEDS: INSULIN LISPRO 100 UNIT/ML 3 ML VIAL SUBCUT PRN ×4 (07:55→22:15)
--- NOTE | 2018-02-14 09:13 | PDOC PROGRESS REPORT ---
Subjective Progress Note for:: 02/14/18 Subjective:: 77 year old female with a past medical history of kir-ajbnysu-ixrfgtgqu diabetes mellitus, paroxysmal atrial fibrillation on Eliquis, GERD and history of dermatomyositis who presented with cough, fever and shortness of breath who was admitted with bilateral pneumonia failing two outpatient antibiotics. No acute event overnight. She says that her shortness of breath has remain the same for the past 2 days. She is saturating well on 2 L of nasal cannula at rest. She ambulated again yesterday afternoon and desaturated to 86%. She is not on home O2. No chest pain, no fever chills. 02/08/2018 no acute events overnight. Patient is comfortably in the chair on 2 L oxygen via nasal cannula. Pulse ox is 95-96 on 2 L. 02/09/2018-no acute events in the last 24 hours. Patient is comfortably in the chair on 2 L oxygen. Pulse ox is 95-96% on [address] scan shows that she has pulmonary fibrosis. Waiting for the pulmonary evaluation. She is also on antibiotic therapy for bilateral pneumonia. 02/10/2018-patient is tachycardic today heart rate is 107 be rechecked heart rate again it was 94. Also has a low-grade fever of 99.7. Is on azithromycin 500 mg p.o. daily. She denies any complaints. 02/11/2018-patient is afebrile temperature is 98.6 today but patient still tachycardic and shortness of breath. 02/12/2018-no acute events in the last 24 hours. Patient's T-max is 99.2. The recommendations from the infectious disease specialist Dr. Pop is to stop the antibiotics. I am going to implement her recommendations. Patient denies any complaints. 02/13/2018-patient's pulse ox's are 88% on 6 L nasal cannula. She was placed on BiPAP. With 8 L of oxygen on nonrebreather patient is saturating around 91%. Patient condition is little bit concerning to me on examination chest bilateral entry was decreased crackles and crepitations are present it may be secondary to pulmonary fibrosis versus pulmonary congestion secondary to congestive heart failure I discussed the care with the patient and his daughter and explained to them I need to transfer the patient to [facility] for closer watch and I discussed about her CODE STATUS at this present patient want everything to be done that means she is a full code. We are going to get in touch with the pulmonology Dr. Marks again for further recommendations. I am going to request for a stat ABG. 02/14/2018-no acute events in the last 24 hours. Patient was transferred to [facility] for close monitoring. Patient was seen by Dr. ho. Patient is on high flow oxygen because the pulse ox is around 88% on 6 L. Patient is afebrile. Not on any antibiotics. Reason For Visit: ACUTE RESPIRATORY FAILURE Physical Exam Vital Signs: Temp Pulse Resp BP Pulse Ox 98.5 F 95 20 137/72 H 93 02/14/18 08:00 02/14/18 08:19 02/14/18 08:19 02/14/18 08:00 02/14/18 08:19 Intake & Output 02/13/18 02/14/18 02/15/18 06:59 06:59 06:59 Intake Total 1650 699 Output Total 1750 Balance 1650 -1051 Weight 71.2 kg 71 kg General appearance: PRESENT: mild distress Head exam: PRESENT: atraumatic Eye exam: PRESENT: PERRLA Mouth exam: PRESENT: moist Neck exam: ABSENT: carotid bruit, JVD, lymphadenopathy, thyromegaly Respiratory exam: PRESENT: crackles, decreased breath sounds Cardiovascular exam: PRESENT: tachycardia GI/Abdominal exam: PRESENT: normal bowel sounds, soft. ABSENT: distended, guarding, mass, organolmegaly, rebound, tenderness Neurological exam: PRESENT: alert, awake, oriented to person, oriented to place, oriented to time, oriented to situation, CN II-XII grossly intact. ABSENT: motor sensory deficit Psychiatric exam: PRESENT: appropriate affect, normal mood. ABSENT: homicidal ideation, suicidal ideation Results Laboratory Results: 02/13/18 13:19 02/13/18 13:19 02/13/18 02/13/18 02/13/18 13:19 13:19 14:32 WBC 10.2 RBC 4.22 Hgb 11.8 L Hct 34.6 L MCV 82 MCH 28.0 MCHC 34.1 RDW 15.8 H Plt Count 528 H Seg Neutrophils % 88.2 H Lymphocytes % 5.1 L Monocytes % 5.0 Eosinophils % 1.3 Basophils % 0.4 Absolute Neutrophils 9.0 H Absolute Lymphocytes 0.5 Absolute Monocytes 0.5 Absolute Eosinophils 0.1 Absolute Basophils 0.0 Carbonic Acid 1.15 HCO3/H2CO3 Ratio 25:1 ABG pH 7.51 H ABG pCO2 38.1 ABG pO2 55.2 L ABG HCO3 29.4 H ABG O2 Saturation 91.4 L ABG Base Excess 6.0 FiO2 6L Sodium 135.9 L Potassium 4.0 Chloride 93 L Carbon Dioxide 32 H Anion Gap 11 BUN 22 H Creatinine 1.34 H Est GFR ( Amer) 47 L Est GFR (Non-Af Amer) 38 L Glucose 98 Calcium 8.6 Magnesium 1.7 Total Bilirubin 0.4 AST 49 H ALT 17 Alkaline Phosphatase 109 Total Protein 7.1 Albumin 3.3 L 02/11/18 21:30 Sputum Gram Stain - Final 02/11/18 21:30 Sputum Sputum Culture - Final NORMAL MADYSON 02/02/18 02/11/18 02/13/18 16:28 05:10 13:19 Troponin I < 0.012 NT-Pro-B Natriuret Pep 3470 H 2390 H Impressions: Chest CT 02/13/18 00:00 IMPRESSION: 1. Slight progression in ground-glass densities when compared to prior. Superimposed on pre-existing interstitial changes which otherwise looks similar compared to study from a week ago. This may represent mild progressive congestive failure. Of note, no significant pleural fluid however. Chest X-Ray 02/13/18 20:00 IMPRESSION: Pulmonary fibrosis. Superimposed pulmonary edema. No significant change Assessment & Plan - Diagnosis (1) Acute respiratory failure with hypoxemia Is this a current diagnosis for this admission?: Yes Plan: Improving. Secondary to pneumonia. She is saturating well on 2 L of nasal cannula at rest. Patient has desaturation to the 80s on ambulation. She will need home O2. Chest CT done on 02/05 and showed pulmonary fibrosis and tubular bronchiectases (new diagnoses). Patient and family denies previous diagnoses of both. Will consult pulmonology for further recommendations. Discussed with Dr. Rahman over phone who will see and follow patient. CPT also ordered. 02/08/2018-patient is admitted with acute respiratory failure with hypoxia improving pulse ox is 96% on 2 L. pulmonary consult was requested because CT scan shows pulmonary fibrosis and tubular bronchiectasis. 02/09/2018-acute respiratory failure is high with hypoxia is resolving pulse ox on 2 L is 96%. The plan is to continue to use the BiPAP as needed basis and continued antibiotic therapy for at least another day. 02/10/2018-patient's pulse ox is 94% on 2 L. Using BiPAP as needed basis. Patient is on azithromycin as mentioned above I am going to continue azithromycin for a few days and added Rocephin 1 g IV daily. I placed Order for chest x-ray, Because she has had a low-grade fever of 99.7 and she is tachycardic. 02/11/2018-patient's pulse ox is 90% on 4 L oxygen. Using BiPAP on as needed basis. Patient is on IV Rocephin 1 g daily Zithromax 500 mg IV daily she is also on Diflucan for Taisha. 02/12/2018-pulse ox on 6 L is 90%. Patient is using BiPAP on a as needed basis. We are stopping the antibiotics as per the recommendations by ID. We will continue the nebulizations. 02/13/2018-patient's on 8 L of oxygen via nonrebreather pulse ox is 91%. Patient is not improving from pulmonary point of view. I am going to transfer her to [facility] for further management. I am going to get a further recommendations from the cavity pump operator Dr. Amato. Meantime going to do the ABG, and continue the scheduled nebulizations and put her on 6 L of nasal cannula. 02/14/2018-pulse ox on high flow oxygen at 75% he is around 94% today. Patient is comfortably in the chair reading the newspaper. Denies any complaints. We will plan to do the repeat ABG today. A stat ABG shows pH is 7.5 probably patient is hyperventilating. With the PCO2 of 38 and PO2 58. IV Solu-Medrol 40 mg every 8 hours and she is getting nebulizer treatments. CT scan of the chest on admission shows pulmonary fibrosis. Patient is a not a condition to be discharged home. (2) Pulmonary fibrosis Is this a current diagnosis for this admission?: Yes Plan: Pulm consult as mentioned in #1. Note patient also has history of ?dermatomyositis. Echo also ordered. Report pending. 02/08/2018. CT scan shows pulmonary fibrosis and patient also history of dermatomyositis. Echocardiogram shows mild left ventricular systolic dysfunction. Stage II-IV mild to moderate diastolic dysfunction. 02/09/2018 patient has recently diagnosed pulmonary fibrosis on CT scan of the chest. Echocardiogram was done on the part of the study. Echocardiogram shows mild left ventricular systolic dysfunction on stage II-IV mild to moderate diastolic dysfunction. 02/10/2018-CT chest shows pulmonary fibrosis. Echocardiogram shows mild left ventricular systolic dysfunction with stage IV/stage II mild to moderate diastolic dysfunction. Waiting for the pulmonary input. The neurologist is planning to arrange for spirometry pre-and postbronchodilator therapy tomorrow. 02/12/2018-seen by the cavity pump operator Dr. Ho he is going to see the patient as an outpatient. 02/13/2018-CT scan shows pulmonary fibrosis associated with left ventricular systolic dysfunction, stage II/stage IV mild to moderate diastolic dysfunction. To put her on IV Solu-Medrol 40 mg every 8 hours. 02/14/2018-patient CT scan shows pulmonary fibrosis I discussed the CODE STATUS with the patient she want everything to be done. She is a full code. (3) Pneumonia Qualifiers: Pneumonia type: due to unspecified organism Laterality: bilateral Lung location: unspecified part of lung Qualified Code(s): J18.9 - Pneumonia, unspecified organism Is this a current diagnosis for this admission?: Yes Plan: Patient denies recent hospitalization. She does have a recent sick contact. Patient has failed outpatient antibiotics particularly Augmentin and doxycycline. Continue broad IV antibiotic coverage for now. Flu testing negative. Discussed with Dr. Rahman over phone who will see and follow patient. CPT also ordered. Continue breathing treatments and mucomyst. 02/08/2018-she failed outpatient antibiotics particularly Augmentin doxycycline. Now she is on azithromycin and Zosyn. Vancomycin was discontinued. Cultures are negative so far. 02/09/2018-patient was treated for community-acquired pneumonia as an outpatient with Augmentin and doxycycline she failed to respond to the therapy here she is getting azithromycin the cultures are negative so far. 02/10/2018 patient was treated for community-acquired pneumonia as an outpatient and she was admitted after failed therapy. Cultures are negative so far. Sputum culture shows Taisha albicans. I am going to put her on her Diflucan p.o. medication. 02/11/2018-patient is on IV Rocephin 1 g daily Zithromax 500 mg IV daily and she started on Diflucan yesterday. 02/12/2018-patient was treated with community-acquired pneumonia she was recei elen multiple antibiotics in the last few weeks. As per the ID recommendations I am going to discontinue the antibiotics and also Diflucan. 02/13/2018-patient was treated recently with multiple antibiotics for community- acquired pneumonia. As per the ID recommended ID recommendations we stopped antibiotics and also Diflucan. 02/14/2018-patient is off the antibiotics as per ID recommendations. Sputum cultures blood cultures are negative. (4) CHF (congestive heart failure) Qualifiers: Heart failure chronicity: chronic Is this a current diagnosis for this admission?: Yes Plan: 02/11/2018-recent echocardiogram shows low normal left ventricular ejection fraction. Grade 2/grade 4 mild to moderatediastolic dysfunction. Chest x-ray done on 02/10/2018 shows pulmonary edema. Patient is on Lasix 20 mg p.o. twice daily I increased it to 40 twice a day. 02/12/2018-patient's chest x-ray shows pulmonary edema started on Lasix 20 twice daily and which was increased to 40 mg p.o. twice daily. On examination of the chest still crackles at the both lung bases. BNP is 3470. As per the echo cardiogram left ventricular ejection fraction is normal patient had a grade 2/grade 4 mild to moderate diastolic dysfunction. -patient is on Lasix 40 mg p.o. twice daily because of the re spiratory distress I give extra dose of 40 mg of Lasix now and echocardiogram shows mild to moderate diastolic dysfunction. To repeat the chest x-ray today. 02/14/2018 patient is on Lasix 40 IV twice daily. Patient is not in fluid overload. Echocardiogram was done shows EF is normal with moderate diastolic dysfunction. Chest x-ray shows pulmonary fibrosis with superimposed edema. Latest BNP is 2390. - Time Time Spent with patient: 15-24 minutes Smoking Cessation Education: over 10 minutes Medications reviewed and adjusted accordingly: Yes
[2018-02-14] MEDS: FLUTICASONE/SALMETEROL DISKUS 250-50 MCG/DOSE IH SCH ×2 (09:44→22:11)
[2018-02-14] MEDS: DILTIAZEM HCL 240 MG CAPSULE.CR PO SCH ×2 (09:46→22:10)
[2018-02-14] MEDS: FUROSEMIDE 40 MG TABLET PO SCH ×2 (09:46→17:08)
[2018-02-14] MEDS: EZETIMIBE 10 MG TABLET PO SCH (09:46)
[2018-02-14] MEDS: ASPIRIN 81 MG TABLET, CHEWABLE PO SCH (09:46)
[2018-02-14] MEDS: APIXABAN 5 MG TABLET PO SCH ×2 (09:47→21:13)
[2018-02-14 09:49] LABS: ARTERIAL BLOOD BASE EXCESS 6.4 mmol/L; ARTERIAL BLOOD H2CO3 1.22 mmol/L (1.05-1.35); ARTERIAL BLOOD HCO3 30.2 mmol/L (20-24); ARTERIAL BLOOD O2 SATURATION 91.4 % (94-98); ARTERIAL BLOOD PCO2 40.4 mmHg (35-45); ARTERIAL BLOOD PH 7.49 (7.35-7.45); ARTERIAL BLOOD TOTAL CO2 31.5 mmol/L (21-25)
[2018-02-14 09:50] LABS: ARTERIAL BLOOD FIO2 75%
[2018-02-14] MEDS: MAGNESIUM OXIDE 400 MG TABLET PO SCH (09:52)
[2018-02-14 10:18] LABS: ALANINE AMINOTRANSFERASE 7 U/L (9-52); ALBUMIN 3.5 g/dL (3.5-5.0); ALKALINE PHOSPHATASE 115 U/L (38-126); ANION GAP 17 (5-19); ASPARTATE AMINO TRANSFERASE 53 U/L (14-36); BILIRUBIN,DIRECT 0.3 mg/dL (0.0-0.4); BILIRUBIN,TOTAL 0.5 mg/dL (0.2-1.3); BLOOD UREA NITROGEN 26 mg/dL (7-20); CALCIUM 8.7 mg/dL (8.4-10.2); CARBON DIOXIDE 30 mmol/L (22-30); CHLORIDE 89 mmol/L (98-107); GLUCOSE 289 mg/dL (75-110); POTASSIUM 3.6 mmol/L (3.6-5.0); SODIUM 136.3 mmol/L (137-145); TOTAL PROTEIN 7.6 g/dL (6.3-8.2)
[2018-02-14 10:44] LABS: HEMATOCRIT 36.3 % (36.0-47.0); MEAN CORPUSCULAR HEMOGLOBIN 27.1 pg (27.0-33.4); MEAN CORPUSCULAR HGB CONC 33.1 g/dL (32.0-36.0); MEAN CORPUSCULAR VOLUME 82 fl (80-97); PLATELET COUNT 656 10^3/uL (150-450); RED BLOOD COUNT 4.43 10^6/uL (3.72-5.28); RED CELL DISTRIBUTION WIDTH 15.8 % (11.5-14.0)
[2018-02-14 11:12] LABS: ABSOLUTE LYMPHOCYTES# (MANUAL) 0.6 10^3/uL (0.5-4.7); ABSOLUTE MONOCYTES # (MANUAL) 0.2 10^3/uL (0.1-1.4); ABSOLUTE NEUTROPHILS# (MANUAL) 8.2 10^3/uL (1.7-8.2); ANISOCYTOSIS SLIGHT; BASOPHILS % (MANUAL) 0 % (0-2); EOSINOPHILS % (MANUAL) 0 % (0-6); HYPOCHROMASIA SLIGHT; LYMPHOCYTES % (MANUAL) 6 % (13-45); MONOCYTES % (MANUAL) 2 % (3-13); PLATELET COMMENT INCREASED; POLYCHROMASIA SLIGHT; SEGMENTED NEUTROPHILS % (MAN) 91 % (42-78); TOTAL CELLS COUNTED 100; TOXIC GRANULATION SLIGHT
--- NOTE | 2018-02-14 13:55 | PULMONARY FUNCTION TEST ---
PULMONARY FUNCTION TEST PATIENT NAME: CHENTE CHILDS MR#: [id number] ROOM#: 314 DATE OF STUDY: 02/11/2018 AGE/RACE/GENDER: 77 F REFERRING MD: Tomy Arellano MD Procedure: Spirometry Pre-bronchodilator and post-bronchodilator REPORT: The pre-bronchodilator spirometry showed no obstructive airway defect with FEV 1/FVC ratio of 93.4% and FEV 1 of 53% and FVC of 42% post bronchodilator. IMPRESSION: This FVC/FEV 1 findings are suggestive of restrictive lung disease and ventilatory impairment. Cannot completely rule out bronchial asthma despite absence of significant bronchodilator response, and a normal FEV1/ FVC ratio.. INTERPRETING PHYSICIAN: TOMY ARELLANO MD,DESI,MPH /: [id number] TT: [id number] ID: [id number] /: [id number] TD: [id number] JOB: [id number] cc:TOMY ARELLANO M.D. JASS SAIMA SHABAZZ M.D. > MTDD
[2018-02-14] MEDS: ACETAMINOPHEN 325 MG TABLET PO PRN (22:10)
[2018-02-14] MEDS: PIOGLITAZONE HCL 30 MG TABLET PO SCH (22:10)
[2018-02-14 23:43] LABS: INTERNATIONAL RATION (INR) 1.22
[2018-02-14 23:44] LABS: PARTIAL THROMBOPLASTIN TIME 32.9 SEC (23.5-35.8)
[2018-02-14] MEDS: HEPARIN SOD (PORCINE) 1,000 UNIT/ML 10 ML VIAL IV PRN (23:51)
--- NOTE | 2018-02-14 23:56 | PROGRESS NOTE E ---
Progress Note NAME: CHENTE CHILDS : 1940 AGE: 77Y DATE: 02/14/2018 ROOM: 314 SUBJECTIVE: The patient is a 77-year-old female who came in with increasing shortness of breath, pulmonary edema, bronchial asthma, possible interstitial lung disease, and atrial fibrillation. Pulmonary infiltrates appear to be worsening over the last few days despite diuresis. The patient is feeling a lot better while on high flow nasal cannula therapy. Currently denies any fever, chills, or increased cough. Denies any chest pain. No sputum production or hemoptysis. OBJECTIVE: GENERAL: The patient is awake, alert, oriented. Afebrile. Currently not in apparent severe respiratory distress. Sitting comfortably in the bedside chair. VITAL SIGNS: Temperature 98.5, T-max 99.1. Heart rate 89, blood pressure 132/72, respiratory rate 22, saturation 90%. 75 FiO2 on high flow nasal cannula. HEENT: Eyes: No jaundice or pallor. ENT: No ear drainage, no nasal discharge. CHEST AND LUNGS: No wheezing, no rhonchi, coarse crackles. CARDIOVASCULAR: S1, S2 distinct. No murmur. ABDOMEN: Flabby. Positive bowel sounds. Soft, nondistended, nontender. EXTREMITIES: No joint swelling, no cellulitis. No bipedal edema. ASSESSMENT: 1. INTERSTITIAL LUNG DISEASE. Pulmonary edema cannot be completely excluded. Uncertain if the bilateral pulmonary infiltrates are truly interstitial lung disease. Inadequately treated CHF can present the same chest CT scan finding. Discussed patient's condition with chamfering machine operator - Dr Thomason (02/15/2018) to help evaluate and manage CHF and cardiac decompensation. 2. HISTORY OF CONGESTIVE HEART FAILURE AND ATRIAL FIBRILLATION. Currently on Eliquis. PLAN: 1. Cardiology consult to optimize CHF therapy and to evaluate the patient's cardiac decompenation, and to clear the patient for flexible bronchoscopy. Will hold Eliquis for 3-4 days prior to flexible bronchoscopy. 2. Continue Advair and Solu-Medrol. Will schedule the patient tentatively for flexible bronchoscopy on Wednesday. DICTATING PHYSICIAN: TOMY ARELLANO MD,DESI,MPH [id number] PHY#: [id number] ID: [id number] JOB#: [id number] ACCT: [id number] cc: > MTDD
[2018-02-14] MEDS: HEPARIN SODIUM,PORCINE/D5W 25,000 UNIT/250 ML RTUINJ IV PRN (23:57)
[2018-02-15] MEDS: ALBUTEROL SULFATE 0.083% NEB 2.5 MG/3 ML AMPUL NEB SCH ×5 (02:08→20:37)
[2018-02-15] MEDS: LANSOPRAZOLE 15 MG TAB.RAP.DR PO SCH (06:14)
[2018-02-15] MEDS: ACETAMINOPHEN 325 MG TABLET PO PRN ×2 (06:23→21:05)
[2018-02-15] MEDS: HEPARIN SOD (PORCINE) 1,000 UNIT/ML 10 ML VIAL IV PRN ×2 (07:38→15:40)
[2018-02-15] MEDS: INSULIN LISPRO 100 UNIT/ML 3 ML VIAL SUBCUT PRN ×4 (08:55→21:49)
[2018-02-15] MEDS: GLIMEPIRIDE 4 MG TABLET PO SCH ×2 (08:55→17:11)
[2018-02-15] MEDS: METHYLPREDNISOLONE INJ 40 MG/1 ML SDV IV SCH ×4 (08:55→23:17)
[2018-02-15] MEDS: MAGNESIUM OXIDE 400 MG TABLET PO SCH (11:32)
[2018-02-15] MEDS: ASPIRIN 81 MG TABLET, CHEWABLE PO SCH (11:32)
[2018-02-15] MEDS: DILTIAZEM HCL 240 MG CAPSULE.CR PO SCH ×2 (11:32→21:01)
[2018-02-15] MEDS: FUROSEMIDE 40 MG TABLET PO SCH ×2 (11:32→17:11)
[2018-02-15] MEDS: EZETIMIBE 10 MG TABLET PO SCH (11:33)
[2018-02-15] MEDS: FLUTICASONE/SALMETEROL DISKUS 250-50 MCG/DOSE IH SCH ×2 (11:34→21:01)
--- NOTE | 2018-02-15 14:00 | PDOC PROGRESS REPORT ---
Subjective Progress Note for:: 02/15/18 Subjective:: CHENTE CHILDS is a 77 year old female with a past medical history of [id number]-[id number] diabetes mellitus, paroxysmal atrial fibrillation on Eliquis, GERD and history of dermatomyositis who presented with cough, fever and shortness of breath who was admitted with bilateral pneumonia failing two outpatient antibiotics. Chest CT showed pulmonary fibrosis and bronchiectases (both of which are new diagnoses). She was saturating well on nasal cannula at rest but sats go down to 80s upon ambulation. 02/13/18: Patient had desaturation to the 80s even at rest hence was switched to high flow O2. Patient has also been evaluated by pulmonology and is planning to do bronchoscopy in 2-3 days. Her Eliquis has been switched to heparin drip on 02/14 for the anticipated procedure. No acute event overnight. Patient is saturating well and is comfortable in high flow. She says she has minimally productive cough. No fever or chills. Reason For Visit: ACUTE RESPIRATORY FAILURE Physical Exam Vital Signs: Temp Pulse Resp BP Pulse Ox 97.4 F 79 18 117/67 85 L 02/15/18 03:57 02/15/18 07:54 02/15/18 11:03 02/15/18 03:57 02/15/18 11:03 Intake & Output 02/14/18 02/15/18 02/16/18 06:59 06:59 06:59 Intake Total 699 720 62 Output Total 1750 1101 Balance -1051 -381 62 Weight 156 lb 8.451 oz 154 lb 5.177 oz General appearance: PRESENT: no acute distress, well-developed, well-nourished Head exam: PRESENT: atraumatic, normocephalic Eye exam: PRESENT: conjunctiva pink, EOMI, PERRLA. ABSENT: scleral icterus Ear exam: PRESENT: normal external ear exam Mouth exam: PRESENT: moist, tongue midline Neck exam: ABSENT: carotid bruit, JVD, lymphadenopathy, thyromegaly Respiratory exam: PRESENT: crackles - fine crackles bilaterallt, rales, rhonchi. ABSENT: wheezes Cardiovascular exam: PRESENT: RRR. ABSENT: diastolic murmur, rubs, systolic murmur Pulses: PRESENT: normal dorsalis pedis pul GI/Abdominal exam: PRESENT: normal bowel sounds, soft. ABSENT: distended, guarding, mass, organolmegaly, rebound, tenderness Rectal exam: PRESENT: deferred Neurological exam: PRESENT: alert, awake, oriented to person, oriented to place, oriented to time, oriented to situation, CN II-XII grossly intact. ABSENT: motor sensory deficit Results Laboratory Results: 02/14/18 09:33 02/14/18 09:33 02/02/18 02/11/18 02/13/18 16:28 05:10 13:19 Troponin I < 0.012 NT-Pro-B Natriuret Pep 3470 H 2390 H Impressions: Chest CT 02/13/18 00:00 IMPRESSION: 1. Slight progression in ground-glass densities when compared to prior. Superimposed on pre-existing interstitial changes which otherwise looks similar compared to study from a week ago. This may represent mild progressive congestive failure. Of note, no significant pleural fluid however. Chest X-Ray 02/13/18 20:00 IMPRESSION: Pulmonary fibrosis. Superimposed pulmonary edema. No significant change Assessment & Plan - Diagnosis (1) Acute respiratory failure with hypoxemia Is this a current diagnosis for this admission?: Yes Plan: Secondary to pneumonia on top of newly diagnosed pulmonayr fibrosis. Chest CT done on 02/05 and showed pulmonary fibrosis and tubular bronchiectases (new diagnoses). Patient and family denies previous diagnoses of both. Currently on high flow oxygen. Plan for bronchoscopy by Dr. Rogers. (2) Pulmonary fibrosis Is this a current diagnosis for this admission?: Yes Plan: Pulmonology following as mentioned in #1. Note patient also has history of ?dermatomyositis. (3) Pneumonia Qualifiers: Pneumonia type: due to unspecified organism Laterality: bilateral Lung location: unspecified part of lung Qualified Code(s): J18.9 - Pneumonia, unspecified organism Is this a current diagnosis for this admission?: Yes Plan: Patient denies recent hospitalization. She does have a recent sick contact. Patient has failed outpatient antibiotics particularly Augmentin and doxycycline. Continue broad IV antibiotic coverage for now. Flu testing negative. Noted antibiotics were discontinued by preceding hospitalist on 02/12/18 per ID recommendations. Continue breathing treatments and mucomyst. (4) Paroxysmal atrial fibrillation Is this a current diagnosis for this admission?: Yes Plan: Currently in sinus rhythm. Eliquis switched to heparin drip per pulmonology for anticipated bronch. Continue PO Cardizem. - Time Time Spent with patient: 25-34 minutes
[2018-02-15 17:12] LABS: CREATINE KINASE MB 1.33 ng/mL (<4.55)
[2018-02-15] MEDS: TIOTROPIUM BROMIDE DPI 5 CAP/KIT (18 MCG/CAP) IH SCH (19:56)
--- NOTE | 2018-02-15 20:22 | PROGRESS NOTE E ---
Progress Note NAME: CHENTE CHILDS : 1940 AGE: 77Y DATE: 02/15/2018 ROOM: 314 SUBJECTIVE: The patient is a 77-year-old female who came in for increased shortness of breath, acute pulmonary edema, congestive heart failure. Chest CT scan showing bilateral pulmonary infiltrates. Claimed that she is feeling a lot better for the last 2 days on high flow nasal cannula and 75% FiO2. Complained about coughing some yellow-green phlegm, occasionally clear. Denies any hemoptysis. No chest pain. No leg swelling. Started on Lasix 40 mg daily and Advair 250 twice a day. Denies any nausea, vomiting, diarrhea. OBJECTIVE: GENERAL: The patient is awake, alert, coherent, oriented x3, afebrile, not in apparent severe respiratory distress. VITAL SIGNS: Temperature of 97.4, heart rate 78, blood pressure is 117/67, respiratory is 20, saturation is 91% on a high flow nasal cannula. LABORATORY DATA: CBC done today showed a white count of 9, hemoglobin is 12, hematocrit is 36.3, platelet count is 656. ABG done yesterday at 9 showed pH of 7.49, pCO2 of 40, pO2 is 56, and oxygen saturation is 91% on 75% FiO2. Chemistry showed sodium is 138, potassium 4.1, chloride is 102, carbon dioxide is 27, BUN is 14, creatinine is 0.96, glucose 234, and calcium is 8.5. The patient's rheumatoid factor is negative. Antinuclear antibody is also negative. ESR was 67, which is elevated. NT-BNP on 02/13, was 2319 down from 3470. ASSESSMENT: 1. PULMONARY INFILTRATE POSSIBLY INTERSTITIAL LUNG DISEASE. PULMONARY EDEMA CAN PRESENT THE SAME THING ON CHEST CT SCAN. Especially if not adequately treated. Planning to schedule the patient for a flexible bronchoscopy and transbronchial lung biopsy and bronchoalveolar lavage on Wednesday after 3 or 4 days off Eliquis. Discussed the patient's condition with structural architect, Dr. Wilcox who is on-call to optimize CHF therapy. The patient may have underlying cardiac ischemia causing decompensation. I am cautious about performing transbronchial lung biopsy and exposing the patient to risk for pulmonary hemorrhage following lung biopsy if chest CT scan finding is more of a pulmonary edema. Need cardiology evaluation and opinion. The patient may not need a transbronchial lung biopsy if the patient is not adequately treated for CHF. The patient may require a cardiac cath or stress test to rule out underlying cardiac abnormality. I do not think the patient has dermatomyositis. There was no documentation of previous test or skin biopsy. CK before and troponin I were negative. The patient has unclear history of arthritis. Currently there is no arthritic finding, rheumatoid factors were negative and PHU was also negative. I do not think the patient has chronic interstitial disorder, sending a few more tests for evaluation today. The transbronchial lung biopsy may not be helpful if the patient has interstitial lung disease or UIP or nonspecific interstitial pneumonitis. To make that diagnosis the patient requires surgical lung biopsy with a thoracic surgeon. We will continue evaluate the patient in the next few days and determine need for a transbronchial lung biopsy. 2. History of atrial fibrillation. 3. Bronchial asthma cannot be completely excluded, currently empirically treated for bronchial asthma. The patient appeared to be tolerating the Advair DiskHaler. PLAN: We will wean the patient off of High Flow Nasal Cannula (HFNC) and see how she does. If the patient desaturates or complaining of increasing shortness of breath then we will put the patient back on high flow nasal cannula. DICTATING PHYSICIAN: TOMY ARELLANO MD,DESI,MPH [id number] [id number] PHY#: [id number] ID: [id number] JOB#: [id number] ACCT: [id number] cc: > MTDD
--- NOTE | 2018-02-15 20:37 | RADIOLOGY REPORT (SQ) ---
EXAM DESCRIPTION: CHEST SINGLE VIEW COMPLETED DATE/TIME: 02/15/2018 8:27 pm REASON FOR STUDY: pulmonary edema; ILD COMPARISON: 02/13/2018. EXAM PARAMETERS: NUMBER OF VIEWS: One view. TECHNIQUE: Single frontal radiographic view of the chest acquired. RADIATION DOSE: NA LIMITATIONS: None. FINDINGS: LUNGS AND PLEURA: Extensive pulmonary fibrosis. MEDIASTINUM AND HILAR STRUCTURES: No masses. Contour normal. HEART AND VASCULAR STRUCTURES: Cardiomegaly. BONES: No acute findings. HARDWARE: None in the chest. OTHER: No other significant finding. IMPRESSION: CARDIOMEGALY. EXTENSIVE CHRONIC PULMONARY FIBROSIS. THERE IS PROBABLY A COMPONENT OF C ONGESTIVE HEART FAILURE WELL. NO CHANGE FROM THE PRIOR STUDY. TECHNICAL DOCUMENTATION: JOB ID: [id number] [employer]- All Rights Reserved Reading location - IP/workstation name: MARCIAL
[2018-02-16] MEDS: HEPARIN SODIUM,PORCINE/D5W 25,000 UNIT/250 ML RTUINJ IV PRN (00:31)
[2018-02-16] MEDS: ALBUTEROL SULFATE 0.083% NEB 2.5 MG/3 ML AMPUL NEB SCH ×4 (02:25→20:03)
[2018-02-16 05:41] LABS: HEMATOCRIT 33.4 % (36.0-47.0); HEMOGLOBIN 10.9 g/dL (12.0-15.5); MEAN CORPUSCULAR HEMOGLOBIN 26.9 pg (27.0-33.4); MEAN CORPUSCULAR HGB CONC 32.7 g/dL (32.0-36.0); MEAN CORPUSCULAR VOLUME 82 fl (80-97); PLATELET COUNT 709 10^3/uL (150-450); RED BLOOD COUNT 4.05 10^6/uL (3.72-5.28); RED CELL DISTRIBUTION WIDTH 15.8 % (11.5-14.0)
[2018-02-16 05:44] LABS: WHITE BLOOD COUNT 19.6 10^3/uL (4.0-10.5)
[2018-02-16 05:54] LABS: ANION GAP 10 (5-19); BLOOD UREA NITROGEN 45 mg/dL (7-20); CALCIUM 8.6 mg/dL (8.4-10.2); CARBON DIOXIDE 33 mmol/L (22-30); CHLORIDE 95 mmol/L (98-107); GLUCOSE 272 mg/dL (75-110); POTASSIUM 3.4 mmol/L (3.6-5.0); SODIUM 138.4 mmol/L (137-145)
[2018-02-16 06:02] LABS: ABSOLUTE LYMPHOCYTES# (MANUAL) 0.8 10^3/uL (0.5-4.7); ABSOLUTE MONOCYTES # (MANUAL) 2.4 10^3/uL (0.1-1.4); ABSOLUTE NEUTROPHILS# (MANUAL) 16.5 10^3/uL (1.7-8.2); BASOPHILS % (MANUAL) 0 % (0-2); EOSINOPHILS % (MANUAL) 0 % (0-6); LYMPHOCYTES % (MANUAL) 4 % (13-45); MONOCYTES % (MANUAL) 12 % (3-13); SEGMENTED NEUTROPHILS % (MAN) 84 % (42-78); TOTAL CELLS COUNTED 100
[2018-02-16 06:03] LABS: ANISOCYTOSIS 1+; PLATELET COMMENT INCREASED; TOXIC VACUOLATION PRESENT
[2018-02-16] MEDS: LANSOPRAZOLE 15 MG TAB.RAP.DR PO SCH (06:05)
[2018-02-16] MEDS ORDERED: POTASSIUM CHLORIDE 10 MEQ CAPSULE.ER PO ONE (07:34)
[2018-02-16] MEDS: METHYLPREDNISOLONE INJ 40 MG/1 ML SDV IV SCH ×2 (07:42→17:07)
[2018-02-16] MEDS: INSULIN LISPRO 100 UNIT/ML 3 ML VIAL SUBCUT PRN ×4 (07:43→22:15)
[2018-02-16] MEDS: GLIMEPIRIDE 4 MG TABLET PO SCH ×2 (07:43→17:08)
[2018-02-16] MEDS: FLUTICASONE/SALMETEROL DISKUS 250-50 MCG/DOSE IH SCH ×2 (09:06→22:17)
[2018-02-16] MEDS: TIOTROPIUM BROMIDE DPI 5 CAP/KIT (18 MCG/CAP) IH SCH (09:07)
[2018-02-16] MEDS: DILTIAZEM HCL 240 MG CAPSULE.CR PO SCH ×2 (09:07→22:16)
[2018-02-16] MEDS: FUROSEMIDE 40 MG TABLET PO SCH ×2 (09:07→17:07)
[2018-02-16] MEDS: ASPIRIN 81 MG TABLET, CHEWABLE PO SCH (09:07)
[2018-02-16] MEDS: MAGNESIUM OXIDE 400 MG TABLET PO SCH (09:08)
[2018-02-16] MEDS: EZETIMIBE 10 MG TABLET PO SCH (09:09)
[2018-02-16] MEDS: HEPARIN SOD (PORCINE) 1,000 UNIT/ML 10 ML VIAL IV PRN (14:06)
--- NOTE | 2018-02-16 14:29 | PDOC PROGRESS REPORT ---
Subjective Progress Note for:: 02/16/18 Subjective:: CHENTE CHILDS is a 77 year old female with a past medical history of mnc-elrsgsx-rcxzscszh diabetes mellitus, paroxysmal atrial fibrillation on Eliquis, GERD and history of dermatomyositis who presented with cough, fever and shortness of breath who was admitted with bilateral pneumonia failing two outpatient antibiotics. Chest CT showed pulmonary fibrosis and bronchiectases (both of which are new diagnoses). She was saturating well on nasal cannula at rest but sats go down to 80s upon ambulation. 02/13/18: Patient had desaturation to the 80s even at rest hence was switched to high flow O2. Patient has also been evaluated by pulmonology and is planning to do bronchoscopy in 2-3 days. Her Eliquis has been switched to heparin drip on 02/14 for the anticipated procedure. No acute event overnight. Patient is saturating well and is comfortable on high flow at rest. She does have exertional dyspnea. No fever or chills. Reason For Visit: ACUTE RESPIRATORY FAILURE Physical Exam Vital Signs: Temp Pulse Resp BP Pulse Ox 98.5 F 78 16 129/62 H 88 L 02/16/18 08:13 02/16/18 08:13 02/16/18 12:28 02/16/18 08:13 02/16/18 12:28 Pulse Oximeter Continuous Start: 02/15/18 15:57 Freq: RTQ4 Status: Active Protocol: Document 02/16/18 12:28 [facility] (Rec: 02/16/18 12:29 [facility] [id number]) Pulse Oximetry Assessment Oxygen Saturation (92-100) 88 Oxygen Flow Rate (L/min) 30 Oxygen Delivery Method Nasal Cannula Fraction of Inspired Oxygen (FIO2) 80 Equipment Usage Equipment in Use Continuous SpO2 Machine # 1 Intake & Output 02/15/18 02/16/18 02/17/18 06:59 06:59 06:59 Intake Total 720 730 67 Output Total 1101 900 Balance -381 -170 67 Weight 154 lb 5.177 oz 153 lb 0.013 oz General appearance: PRESENT: no acute distress, well-developed, well-nourished Head exam: PRESENT: atraumatic, normocephalic Eye exam: PRESENT: conjunctiva pink, EOMI, PERRLA. ABSENT: scleral icterus Ear exam: PRESENT: normal external ear exam Mouth exam: PRESENT: moist, tongue midline Neck exam: ABSENT: carotid bruit, JVD, lymphadenopathy, thyromegaly Respiratory exam: PRESENT: rales. ABSENT: rhonchi Cardiovascular exam: PRESENT: RRR. ABSENT: diastolic murmur, rubs, systolic murmur Pulses: PRESENT: normal dorsalis pedis pul GI/Abdominal exam: PRESENT: normal bowel sounds, soft. ABSENT: distended, guarding, mass, organolmegaly, rebound, tenderness Rectal exam: PRESENT: deferred Neurological exam: PRESENT: alert, awake, oriented to person, oriented to place, oriented to time, oriented to situation, CN II-XII grossly intact. ABSENT: motor sensory deficit Results Laboratory Results: 02/16/18 04:23 02/16/18 04:23 02/16/18 02/16/18 04:23 04:23 WBC 19.6 H D RBC 4.05 Hgb 10.9 L Hct 33.4 L MCV 82 MCH 26.9 L MCHC 32.7 RDW 15.8 H Plt Count 709 H Seg Neutrophils % Not Reportable Lymphocytes % Not Reportable Monocytes % Not Reportable Eosinophils % Not Reportable Basophils % Not Reportable Absolute Neutrophils Not Reportable Absolute Lymphocytes Not Reportable Absolute Monocytes Not Reportable Absolute Eosinophils Not Reportable Absolute Basophils Not Reportable Sodium 138.4 Potassium 3.4 L Chloride 95 L Carbon Dioxide 33 H Anion Gap 10 BUN 45 H Creatinine 1.25 Est GFR ( Amer) 50 L Est GFR (Non-Af Amer) 42 L Glucose 272 H Calcium 8.6 02/02/18 02/11/18 02/13/18 16:28 05:10 13:19 Creatine Kinase CK-MB (CK-2) Troponin I < 0.012 NT-Pro-B Natriuret Pep 3470 H 2390 H 02/15/18 02/15/18 16:00 16:00 Creatine Kinase 51 CK-MB (CK-2) 1.33 Troponin I NT-Pro-B Natriuret Pep 4860 H Impressions: Chest CT 02/13/18 00:00 IMPRESSION: 1. Slight progression in ground-glass densities when compared to prior. Superimposed on pre-existing interstitial changes which otherwise looks similar compared to study from a week ago. This may represent mild progressive congestive failure. Of note, no significant pleural fluid however. Chest X-Ray 02/15/18 20:00 IMPRESSION: CARDIOMEGALY. EXTENSIVE CHRONIC PULMONARY FIBROSIS. THERE IS PROBABLY A COMPONENT OF CONGESTIVE HEART FAILURE WELL. NO CHANGE FROM THE P RIOR STUDY. Assessment & Plan - Diagnosis (1) Acute respiratory failure with hypoxemia Is this a current diagnosis for this admission?: Yes Plan: Secondary to pneumonia on top of newly diagnosed pulmonary fibrosis. Chest CT done on 02/05 and showed pulmonary fibrosis and tubular bronchiectases (new diagnoses). Patient and family denies previous diagnoses of both. Currently on high flow oxygen. Plan for bronchoscopy by Dr. Rogers. Discussed with pulmonology in length who is suspecting this is more CHF-related and has requested cardiology evaluation. Noted bedside spirometry results also consistent with restrictive lung disease. Discussed with cardiology who has agreed to evaluate patient as well. (2) Pulmonary fibrosis Is this a current diagnosis for this admission?: Yes Plan: Pulmonology following as mentioned in #1. Note patient also has history of dermatomyositis. (3) Pneumonia Qualifiers: Pneumonia type: due to unspecified organism Laterality: bilateral Lung location: unspecified part of lung Qualified Code(s): J18.9 - Pneumonia, unspecified organism Is this a current diagnosis for this admission?: Yes Plan: Patient denies recent hospitalization. She does have a recent sick contact. Patient had failed outpatient antibiotics particularly Augmentin and doxycycline. Continue broad IV antibiotic coverage for now. Flu testing negative. Noted antibiotics were discontinued by preceding hospitalist on 02/12/18 per ID recommendations. Continue breathing treatments and mucomyst. (4) Paroxysmal atrial fibrillation Is this a current diagnosis for this admission?: Yes Plan: Currently in sinus rhythm. Eliquis switched to heparin drip per pulmonology for anticipated bronch. Continue PO Cardizem. (5) Diastolic heart failure Qualifiers: Heart failure chronicity: chronic Qualified Code(s): I50.32 - Chronic diastolic (congestive) heart failure Is this a current diagnosis for this admission?: Yes Plan: Noted echo results which showed normal LVEF, grade 2 diastolic dysfunction and mildly reduced RV systolic function and mild pulmonary HTN. - Time Time Spent with patient: 25-34 minutes
[2018-02-16] MEDS: ACETAMINOPHEN 325 MG TABLET PO PRN (22:18)
--- NOTE | 2018-02-16 23:10 | PROGRESS NOTE E ---
Progress Note NAME: CHENTE CHILDS : 1940 AGE: 77Y DATE: 02/16/2018 ROOM: 314 SUBJECTIVE: The patient is a 77-year-old female who came with acute respiratory failure requiring noninvasive mechanical ventilation, currently on high flow nasal cannula on 80% FiO2 and tolerating it well. The patient is currently feeling a lot better. Denies any fever, chills, increasing cough or purulent sputum production or hemoptysis. Send test for connective tissue disease and myositis panel, results are pending. Seen by cardiology and the patient was told that she may need to go to [facility] for further evaluation and treatment. The patient is scheduled for a flexible bronchoscopy for Wednesday tentatively, but if family and patient want to go to [facility] we will cancel the flexible bronchoscopy, and [facility] may proceed with the flexible bronchoscopy and bronchial washing, and possible transbronchial lung biopsy. I do not feel that the transbronchial lung biopsy may provide any results which are conclusive for interstitial lung disease, unless the patient has sarcoidosis which will not be likely. I think the patient may eventually require a surgical lung biopsy via thoracotomy. After ruling out an underlying severe myocardial ischemia, severe coronary artery disease and atrial fibrillation can present with a worsening pulmonary edema. The patient may need further optimization of the CHF therapy. OBJECTIVE: GENERAL: The patient is awake, alert, coherent, oriented x3, afebrile. Not in apparent respiratory distress. VITAL SIGNS: Temperature 98.6 and heart rate of 73, blood pressure is 115/57, saturation is 90% on high flow nasal cannula with FiO2 of 80% and flow rate of 40%. EYES: No jaundice or pallor. EARS, NOSE, AND THROAT: No ear drainage. No nasal discharge. CHEST AND LUNGS: Crackling, fine rales bibasilarly. No wheezing, no rhonchi. CARDIOVASCULAR: S1, S2 distinct. Normal rate but irregular rhythm. ABDOMEN: Flabby, positive bowel sounds, soft, nondistended, nontender. EXTREMITIES: No joint swelling, no cellulitis, no bipedal edema. LABORATORY DATA: CBC done today showed a white count of 19,000 from 9000 yesterday, hemoglobin is 10.9, hematocrit is 33.4, platelet count is 709, no bands noted. Chemistry done today showed sodium is 138, potassium 3.4, chloride 95, CO2 is 33, BUN 45, creatinine 1.25, and glucose 272 and calcium is 8.6. NT-BNP is 4860 today up from 2390 two days ago despite the Bumex and Lasix. Creatinine kinase MB is normal at 1.33, CK also normal 51 units/L. The myositis workup PROJECT SCHEDULER antibody results are pending. Polymyositis scleroderma workup also pending. ASSESSMENT: 1. PULMONARY INFILTRATE BILATERALLY DIFFUSE. POSSIBLE INTERSTITIAL LUNG DISEASE. PULMONARY EDEMA CANNOT BE COMPLETELY EXCLUDED DUE TO UNDERLYING ATRIAL FIBRILLATION AND POSSIBLE MYOCARDIAL ISCHEMIA. 2. BRONCHIAL ASTHMA, CURRENTLY STABLE AND NOT IN BRONCHOSPASM. PLAN/RECOMMENDATION: 1. We will continue to schedule for a flexible bronchoscopy for Wednesday morning. However, if the patient wants to be transferred to [facility], I think the patient may benefit from it, so patient can have a multidisciplinary evaluation. The patient may require surgical lung biopsy, transbronchial lung biopsy eventually. The patient may have a high risk of bleeding because of the thrombocytosis. 2. Recommend transfer to [facility] if possible. DICTATING PHYSICIAN: TOMY ARELLANO MD,DESI,MPH [id number] PHY#: [id number] ID: [id number] JOB#: [id number] ACCT: [id number] cc: > YVONNED
[2018-02-17] MEDS: METHYLPREDNISOLONE INJ 40 MG/1 ML SDV IV SCH ×2 (00:09→08:11)
[2018-02-17] MEDS: ALBUTEROL SULFATE 0.083% NEB 2.5 MG/3 ML AMPUL NEB SCH ×2 (02:08→07:50)
[2018-02-17] MEDS: HEPARIN SODIUM,PORCINE/D5W 25,000 UNIT/250 ML RTUINJ IV PRN (04:22)
[2018-02-17] MEDS: LANSOPRAZOLE 15 MG TAB.RAP.DR PO SCH (05:03)
[2018-02-17 06:42] LABS: HEMATOCRIT 33.6 % (36.0-47.0); MEAN CORPUSCULAR HEMOGLOBIN 26.6 pg (27.0-33.4); MEAN CORPUSCULAR HGB CONC 32.7 g/dL (32.0-36.0); MEAN CORPUSCULAR VOLUME 82 fl (80-97); PLATELET COUNT 670 10^3/uL (150-450); RED BLOOD COUNT 4.12 10^6/uL (3.72-5.28); RED CELL DISTRIBUTION WIDTH 15.6 % (11.5-14.0); WHITE BLOOD COUNT 18.2 10^3/uL (4.0-10.5)
[2018-02-17 06:52] LABS: ANION GAP 9 (5-19); BLOOD UREA NITROGEN 42 mg/dL (7-20); CALCIUM 8.5 mg/dL (8.4-10.2); CARBON DIOXIDE 31 mmol/L (22-30); CHLORIDE 98 mmol/L (98-107); GLUCOSE 257 mg/dL (75-110); POTASSIUM 3.8 mmol/L (3.6-5.0); SODIUM 138.1 mmol/L (137-145)
[2018-02-17 07:02] LABS: ABSOLUTE LYMPHOCYTES# (MANUAL) 0.2 10^3/uL (0.5-4.7); ABSOLUTE MONOCYTES # (MANUAL) 0.9 10^3/uL (0.1-1.4); ABSOLUTE NEUTROPHILS# (MANUAL) 17.1 10^3/uL (1.7-8.2); ANISOCYTOSIS SLIGHT; BASOPHILS % (MANUAL) 0 % (0-2); EOSINOPHILS % (MANUAL) 0 % (0-6); HYPERSEGMENTED NEUTROPHILS PRESENT; LYMPHOCYTES % (MANUAL) 1 % (13-45); MONOCYTES % (MANUAL) 5 % (3-13); PLATELET COMMENT INCREASED; SCHISTOCYTES SLIGHT; SEGMENTED NEUTROPHILS % (MAN) 94 % (42-78); TOTAL CELLS COUNTED 100; TOXIC GRANULATION SLIGHT
[2018-02-17 07:03] LABS: PLATELET CLUMPS PRESENT
[2018-02-17] MEDS: GLIMEPIRIDE 4 MG TABLET PO SCH (08:11)
[2018-02-17] MEDS: INSULIN LISPRO 100 UNIT/ML 3 ML VIAL SUBCUT PRN ×2 (08:13→12:00)
--- NOTE | 2018-02-17 09:31 | PDOC TRANSFER SUMMARY ---
General Admission Date/PCP: 02/02/18 18:14 Resuscitation Status: Full Code - Transfer Diagnosis (1) Acute respiratory failure with hypoxemia Is this a current diagnosis for this admission?: Yes (2) Pulmonary fibrosis Is this a current diagnosis for this admission?: Yes (3) Pneumonia Is this a current diagnosis for this admission?: Yes (4) Paroxysmal atrial fibrillation Is this a current diagnosis for this admission?: Yes (5) Diastolic heart failure Is this a current diagnosis for this admission?: Yes - Transfer Medications Home Medications: Albuterol Sulfate [Proair HFA Inhalation Aerosol 8.5 gm MDI] 2 puff IH Q4HP PRN 02/02/18 Apixaban [Eliquis 5 mg Tablet] 5 mg PO Q12 02/02/18 Canagliflozin [Invokana] 100 mg PO DAILY 02/02/18 Diltiazem HCl [Diltiazem 24Hr ER] 240 mg PO Q12 02/02/18 Ezetimibe [Zetia 10 mg Tablet] 10 mg PO DAILY 02/02/18 Glimepiride [Amaryl 4 mg Tablet] 2 mg PO BID 02/02/18 Ipratropium/Albuterol Sulfate [Duoneb 3 ml Ampul] 3 ml NEB Q8HP PRN 02/02/18 Metformin HCl [Glucophage] 1,000 mg PO BIDBS 02/02/18 Omeprazole 20 mg PO DAILY 02/02/18 Pioglitazone HCl [Actos] 45 mg PO DAILY 02/02/18 Pravastatin Sodium [Pravachol] 20 mg PO DAILY 02/02/18 Transfer Medications: Current Medications Acetaminophen (Tylenol 325 Mg Tablet) 650 mg PO Q4HP PRN PRN Reason: PAIN Stop: 03/05/18 09:04 Last Admin: 02/16/18 22:18 Dose: 650 mg Documented by: Albuterol (Ventolin 0.083% Neb 2.5 Mg/3 Ml Ampul) 2.5 mg NEB RTQ6 ANDRE Stop: 03/04/18 19:59 Last Admin: 02/17/18 07:50 Dose: 2.5 mg Documented by: Albuterol (Proair Hfa Inhalation Aerosol 8.5 Gm Mdi) 2 puff IH Q4HP PRN PRN Reason: FOR SHORTNESS OF BREATH Stop: 03/10/18 14:01 Last Admin: 02/12/18 15:13 Dose: 2 puff Documented by: Albuterol/Ipratropium (Duoneb 3 Ml Ampul) 3 ml NEB RTQ8HP PRN PRN Reason: FOR SHORTNESS OF BREATH Stop: 03/10/18 14:01 Apixaban (Eliquis 5 Mg Tablet) 5 mg PO Q12 ANDRE Stop: 03/10/18 21:59 Last Admin: 02/14/18 21:13 Dose: Not Given Documented by: Aspirin (Aspirin 81 Mg Chewable Tablet) 81 mg PO DAILY ANDRE Stop: 03/09/18 09:59 Last Admin: 02/16/18 09:07 Dose: 81 mg Documented by: Azithromycin (Zithromax 250 Mg Tablet) 500 mg PO DAILY [facility] Stop: 02/24/18 09:59 Dextrose (Dextrose Inj 50% Syringe (25 Gm/50 Ml)) 12.5 gm IV PRN PRN; Protocol PRN Reason: FOR BG 50-69 IN ALERT PATIENT Stop: 03/04/18 18:05 Dextrose (Dextrose Inj 50% Syringe (25 Gm/50 Ml)) 25 gm IV PRN PRN; Protocol PRN Reason: PER PROTOCOL Stop: 03/04/18 18:05 Diltiazem HCl (Cardizem Cd 240 Mg Capsule.Cr) 240 mg PO Q12 [facility] Stop: 03/04/18 21:59 Last Admin: 02/16/18 22:16 Dose: 240 mg Documented by: Ezetimibe (Zetia 10 Mg Tablet) 10 mg PO DAILY ANDRE Stop: 03/11/18 09:59 Last Admin: 02/16/18 09:09 Dose: 10 mg Documented by: Furosemide (Lasix 40 Mg Tablet) 40 mg PO BID ANDRE Stop: 03/13/18 21:59 Last Admin: 02/16/18 17:07 Dose: 40 mg Documented by: Glimepiride (Amaryl 4 Mg Tablet) 2 mg PO BIDBS [facility] Stop: 03/10/18 16:59 Last Admin: 02/17/18 08:11 Dose: 2 mg Documented by: Glucagon (Glucagen Inj 1 Mg Vial) 1 mg IM PRN PRN; Protocol PRN Reason: Evaluate for BG < 70 Stop: 03/04/18 18:05 Glucose (Glutose 40% Gel 15 Gm Tube) 15 gm PO PRN PRN; Protocol PRN Reason: FOR BG 50-69 IN ALERT PATIENT Stop: 03/04/18 18:05 Glucose (Glutose 40% Gel 15 Gm Tube) 30 gm PO PRN PRN; Protocol PRN Reason: FOR BG < 50 IN ALERT PATIENT Stop: 03/04/18 18:05 Heparin Sodium (Porcine) (Heparin Inj 1,000 Unit/Ml 10 Ml Vial) 0 - 12,000 unit IV .BOLUS PER PROTOCOL PRN; Protocol PRN Reason: RESPOND TO aPTT VALUES Stop: 03/16/18 22:59 Last Admin: 02/16/18 14:06 Dose: 2,013 units Documented by: Heparin Sodium/Dextrose (Heparin Rtu 25,000 Unit/250 Ml D5w Premix) 25,000 unit in 250 mls @ 0 mls/hr IV CONTINUOUS PRN; Protocol PRN Reason: THIS MED IS NOT "PRN" Stop: 03/16/18 22:59 Last Admin: 02/17/18 04:22 Dose: 9.39 mls/hr Documented by: Insulin Human Lispro (Humalog Insulin 100 Unit/1 Ml 3 Ml Vial) 0 - 12 unit SUBCUT ACHSP PRN; Protocol PRN Reason: PER PROTOCOL Stop: 03/04/18 18:05 Last Admin: 02/17/18 08:13 Dose: 4 unit Documented by: Lansoprazole (Prevacid 15 Mg Odt Tablet) 15 mg PO Q6AM [facility] Stop: 03/05/18 05:59 Last Admin: 02/17/18 05:03 Dose: 15 mg Documented by: Magnesium Oxide (Mag-Ox 400 Mg Tablet) 400 mg PO DAILY [facility] Stop: 03/05/18 09:59 Last Admin: 02/16/18 09:08 Dose: 400 mg Documented by: Methylprednisolone Sodium Succinate (Solu-Medrol Inj/Pf 40 Mg/1 Ml Sdv) 20 mg IV Q8H [facility] Stop: 03/17/18 16:07 Last Admin: 02/17/18 08:11 Dose: 20 mg Documented by: Patient Own Medication (Pravastatin Sodium [Pravachol]) 20 mg PO .DAILY [facility] Stop: 03/05/18 09:59 Patient Own Medication (Canagliflozin [Invokana]) 100 mg PO .DAILY [facility] Stop: 03/11/18 09:59 Fluticasone/Salmeterol (Advair 250-50 Diskus 14 Dose/Diskus) 1 inh IH Q12 ANDRE Stop: 03/13/18 21:59 Last Admin: 02/16/18 22:17 Dose: 1 inh Documented by: Sodium Chloride (Saline Flush 2.5 Ml Monoject Prefil Syrin) 2.5 ml IV Q8 ANDRE Stop: 03/05/18 05:59 Last Admin: 02/17/18 05:03 Dose: 2.5 ml Documented by: Tiotropium [place] (Spiriva Handihaler 5 Cap/Kit (18 Mcg/Cap)) 1 cap IH DAILY ANDRE Stop: 03/17/18 16:59 Last Admin: 02/16/18 09:07 Dose: 1 cap Documented by: Johanna Jacquelin/Glycerin (Tucks Take-Alongs Pads 1 Each) 1 each TP DAILYP PRN PRN Reason: HEMORRHOIDS Stop: 03/13/18 18:13 Last Admin: 02/12/18 11:06 Dose: 1 each Documented by: - Allergies Allergies/Adverse Reactions: levofloxacin [From Levaquin] Allergy (Mild, Verified 02/02/18 14:46) N&V - Diet/Activity Discharge Diet: Cardiac, Diabetic Hospital Course Hospital Course: Admitting hospitalist's H&P: CHENTE CHILDS is a 77 year old female with a past medical history of hoc-grybzbx-imcjydhhe diabetes mellitus, paroxysmal atrial fibrillation on Eliquis, GERD and history of dermatomyositis who presented with cough, fever and shortness of breath. Patient says that her grandson had some URTI symptoms weeks ago. She started having some nasal congestion and nonproductive cough more than a week ago. She says that on last week, she developed gradually progressive shortness of breath. Her cough also started getting more productive with dark brownish sputum. She was seen in an outpatient clinic on Wednesday and was diagnosed with pneumonia and was prescribed with Augmentin and doxycycline. She said that she started taking the antibiotics on Wednesday but had persistence of symptoms. She had worsening shortness of breath. She says that earlier today, she had subjective fever with no chills. In the ER, her O2 sat was 90% on room air. She is not on home oxygen. Chest x-ray shows bilateral pneumonia. She denies chest pain, palpitations or dizziness. COURSE: Patient was initially admitted for bilateral pneumonia. She was started on broad spectrum IV antibiotics, azithromycin, vancomycin and Zosyn. Chest CT was done and showed pattern consistent with pulmonary fibrosis and bronchiectases. Pulmonology was consulted. Tele ID and cardiology were also consulted. Echocardiogram also showed normal EF of 65%, grade 2 diastolic dysfunction, mildly reduced RV systolic function and pulmonary HTN. Sputum culture was only positive for Taisha deemed a colonizer. Her antibiotics were discontinued per ID recommendation after 7 days. However, she developed leukocytosis again and started having productive cough. Zosyn and azithromycin were resumed. Her O2 requirement continued to increase. She is comfortable at rest but has exertional dyspnea. She has been on high flow for the past 3 days. Today, her sats went down to 86% on FiO2 of 80%. She improved to 95% sats on 100% FiO2. Cardiology and pulmonology recommend transfer to tertiary center for escalation of care and possible need for bronch or open lung biopsy. Her Eliquis was also switched to heparin drip for anticipation of possible diagnostic interventions. Discussed with [employer] supervisor/pulmnologist, Dr. Ramírez who accepted the transfer. Physical Exam Vital Signs: Temp Pulse Resp BP Pulse Ox 97.6 F 85 18 119/58 L 93 02/17/18 03:04 02/17/18 07:00 02/17/18 04:00 02/17/18 03:04 02/17/18 04:00 Pulse Oximeter Continuous Start: 02/15/18 15:57 Freq: RTQ4 Status: Active Protocol: Document 02/17/18 04:00 MED (Rec: 02/17/18 07:17 MED [id number]) Pulse Oximetry Assessment Oxygen Saturation (92-100) 93 Oxygen Flow Rate (L/min) 30 Oxygen Delivery Method Nasal Cannula Fraction of Inspired Oxygen (FIO2) 93 Equipment Usage Equipment in Use Continuous SpO2 Machine # 1 Intake & Output 02/16/18 02/17/18 02/18/18 06:59 06:59 06:59 Intake Total 730 1490 Output Total 900 1700 Balance -170 -210 Weight 153 lb 0.013 oz 152 lb 1.903 oz General appearance: PRESENT: no acute distress, well-developed, well-nourished Head exam: PRESENT: atraumatic, normocephalic Eye exam: PRESENT: conjunctiva pink, EOMI, PERRLA. ABSENT: scleral icterus Ear exam: PRESENT: normal external ear exam Mouth exam: PRESENT: moist, tongue midline Neck exam: ABSENT: carotid bruit, JVD, lymphadenopathy, thyromegaly Respiratory exam: PRESENT: rales. ABSENT: rhonchi, wheezes Cardiovascular exam: PRESENT: RRR. ABSENT: diastolic murmur, rubs, systolic murmur Pulses: PRESENT: normal dorsalis pedis pul GI/Abdominal exam: PRESENT: normal bowel sounds, soft. ABSENT: distended, guarding, mass, organolmegaly, rebound, tenderness Rectal exam: PRESENT: deferred Neurological exam: PRESENT: alert, awake, oriented to person, oriented to place, oriented to time, oriented to situation, CN II-XII grossly intact. ABSENT: motor sensory deficit Results Laboratory Results: 02/17/18 05:57 02/17/18 05:57 02/17/18 02/17/18 05:57 05:57 WBC 18.2 H RBC 4.12 Hgb 11.0 L Hct 33.6 L MCV 82 MCH 26.6 L MCHC 32.7 RDW 15.6 H Plt Count 670 H Seg Neutrophils % Not Reportable Lymphocytes % Not Reportable Monocytes % Not Reportable Eosinophils % Not Reportable Basophils % Not Reportable Absolute Neutrophils Not Reportable Absolute Lymphocytes Not Reportable Absolute Monocytes Not Reportable Absolute Eosinophils Not Reportable Absolute Basophils Not Reportable Sodium 138.1 Potassium 3.8 Chloride 98 Carbon Dioxide 31 H Anion Gap 9 BUN 42 H Creatinine 0.97 Est GFR ( Amer) > 60 Est GFR (Non-Af Amer) 56 L Glucose 257 H Calcium 8.5 02/02/18 02/11/18 02/13/18 16:28 05:10 13:19 Creatine Kinase CK-MB (CK-2) Troponin I < 0.012 NT-Pro-B Natriuret Pep 3470 H 2390 H 02/15/18 02/15/18 16:00 16:00 Creatine Kinase 51 CK-MB (CK-2) 1.33 Troponin I NT-Pro-B Natriuret Pep 4860 H Impressions: Chest CT 02/13/18 00:00 IMPRESSION: 1. Slight progression in ground-glass densities when compared to prior. Superimposed on pre-existing interstitial changes which otherwise looks similar compared to study from a week ago. This may represent mild progressive congestive failure. Of note, no significant pleural fluid however. Chest X-Ray 02/15/18 20:00 IMPRESSION: CARDIOMEGALY. EXTENSIVE CHRONIC PULMONARY FIBROSIS. THERE IS PROBABLY A COMPONENT OF CONGESTIVE HEART FAILURE WELL. NO CHANGE FROM THE PRIOR STUDY.
[2018-02-17] MEDS: TIOTROPIUM BROMIDE DPI 5 CAP/KIT (18 MCG/CAP) IH SCH (09:55)
[2018-02-17] MEDS: FLUTICASONE/SALMETEROL DISKUS 250-50 MCG/DOSE IH SCH (09:55)
[2018-02-17] MEDS: EZETIMIBE 10 MG TABLET PO SCH (09:57)
[2018-02-17] MEDS ORDERED: AZITHROMYCIN 250 MG TABLET PO SCH (10:00)
[2018-02-17] MEDS: DILTIAZEM HCL 240 MG CAPSULE.CR PO SCH (10:02)
[2018-02-17] MEDS: ASPIRIN 81 MG TABLET, CHEWABLE PO SCH (10:02)
[2018-02-17] MEDS: FUROSEMIDE 40 MG TABLET PO SCH (10:02)
[2018-02-17 11:53] VITALS: BP 124/75
[2018-02-17] MEDS: MAGNESIUM OXIDE 400 MG TABLET PO SCH (11:54)
[2018-02-17] MEDS ORDERED: PIPERACILLIN SODIUM/TAZOBACTAM 3.375 GM in NORMAL SALINE 100 ML IV SCH (12:00)
[2018-02-22 10:53] LABS: EJ ANTIBODY Negative (.); KU ANTIBODY Negative (.); MI 2 ANTIBODIES Negative (.); OJ ANTIBODY Negative (.); PL12 ANTIBODIES Negative (.); PL7 ANTIBODIES Negative (.); PM SCL 75 Negative (.); RNP RIBONUCLEOPROTEIN EXTRACTI 15.3 EU/ml (.); RO52 RNP RIBONUCLEOPROTEIN EXT Negative (.)
== END 2018-02-17 14:00 | disposition short-term general hospital (02) | DRG 189 ==
LOC: ER 14:43 → EH 18:14 → OBSVTOIN 18:14 → 5 21:50 → 3W 02-13 15:05
PROVIDERS: ADMIT Internal Medicine; ATTEND Internal Medicine
DX: J96.01 Acute respiratory failure with hypoxia (principal); J18.9 Pneumonia, unspecified organism; I50.32 Chronic diastolic (congestive) heart failure; J84.10 Pulmonary fibrosis, unspecified; I48.0 Paroxysmal atrial fibrillation; E11.9 Type 2 diabetes mellitus without complications; K21.9 Gastro-esophageal reflux disease without esophagitis; K44.9 Diaphragmatic hernia without obstruction or gangrene; J45.909 Unspecified asthma, uncomplicated; Z79.02 Long term (current) use of antithrombotics/antiplatelets; Z79.899 Other long term (current) drug therapy; Z79.84 Long term (current) use of oral hypoglycemic drugs; Z87.891 Personal history of nicotine dependence; Z88.1 Allergy status to other antibiotic agents
CPT/HCPCS: 36415; 36600; 71045; 71046; 71250; 80048; 80053; 80202; 82550; 82553; 82565; 82803; 82962; 83735; 83880; 84484; 85025; 85610; 85652; 85730; 86038; 86140; 86235; 86430; 87040; 87070; 87205; 87804; 93005; 93010; 93306; 94060; 94640; 94667; 94668; 94762; 94799; 96365; 96367; 99285; J0456; J0696; J1644; J1815; J1940; J2543; J2920; J3370; J3480; J3490; J7060; J7620